=== PATIENT | female | born 1940 | race Caucasian/White ===

== ENCOUNTER 2016-05-20 08:09 | Inpatient (IN) | payer OTHER ==
[~2016-05-20] VITALS: Ht 162.6 cm; Wt 65.3 kg
--- NOTE | ~2016-05-20 | CNG ---
[place] [address] CYTO-NONGYN REPORT PROCEDURE Name: MEL NIÑO SEPTEMBER Room #: 301-I DIS IN M.R.#: [id number] Admission: 05/20/16 Date of : 36 Discharge: 05/24/16 Report #: [id number] Path Case #: [id number] CYTOPATHOLOGY REPORT COLLECTION DATE: 05/23/2016 RECEIVED DATE: 05/23/2016 SUBMITTING PHYS: Dr. Magnus Shen OTHER PHYS: Dr. Freddy Dorsey CLINICAL HISTORY: Chest pain. SPECIMEN(S) RECEIVED: A.Pleural fluid, Right * * * * * * * * * * * * FINAL DIAGNOSIS: Pleural fluid, right: - Many mature appearing lymphocytes present amongst few mesothelial cells. COMMENT: Suggest clinical correlation and flow studies if a lymphoproliferative disorder is suspected. (DMITRY:; d/t: 05/26/16) PATHOLOGIST: Karthikeyan Duncan M.D. REPORT ELECTRONICALLY SIGNED BY: Karthikeyan Duncan M.D. DATE/TIME: 05/26/2016 12:35 * * * * * * * * * * * * GROSS PATHOLOGY: A. Pleural fluid, Right: The specimen is submitted unfixed, labeled "Mel Niño September". Received by the Cytology Department is 15 mL of gómez fluid out of a total volume of 900 ml's. One ThinPrep slide and a cell block were prepared. (clt 1.27.2017) WIRE HARNESS DESIGN ENGINEER(S): Heena Kennedy, TRESSA(ASCP) INITIAL CPT CODE(S): A; 54108, 56067 Professional services performed by [facility] at [address], [place] [address] Technical services performed by [facility] at [address] [place] [address]., [address], [place] [address]. [address] [place] [address] CYTO-NONGYN REPORT PROCEDURE Name: MEL NIÑO SEPTEMBER Room #: 301-I DIS IN M.R.#: [id number] Admission: 05/20/16 Date of : 36 Discharge: 05/24/16 Report #: [id number] Path Case #: [id number] [facility] [address] [place] [address], [address] [place] [address] PHONE: [phone] DIRECTOR: Jimy Fernandes M.D. * * * END OF REPORT * * *
--- NOTE | ~2016-05-20 | EKG ---
[place] [address] [facility] [place] [address] ELECTROCARDIOGRAM REPORT Name: TIO NIÑO SEPTEMBER Room #: 301-I ADM IN M.R.#: [id number] Admission: 05/20/16 Attend Phys: Ignacio Hayes MD Discharge: Date of : 36 Report #: [id number] THIS REPORT FOR: //name// [facility] ED Test Date: 2016-05-20 Test Time: 08:13:48 Pat Name: TIO NIÑO Department: Room: 301 I Gender: F Pmo Lead: GALINDO : 1940 Requested By: Perlita Mac Order Number: [id number] MD: Vinod Campbell Measurements Intervals [place] Rate: 90 P: 83 UT: 183 QRS: -63 QRSD: 99 T: 54 QT: 381 QTc: 467 Interpretive Statements Sinus rhythm Left anterior fascicular block Poor R wave progression Compared to ECG 12/19/2015 21:16:05 Left anterior fascicular block now present Ventricular premature complex(es) no longer present Electronically Signed On 05-21-2016 7:46:19 HEALTH CAREERS INSTRUCTOR by Vinod Campbell [email or web address] <ELECTRONICALLY SIGNED> By: Vinod aCmpbell MD, [facility] 05/21/16 0746 2 2 Vinod Campbell MD, [facility] /EPI
--- NOTE | ~2016-05-20 | EKG ---
[place] [address] [facility] [place] [address] ELECTROCARDIOGRAM REPORT Name: TIO NIÑO SEPTEMBER Room #: 301-I ADM IN M.R.#: [id number] Admission: 05/20/16 Attend Phys: Ignacio Hayes MD Discharge: Date of : 36 Report #: [id number] THIS REPORT FOR: //name// [facility] Test Date: 2016-05-21 Test Time: 07:06:35 Pat Name: TIO NIÑO Department: Room: 301 I Gender: F Manager Field Services: bridget : 1940 Requested By: Jaymie Iyer Order Number: [id number] MD: Vinod Campbell Measurements Intervals [place] Rate: 77 P: 47 NV: 214 QRS: -42 QRSD: 100 T: 57 QT: 430 QTc: 487 Interpretive Statements Sinus rhythm Borderline prolonged NV interval Left axis deviation Probable anteroseptal infarct, age indeterminate Baseline wander in lead(s) II,aVR No previous ECGs available for comparison Electronically Signed On 05-21-2016 8:04:33 BRAKE LINING DRILLER by Vinod Campbell [email or web address] <ELECTRONICALLY SIGNED> By: Vinod Campbell MD, [facility] 05/21/16 0804 0706 0706 Vinod Campbell MD, [facility] /EPI
--- NOTE | ~2016-05-20 | CATHLAB ---
[facility] [place] [address] INVASIVE PROCEDURE REPORT Name: TIO NIÑO SEPTEMBER Room #: 301-I ADM IN M.R.#: [id number] Admission: 05/20/16 Attend Phys: Nando Shah Discharge: Date of : 36 Date of Service: 05/21/16 1232 Report #: [id number] THIS REPORT FOR: //name// CC: Chito Hayes DATE OF SERVICE: 05/21/2016 CARDIAC CATHETERIZATION REPORT INDICATIONS: Unstable angina. Full risks, benefits, and alternatives of cardiac catheterization were explained to the patient. All questions were answered. Informed consent was obtained. The right groin area was prepped and draped in a sterile manner. Lidocaine was given subcutaneously. A 4-Indian sheath was inserted into the right femoral artery via modified Seldinger technique. CORONARY ANATOMY: 1. Left main is a large caliber vessel with an ostial 40-50% stenosis. 2. The LAD has a stent in the proximal segment, patent with moderate restenosis, 40-50%. 3. Within the stented area is a takeoff of a second diagonal artery with a stent in the ostium. This is a bifurcating stent procedure done previously. The ostium of the second diagonal artery has a 50-60% restenotic lesion. Medical therapy is recommended. 4. The first diagonal artery has an ostial 50% stenosis, unchanged from prior procedures. 5. The left circumflex artery gives off 1 obtuse marginal artery. There are no flow-limiting lesions in the left circumflex artery. 6. The RCA is a dominant vessel with a stent in the ostial segment. There is qylt-xl-wjhwcntb restenosis within the stent, 30-40%. 7. A left ventriculogram was performed revealing normal LV systolic function, ejection fraction of 20%. A left ventriculogram was performed in the COY projection revealing normal LV systolic function, ejection fraction of 60%. The LVEDP is approximately 18 mmHg. There is no gradient across the outflow tract. 8. FFR was performed on the ostial left main stenosis. A 6-Indian system was used. The patient was given 4000 units of heparin. The FFR wire was calibrated and a 2 minute infusion of Adenosine given through peripheral IV line was administered. The baseline FFR was 0.99, unchanged after 2 minutes of Adenosine. 9. At the end of the procedure, a closure device was used. IMPRESSION: 1. Patent bifurcating stents in the proximal left anterior descending and second diagonal artery with moderate restenosis. Recommend medical therapy. [address] [address] INVASIVE PROCEDURE REPORT Name: TIO NIÑO SEPTEMBER Room #: 301-I ADM IN M.R.#: [id number] Admission: 05/20/16 Attend Phys: Nando Shah Discharge: Date of : 36 Date of Service: 05/21/16 1232 Report #: [id number] 2. Mild to moderate restenosis in the stent in the ostium of the right coronary artery. 3. Mild to moderate ostial left main stenosis, negative fractional flow reserve. 4. Normal LV systolic function. PLAN: Recommend medical therapy. <ELECTRONICALLY SIGNED> By: Ed Ascencio MD 05/22/16 0930 1232 1549 Ed Ascencio MD /nt
--- NOTE | ~2016-05-20 | HC ---
[facility] [place] [address] CONSULTATION Name: TIO NIÑO SEPTEMBER Room #: 301-I ADM IN M.R.#: [id number] Admission: 05/20/16 Attend Phys: Ignacio Hayes MD Discharge: Date of : 36 Report #: [id number] THIS REPORT FOR: //name// CC: Chito Sorenson MD DATE OF SERVICE: 05/20/2016 REFERRING PROVIDER: Javed Maxwell D.O. REASON FOR CONSULTATION: Shortness of breath and pleural effusion. HISTORY OF PRESENT ILLNESS: Our group was asked to see the patient in consultation while hospitalized at [facility]. She has been followed by Dr. Sorenson of our group, last year last evaluation on 03/26/2016; has been having some shortness of breath and chest discomfort, chronic pleural effusions, for which had undergone thoracentesis twice in 2012 which were nondiagnostic transudate with persistent right greater than left pleural effusions. Subsequently, he had seen her for hemoptysis, most recently that resolved with antimicrobial therapy. She has had some persistent chronic cough productive of clear sputum. She states cough was throughout the day and also awakens her from sleep many nights. She also noted severe gastroesophageal reflux for which she takes ecko-ipj-dtavanv medications on a frequent basis but has not taken any proton pump inhibitors. Denies any fevers, chills or sweats. She also recently has been having some chest pain, although note some chronic chest heaviness. She states she feels like an elephant sitting on her chest. She has a prior known history of coronary artery disease with recent percutaneous intervention in May of 2015. Currently, she is resting comfortably in bed, on no supplemental oxygen but states she has not been ambulating since admission this morning. ALLERGIES: ____. PAST MEDICAL HISTORY: 1. History of coronary artery disease, status post sinus vzs-SH-jwgpefoyr NV in May 2015 requiring percutaneous interventions, second diagonal branch; prior history of interventions in the LAD and RCA. 2. Hypertension. 3. Hyperlipidemia. 4. Chronic diarrhea, possible irritable bowel syndrome. 5. History of coronary artery aneurysm. 6. History of multiple myeloma, complicated by amyloidosis. She states this was treated 4 years ago and has not had followup with her oncologist; in fact, the oncologist is no longer practicing. Clinical medicine only research. [address] [address] CONSULTATION Name: TIO NIÑO SEPTEMBER Room #: 301-I [facility] IN .R.#: [id number] Admission: 05/20/16 Attend Phys: Ignacio Hayes MD Discharge: Date of : 36 Report #: [id number] 7. The patient also has a history of left pneumothorax of unclear etiology. PAST SURGICAL HISTORY: Includes cholecystectomy, vaginal hysterectomy and foot surgery times 2 on the left. SOCIAL HISTORY: Ex-smoker, remote tobacco history. No significant alcohol consumption. 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 No recent travel. FAMILY HISTORY: Significant for both parents dying of emphysema or heavy tobacco users. Brother has cerebrovascular accident. REVIEW OF SYSTEMS: CONSTITUTIONAL: No fevers, chills or sweats, just some general malaise. The patient has feelings of impending doom prior to admission. ENT: No upper respiratory congestion, rhinorrhea or dysphagia. CARDIOVASCULAR: As described in HPI. GASTROINTESTINAL: Significant reflux disease and history of diarrhea and frequent abdominal cramping. GENITOURINARY: No dysuria. No frequency. INTEGUMENT: Denies any new rash. MUSCULOSKELETAL: No known joint pains or swelling. Rest of 12 point review of systems is normal as described in HPI. PHYSICAL EXAMINATION: VITAL SIGNS: Afebrile, pulse 80s, respiratory rate 18, blood pressure 166/73 and oxygen saturation 95% on room air. GENERAL: This is a thin elderly woman in no distress. HEENT: Clear oropharynx. Mallampati 1 airway. NECK: Supple. No lymphadenopathy. LUNGS: Markedly diminished right greater than left base. No wheezes or crackles. CARDIOVASCULAR: Heart was irregular. No murmurs noted. ABDOMEN: Soft and nontender. No masses. No hepatosplenomegaly. EXTREMITIES: Warm, 2+ pulses. No edema. INTEGUMENT: Without rash. LABORATORY DATA: CBC is normal. Chemistry profile also essentially normal. BNP was 2261. RADIOLOGICAL DATA: Chest x-ray reveals right greater than left bilateral pleural effusions associated atelectasis, no acute process ____ compared to more recent films. IMPRESSION: [facility] [address] [place] [address] CONSULTATION Name: TIO NIÑO SEPTEMBER Room #: 301-I ADM IN M.R.#: [id number] Admission: 05/20/16 Attend Phys: Ignacio Hayes MD Discharge: Date of : 36 Report #: [id number] 1. Pleural effusions, these appear to be chronic given the longstanding chronic nature it may be difficult for thoracentesis unless they appear free flowing and a repeat thoracentesis would be of benefit, unclear etiology, may be related to underlying cardiac disease or amyloidosis. 2. Chronic chest pain may be related pleural effusions above, may be related to underlying coronary artery disease, gastrointestinal process given her severe reflux or some other disease process. 3. Persistent cough maybe related to obstructive lung disease although it is not responded to bronchodilator inhalers in the past in our office; significant reflux may be considered, although the patient dismisses this idea . The severity of reflux sounds significant and severe reflux may be a cause of persistent cough; however, underlying lung disease should also be considered given her progressive exertional dyspnea as well. 4. Recent hemoptysis, nothing in the last few months. 5. History of coronary artery disease. 6. History of amyloidosis. 7. History of myeloma. SUGGESTIONS: 1. Spirometry pre and post-bronchodilator. 2. Check CT scan of the chest. 3. Await further cardiac workup per cardiology. 4. Trial twice daily proton pump inhibitor. 5. Additional recommendations pending results of above. If free flowing large pleural effusion on CT imaging might consider repeat thoracentesis to further evaluate. We will follow along with you. Thank you for requesting our suggestions. <ELECTRONICALLY SIGNED> By: Magnus Shen MD 05/21/16 1517 1536 0116 Magnus Shen MD /nt
--- NOTE | ~2016-05-20 | EKG ---
[place] [address] [address] [facility] [place] [address] ELECTROCARDIOGRAM REPORT Name: TIO NIÑO SEPTEMBER Room #: 301-I ADM IN M.R.#: [id number] Admission: 05/20/16 Attend Phys: Ignacio Hayes MD Discharge: Date of : 36 Report #: [id number] THIS REPORT FOR: //name// [facility] Test Date: 2016-05-22 Test Time: 14:58:52 Pat Name: TIO NIÑO Department: Room: 301 I Gender: F Franchise Sales Manager: Nando MARRERO : 1940 Requested By: Teena Brannon Order Number: [id number] MD: Vinod Campbell Measurements Intervals [place] Rate: 75 P: 24 MT: 197 QRS: -48 QRSD: 104 T: QT: 420 QTc: 470 Interpretive Statements Sinus rhythm LAD, consider left anterior fascicular block LVH with secondary repolarization abnormality Anterior infarct, old Baseline wander in lead(s) II Compared to ECG 05/21/2016 07:06:35 no significant change was found Electronically Signed On 05-23-2016 9:26:22 CAN SEALER by Vinod Campbell [email or web address] <ELECTRONICALLY SIGNED> By: Vinod Campbell MD, [facility] 05/23/16 0926 1458 1458 Vinod Campbell MD, [facility] /EPI
[~2016-05-20 08:09] MED LIST: ACETAMINOPHEN325 M1 PO; APAP500; APAP500 PO; APAP650 PO; ASPIR 8181 MG PO; B COMPLEX-VITA1 EACH PO; CLARITIN10 MG PO; COLACE 100 MG100 MG PO; FLAX OIL1000 MG PO; GAS-X125 MG PO; HYDROCODONE-AP1 EAC6 PO; IMDUR 30 MG TAB30 M1 PO; IMODIUM MULTI-1 EACH PO; LASIX 40 MG TAB40 M2; LASIX 40 MG TAB40 M2 PO; LIDODERM 5%1 PATC1 TRANSDERM; LISINOPRIL2.5 MG PO; LOPERAMIDE 2 MG2 M1; LOPERAMIDE 2 MG2 M1 PO; LOPRESSOR25 PO; METOPROLOL SUCC25 M1 PO; MULTIVITAMINS1 EAC7 PO; NITROGLYCERIN0.4 MG SUBLING; NITROSTAT0.4 M1 SL; PANTOPRAZOLE SO40 M1 PO; PEPCID AC10 MG; PLAVIX 75 MG TA75 M1 PO; POTASSIUM CHLO10 ME1 PO; PREDNISONE 20 M20 MG PO; PREMARIN0.625 MG PO; PREMARIN1.25 MG PO; SENNA PLUS TAB1 EACH; SENNA8.6 MG; TOPROL XL50 MG PO; TUMS PO; VITAMIN B-12 SUBLING; VITAMIN B-12500 MCG PO; ZOFRAN ODT4 M1 PO
[2016-05-20 08:10] VITALS: BP 149/87
[2016-05-20] MEDS ORDERED: TOPROL XL25 MG PO (08:27)
[2016-05-20] MEDS ORDERED: MELATONIN3 MG PO ×2 (08:28→08:32)
[2016-05-20 08:32] LABS: ABSOLUTE NEUTROPHILS 7.3 thou/uL (1.4-8.2); EOSINOPHILS 2.2 % (0.0-3.0); HEMATOCRIT 41.9 % (37.0-47.0); HEMOGLOBIN 14.5 gm/dL (12.0-15.0); LYMPHOCYTES 19.8 % (24.0-44.0); MCH 32.1 pg (26.0-34.0); MCHC 34.6 % (28.0-37.0); MCV 92.7 fL (80.0-100.0); MONOCYTES 7.6 % (1.0-8.0); PLATELET COUNT 267 thou/uL (150-400); POLYS 69.4 % (36.0-66.0); RBC 4.52 mil/uL (4.20-5.00); RDW 13.1 % (10.5-14.5); WBC 10.5 thou/uL (4.0-11.0)
[2016-05-20 08:34] LABS: MANUAL DIFF NO
[2016-05-20 08:53] LABS: ANION GAP 7 mmol/L (7-16); BUN 21 mg/dL (7-18); CALCIUM 9.5 mg/dL (8.5-10.1); CHLORIDE 103 mmol/L (98-107); CO2 27 mmol/L (21-32); GLUCOSE 88 mg/dL (70-99); POTASSIUM 4.1 mmol/L (3.5-5.1); SODIUM 137 mmol/L (136-145)
[2016-05-20 09:06] LABS: NT-PRO BRAIN NAT PEPTIDE 2261 pg/mL (<300); TROPONIN-I < 0.04 ng/mL (<0.04-0.07)
[2016-05-20 11:35] VITALS: BP 150/68
[2016-05-20 12:06] VITALS: BP 166/73
[2016-05-20 16:17] VITALS: BP 141/85
[2016-05-20 19:10] VITALS: BP 150/74
[2016-05-21] VITALS (11 sets, daily range): BP systolic 129–155; BP diastolic 55–78
[2016-05-22 04:00] VITALS: BP 108/58
[2016-05-22 04:48] VITALS: BP 108/55
[2016-05-22 05:42] LABS: HEMATOCRIT 39.2 % (37.0-47.0); HEMOGLOBIN 12.9 gm/dL (12.0-15.0); MCH 31.4 pg (26.0-34.0); MCV 95.3 fL (80.0-100.0); RBC 4.11 mil/uL (4.20-5.00); RDW 12.9 % (10.5-14.5); WBC 8.3 thou/uL (4.0-11.0)
[2016-05-22 05:52] LABS: CALCIUM 9.1 mg/dL (8.5-10.1); CREATININE 0.9 mg/dL (0.6-1.3); POTASSIUM 4.2 mmol/L (3.5-5.1)
[2016-05-22 08:38] VITALS: BP 118/60
[2016-05-22 12:39] VITALS: BP 135/70
[2016-05-22 14:11] LABS: HEMATOCRIT 39.8 % (37.0-47.0); HEMOGLOBIN 13.3 gm/dL (12.0-15.0); MCHC 33.3 % (28.0-37.0); MCV 93.1 fL (80.0-100.0); RBC 4.28 mil/uL (4.20-5.00); WBC 10.5 thou/uL (4.0-11.0)
[2016-05-22 14:19] LABS: CALCIUM 9.2 mg/dL (8.5-10.1); POTASSIUM 4.4 mmol/L (3.5-5.1)
[2016-05-22 14:22] LABS: PROTIME 10.6 Seconds (9.3-11.4)
[2016-05-22 20:00] VITALS: BP 157/69
[2016-05-23 04:00] VITALS: BP 126/58
[2016-05-23 07:51] VITALS: BP 125/67
[2016-05-23 12:00] VITALS: BP 128/60
[2016-05-23 12:59] LABS: TOTAL VOLUME 60
[2016-05-23 16:00] VITALS: BP 132/62
[2016-05-23 19:18] VITALS: BP 122/62
[2016-05-24 03:39] VITALS: BP 113/52
[2016-05-24 08:09] VITALS: BP 124/70
[2016-05-24 11:47] VITALS: BP 124/70
[2016-05-24 14:06] LABS: BF NUCLEATED CELLS 1620 /mm3 (0-499); BF RBC 3000 /uL (Not Estab.); CLARITY CLOUDY (Clear); COLOR YL (())
[2016-05-25 16:06] LABS: BODY FLUID ALBUMIN 1.8 g/dL (()); BODY FLUID AMYLASE 37 U/L (()); BODY FLUID GLUCOSE 99 mg/dL (()); BODY FLUID LDH 76 IU/L (()); BODY FLUID PROTEIN 2.6 g/dL (())
== END 2016-05-24 13:33 | disposition home or self-care (01) | DRG 287 ==
LOC: ER 08:09 → 3N 10:44 → EROBS 10:44 → 3N 11:35
PROVIDERS: Emergency Medicine; Internal Medicine Cardiovascular Disease; Internal Medicine Pulmonary Disease
PROC: B2111ZZ Fluoroscopy of Multiple Coronary Arteries using Low Osmolar Contrast (ICD-10-PCS; principal; 2016-05-21)
PROC: 4A023N7 Measurement of Cardiac Sampling and Pressure, Left Heart, Percutaneous Approach (ICD-10-PCS; principal; 2016-05-21)
PROC: B2151ZZ Fluoroscopy of Left Heart using Low Osmolar Contrast (ICD-10-PCS; principal; 2016-05-21)
PROC: 0W993ZZ Drainage of Right Pleural Cavity, Percutaneous Approach (ICD-10-PCS; 2016-05-23)
DX: I25.110 Atherosclerotic heart disease of native coronary artery with unstable angina pectoris (principal); J90 Pleural effusion, not elsewhere classified; R07.9 Chest pain, unspecified; I42.9 Cardiomyopathy, unspecified; G89.29 Other chronic pain; E78.5 Hyperlipidemia, unspecified; I25.41 Coronary artery aneurysm; I11.0 Hypertensive heart disease with heart failure; I50.9 Heart failure, unspecified; K52.9 Noninfective gastroenteritis and colitis, unspecified; Z95.5 Presence of coronary angioplasty implant and graft; Z90.710 Acquired absence of both cervix and uterus; Z90.49 Acquired absence of other specified parts of digestive tract; I25.2 Old myocardial infarction; Z87.891 Personal history of nicotine dependence; Z82.49 Family history of ischemic heart disease and other diseases of the circulatory system; Z91.19 Patient's noncompliance with other medical treatment and regimen
CPT/HCPCS: 10795

== ENCOUNTER 2016-08-22 15:55 | Inpatient (IN) | payer OTHER ==
[~2016-08-22] VITALS: Ht 162.6 cm; Wt 62.4 kg
--- NOTE | ~2016-08-22 | EKG ---
[place] [address] [address] [place] [address] ELECTROCARDIOGRAM REPORT Name: TIO NIÑO SEPTEMBER Room #: 202-P ADM IN M.R.#: [id number] Admission: 08/22/16 Attend Phys: Ignacio Hayes MD Discharge: Date of : 36 Report #: [id number] THIS REPORT FOR: //name// [facility] ED Test Date: 2016-08-22 Test Time: 15:56:36 Pat Name: TIO NIÑO Department: Room: 202 Gender: F Air Breaker Operator: : 1940 Requested By: Karen Abreu Order Number: [id number] MD: Vinod Campbell Measurements Intervals [place] Rate: 116 P: 0 IL: 146 QRS: -61 QRSD: 103 T: 59 QT: 332 QTc: 462 Interpretive Statements Sinus tachycardia Multiple ventricular premature complexes LAD, consider left anterior fascicular block Poor R-wave progression Compared to ECG 05/22/2016 14:58:52 nonspecific change in the ST and T waves segments Electronically Signed On 08-24-2016 12:39:53 CDT by Vinod Campbell [email or web address] <ELECTRONICALLY SIGNED> By: Vinod Campbell MD, [facility] 08/24/16 1239 1556 1556 Vinod Campbell MD, [facility] /EPI
--- NOTE | ~2016-08-22 | S ---
[facility] [place] [address] SURGICAL PATH RPT PROCEDURE Name: MEL NIÑO Room #: 202-P DIS IN M.R.#: [id number] Admission: 08/22/16 Date of : 36 Discharge: 08/26/16 Report #: [id number] Path Case #: [id number] PATHOLOGY REPORT COLLECTION DATE: 08/25/2016 RECEIVED DATE: 08/26/2016 SUBMITTING PHYS: Dr. Tiburcio Rinaldi OTHER PHYS: Dr. Chito Pierre SPECIMEN(S) RECEIVED: A.Gastritis/gastric body * * * * * * * * * * * * FINAL DIAGNOSIS: "Gastritis/gastric body", biopsy: - Gastric mucosa with mild reactive changes and mild chronic inflammation. - Negative H. pylori immunohistochemical stain (block A1); control reacted appropriately. PATHOLOGIST: Marilynn La M.D. REPORT ELECTRONICALLY SIGNED BY: Marilynn La M.D. DATE/TIME: 08/27/2016 22:01 * * * * * * * * * * * * GROSS PATHOLOGY: Received in formalin labeled "Mel Niño Loli, gastric body," are 3 segments of herrera soft tissue measuring 1.0 x 0.3 x 0.2 cm in aggregate dimensions and ranging from 0.2 to 0.4 cm in maximum dimension. The specimen is submitted entirely in cassette A1. (JORDANA; 08/26/2016) CLINICAL HISTORY: Gastritis, small hiatal hernia, S ring INITIAL CPT CODE(S): A; 24434, 79266 Professional services performed by [facility] at [facility] [address], [place] [address] Technical services performed by [facility] at [address] [place] [address]. [facility] [address] [place] [address] SURGICAL PATH RPT PROCEDURE Name: MEL NIÑO SEPTEMBER Room #: 202-P DIS IN M.R.#: [id number] Admission: 08/22/16 Date of : 36 Discharge: 08/26/16 Report #: [id number] Path Case #: [id number] [facility] [address] [address] PHONE: [phone] DIRECTOR: Jimy Fernandes M.D. * * * END OF REPORT * * *
--- NOTE | ~2016-08-22 | P ---
[facility] [place] [address] PROCEDURE REPORT Name: TIO NIÑO SEPTEMBER Room #: 202-P DIS IN M.R.#: [id number] Admission: 08/22/16 Attend Phys: Ignacio Hayes MD Discharge: 08/26/16 Date of : 36 Report #: [id number] THIS REPORT FOR: //name// CC: Chito Hayes INPATIENT UPPER ENDOSCOPY NOTE BRIEF HISTORY: The patient is a 76-year-old woman with known coronary disease and coronary stents, who was admitted with upper abdominal pain and chest pain. She does have occasional heartburn. It was felt that her current chest pain is noncardiac in etiology. PREOPERATIVE DIAGNOSES: Abdominal pain, chest pain and intermittent solid food dysphagia. POSTOPERATIVE DIAGNOSES: 1. Tjas-my-qzidrerk antral gastritis. 2. Small hiatus hernia. 3. Schatzki ring. MEDICATIONS: Deep sedation with propofol per anesthesia. SPECIMEN: Biopsies of gastritis. ESTIMATED BLOOD LOSS: 3 mL. PROCEDURE: EGD with biopsy. FINDINGS: Prior to propofol sedation, procedure of upper endoscopy discussed with the patient as well as potential risks and its complications. She indicates she understands and desires to proceed. DESCRIPTION OF PROCEDURE: With the patient in the left lateral decubitus position, the [employer] video endoscope was inserted in the cervical esophagus under direct vision without any difficulty. Examination of this organ through its entire length revealed normal esophageal mucosa down to the squamocolumnar junction. Examination of the squamocolumnar junction revealed normal mucosa. Mullen mucosa was not seen. However, intermittently a mild ring was seen. It was noted she does have complaints of intermittent solid food dysphagia. The ring had a typical appearance and there was no evidence of ulceration or Mullen mucosa. In addition, a small 2-cm sliding-type hiatus hernia was intermittently seen. Scope was advanced in to the stomach, which was examined on end views as well as the retroflexed views. There was a pattern of diffuse gastritis to a moderate degree. No ulcers, erosions or bleeding lesions were seen. Upon retroflexion, no mass lesions were seen. Pylorus was normal. Duodenal bulb was [facility] [address] [place] [address] PROCEDURE REPORT Name: TIO NIÑO SEPTEMBER Room #: 202-P DIS IN M.R.#: [id number] Admission: 08/22/16 Attend Phys: Ignacio Hayes MD Discharge: 08/26/16 Date of : 36 Report #: [id number] normal. Postbulbar duodenal sweep was noted to be normal as well. The scope was withdrawn back in the stomach and biopsies obtained of the gastritis and particularly to evaluate for H. pylori. We obtained several biopsies including one from the antrum. It was interesting to note that the antral biopsy appeared to be very deep after the biopsy was obtained. Therefore, hemostatic clip was placed on this site because it was deeper than usual. However, the first 2 clips did not break off of their deployment catheter as they should have. We then used the third clip a separate lot, which broke appropriately. The biopsy site was completely closed. At that point, the scope was slowly withdrawn and careful circumferential views confirmed the above findings. The patient tolerated procedure well. Due to her complaints of dysphagia and the finding of a ring, she was dilated with passage of a 50-Tanzanian Agustin dilator after the upper endoscopy. DISPOSITION: The patient with atypical chest pain. Upper endoscopy did not reveal evidence of any ulcers or esophagitis. I think it will be reasonable to continue PPI at this point in time. It is noted she is status post cholecystectomy and adhesions could be another source of her pain. No plans for additional GI workup at this point in time. <ELECTRONICALLY SIGNED> By: Tiburcio Rinaldi MD 08/30/16 1228 1402 0036 Tiburcio Rinaldi MD /nt
--- NOTE | ~2016-08-22 | HC ---
[facility] [place] [address] CONSULTATION Name: TIO NIÑO SEPTEMBER Room #: 202-P ADM IN M.R.#: [id number] Admission: 08/22/16 Attend Phys: Ignacio Hayes MD Discharge: Date of : 38 Report #: [id number] THIS REPORT FOR: //name// CC: Chito Hayes GASTROINTESTINAL CONSULT REASON FOR CONSULTATION: Chest pain/epigastric pain. HISTORY OF PRESENT ILLNESS: The patient is a 76-year-old white female, admitted through the Emergency Room after a sudden onset of extreme weakness at the mall. She relates that she experienced extreme weakness, almost fainting and inability to walk while she was at [facility]. On the day of admission 08/22/2016, she was emergently transported to the Emergency Room and it was also reported that she had a chest pain and upper abdominal pain. She has known coronary artery disease and had recently been hospitalized, undergoing cardiac catheterization with evidence of restenosis of 1/[address] During her hospitalization, she has been evaluated by Cardiology and serum troponin levels have not elevated, but EKG has been abnormal. She does relate indigestion on a daily basis and recurrent upper mid abdominal pain. She has a history of abdominal bloating and discomfort and has been diagnosed with IBS in the past. She may take Gas-X for abdominal bloating, Pepcid-AC for acid reflux or indigestion and occasional Pepto-Bismol. She has not noted any recent evidence of blood in her stool. In times past when on Plavix, she had bleeding from her nose, mouth, urine and had blood in her stool. She had been evaluated by Gastroenterology during her hospitalization in May 2015. At that time, she reported alternating diarrhea, constipation and abdominal pain with loose stools. She also had multiple upper GI symptoms. At first, she denied any previous history of EGD or colonoscopy and then later with recall, believes that she had an incomplete colonoscopy that was not able to be completed. PAST MEDICAL HISTORY: She has undergone previous cholecystectomy and hysterectomy. She has had recurrent pleural effusions requiring thoracentesis, coronary artery disease with previous OH. She has a history of multiple myeloma and amyloidosis. She underwent treatment for multiple myeloma in 2012 and no followup was required. CURRENT MEDICATIONS: Isosorbide mononitrate 30 mg per day (after IV nitroglycerin was discontinued), aspirin 81 mg per day, nitroglycerin as needed, simethicone 80 mg b.i.d. as needed, ondansetron 4 mg IV every 4 hours as needed, pantoprazole 40 mg IV b.i.d., and morphine sulfate p.r.n. ALLERGIES: No known drug allergies. [address] [address] CONSULTATION Name: TIO NIÑO SEPTEMBER Room #: 202-P [facility] IN M.R.#: [id number] Admission: 08/22/16 Attend Phys: Ignacio Hayes MD Discharge: Date of : 38 Report #: [id number] SOCIAL HISTORY: She does not smoke cigarettes or drink alcohol. FAMILY HISTORY: She has no known family history of colon cancer. REVIEW OF SYSTEMS: She has had no recent fevers or chills. She does not have significant shortness of breath, wheezing, or coughing. She had chest pain and upper abdominal pain as described above. She had no associated nausea or vomiting. She does have a history of IBS. PHYSICAL EXAMINATION: GENERAL: She appears alert and in no acute distress at rest, conversant and appropriate in conversation and afebrile. VITAL SIGNS: Blood pressure 114/68 and pulse 86 this morning. HEENT: No scleral icterus. NECK: Supple, without lymphadenopathy. CARDIOVASCULAR: Heart rate and rhythm regular. LUNGS: Clear to auscultation. ABDOMEN: Soft, nondistended with no obvious hepatosplenomegaly or palpable mass. She has mild tenderness to palpation in the epigastrium. EXTREMITIES: She has no significant peripheral edema. LABORATORY DATA: On 08/22, white blood cell count 10.8, hemoglobin 15.5, and platelet count 285,000. INR 1.0. Complete metabolic profile reveals sodium 133 and chloride low at 96. Serial troponin levels were not elevated. IMPRESSION: 1. Sudden onset weakness while shopping at the mall, etiology unclear. 2. Coronary artery disease. 3. Chronic dyspepsia for which she has taken p.r.n. Pepcid. 4. History of irritable bowel syndrome. 5. Personal history of multiple myeloma, treated in 2013 with amyloidosis. RECOMMENDATIONS: 1. Continue IV pantoprazole 40 mg b.i.d. 2. Monitor symptoms after discontinue IV nitroglycerin. 3. Hold on consideration of EGD for now. If cardiac status is stable off IV nitroglycerin, EGD may be considered prior to discharge. If symptoms fully resolved, PPI would also be a reasonable option. <ELECTRONICALLY SIGNED> By: Gaurav Solomon MD 08/24/16 1033 1224 2647 Gaurav Solomon MD /nt
[2016-08-22 15:55] VITALS: BP 141/81
[~2016-08-22 15:55] MED LIST changes: +MELATONIN3 MG PO; +TOPROL XL25 MG PO
[2016-08-22 16:11] LABS: POC CA IONIZED 4.8 mg/dL (4.5-5.3); POC HEMOGLOBIN 15.6 g/dL (12.0-15.0)
[2016-08-22 16:18] LABS: BASOPHILS 0.7 % (0.0-2.0); EOSINOPHILS 0.9 % (0.0-3.0); HEMATOCRIT 44.1 % (37.0-47.0); HEMOGLOBIN 15.5 gm/dL (12.0-15.0); LYMPHOCYTES 17.5 % (24.0-44.0); MCH 32.5 pg (26.0-34.0); MCHC 35.3 g/dL (28.0-37.0); MCV 92.2 fL (80.0-100.0); MONOCYTES 6.2 % (1.0-8.0); PLATELET COUNT 285 thou/uL (150-400); POLYS 74.7 % (36.0-66.0); RBC 4.78 mil/uL (4.20-5.00); RDW 13.3 % (10.5-14.5); WBC 10.8 thou/uL (4.0-11.0)
[2016-08-22 16:19] LABS: MANUAL DIFF NO
[2016-08-22 16:26] LABS: ANION GAP 10 mmol/L (7-16); BUN 17 mg/dL (7-18); CHLORIDE 96 mmol/L (98-107); CO2 27 mmol/L (21-32); CREATININE 1.1 mg/dL (0.6-1.0); GLUCOSE 123 mg/dL (74-106); SODIUM 133 mmol/L (136-145)
[2016-08-22 16:31] LABS: APTT 26.4 Seconds (24.5-32.8); PROTIME 10.2 Seconds (9.3-11.4)
[2016-08-22 16:34] LABS: TROPONIN-I < 0.04 ng/mL (<0.04-0.07)
[2016-08-22 17:41] VITALS: BP 105/71
[2016-08-22] MEDS ORDERED: ASPIR 8181 MG PO (21:16)
[2016-08-22] MEDS ORDERED: IBGARD90 MG PO (21:17)
[2016-08-22 23:13] VITALS: BP 133/54
[2016-08-23 04:55] VITALS: BP 98/50
[2016-08-23 05:03] LABS: ALBUMIN 3.1 g/dL (3.4-5.0); ALKALINE PHOSPHATASE 79 U/L (46-116); ANION GAP 6 mmol/L (7-16); BUN 16 mg/dL (7-18); CALCIUM 8.7 mg/dL (8.5-10.1); CHLORIDE 101 mmol/L (98-107); CO2 27 mmol/L (21-32); CREATININE 0.9 mg/dL (0.6-1.0); GLUCOSE 82 mg/dL (74-106); POTASSIUM 4.1 mmol/L (3.5-5.1); SGOT 25 U/L (15-37); SGPT 18 U/L (30-65); SODIUM 134 mmol/L (136-145); TOTAL BILIRUBIN 0.7 mg/dL (<0.1-1.0); TROPONIN-I < 0.04 ng/mL (<0.04-0.07)
[2016-08-23 06:45] VITALS: BP 114/68
[2016-08-23 11:35] VITALS: BP 127/68
[2016-08-23 15:35] VITALS: BP 101/55
[2016-08-23 19:17] VITALS: BP 128/77
[2016-08-24 03:14] VITALS: BP 112/55
[2016-08-24 07:00] VITALS: BP 146/88; BP 98/48
[2016-08-24] MEDS ORDERED: PROTONIX40 M1 PO (10:40)
[2016-08-24] MEDS ORDERED: IMDUR 30 MG TAB30 M1 PO (10:40)
[2016-08-24 11:10] VITALS: BP 101/43
[2016-08-24 17:30] VITALS: BP 100/40
[2016-08-24 19:57] VITALS: BP 144/64
[2016-08-25 04:41] VITALS: BP 113/55
[2016-08-25 07:35] VITALS: BP 139/69
[2016-08-25 12:06] VITALS: BP 129/62
[2016-08-25 14:55] VITALS: BP 132/62
[2016-08-25 19:23] VITALS: BP 138/57
[2016-08-26 02:49] VITALS: BP 136/68
[2016-08-26 07:05] VITALS: BP 119/54
[2016-08-26 09:38] VITALS: BP 119/54
== END 2016-08-26 11:50 | disposition home or self-care (01) | DRG 392 ==
LOC: ER 15:55 → 2N 17:03 → EROBS 17:03 → 2N 17:26
PROVIDERS: Emergency Medicine; Family Medicine
PROC: 0DB68ZX Excision of Stomach, Via Natural or Artificial Opening Endoscopic, Diagnostic (ICD-10-PCS; principal; 2016-08-25)
DX: K29.70 Gastritis, unspecified, without bleeding (principal); I42.9 Cardiomyopathy, unspecified; J90 Pleural effusion, not elsewhere classified; I25.110 Atherosclerotic heart disease of native coronary artery with unstable angina pectoris; E44.1 Mild protein-calorie malnutrition; R07.9 Chest pain, unspecified; I50.9 Heart failure, unspecified; K58.9 Irritable bowel syndrome, unspecified; I11.0 Hypertensive heart disease with heart failure; E78.5 Hyperlipidemia, unspecified; K44.9 Diaphragmatic hernia without obstruction or gangrene; K22.2 Esophageal obstruction; Z85.79 Personal history of other malignant neoplasms of lymphoid, hematopoietic and related tissues; Z90.49 Acquired absence of other specified parts of digestive tract; Z90.710 Acquired absence of both cervix and uterus; I25.2 Old myocardial infarction; Z95.5 Presence of coronary angioplasty implant and graft
CPT/HCPCS: 10081; 62110; 62900

== ENCOUNTER 2016-09-26 19:24 | Emergency (ER) | payer OTHER ==
[~2016-09-26] VITALS: Ht 162.6 cm; Wt 60.8 kg
--- NOTE | ~2016-09-26 | EKG ---
[place] [address] [facility] [place] [address] ELECTROCARDIOGRAM REPORT Name: TIO NIÑO [facility] [id number] Admission: 09/26/16 Attend Phys: Discharge: 09/26/16 Date of : 38 Report #: [id number] THIS REPORT FOR: //name// [facility] ED Test Date: 2016-09-26 Test Time: 19:27:40 Pat Name: TIO NIÑO Department: Room: Gender: F [employer] Attendant: SHANA : 1940 Requested By: Karen Abreu Order Number: [id number] MD: Vinod Campbell Measurements Intervals [place] Rate: 94 P: 81 MO: 190 QRS: -57 QRSD: 104 T: 57 QT: 398 QTc: 498 Interpretive Statements Sinus rhythm Left axis deviation Probable anteroseptal infarct, recent Compared to ECG 08/22/2016 15:56:36 Myocardial infarct finding now present Sinus tachycardia no longer present Ventricular premature complex(es) no longer present Electronically Signed On 09-27-2016 16:43:53 CDT by Vinod Campbell [email or web address] <ELECTRONICALLY SIGNED> By: Vinod Campbell MD, [facility] 09/27/16 1643 192 26 Vinod Campbell MD, [facility] /EPI
[~2016-09-26 19:24] MED LIST changes: +IBGARD90 MG PO; +PROTONIX40 M1 PO
[2016-09-26 19:48] LABS: HEMOGLOBIN 13.8 gm/dL (12.0-15.0); MCH 32.1 pg (26.0-34.0); MCHC 34.5 g/dL (28.0-37.0); MCV 93.2 fL (80.0-100.0); PLATELET COUNT 240 thou/uL (150-400); RBC 4.29 mil/uL (4.20-5.00); RDW 13.4 % (10.5-14.5); WBC 9.5 thou/uL (4.0-11.0)
[2016-09-26 19:49] LABS: MANUAL DIFF YES
[2016-09-26 19:54] LABS: ANION GAP 11 mmol/L (7-16); BUN 19 mg/dL (7-18); CALCIUM 9.6 mg/dL (8.5-10.1); CHLORIDE 101 mmol/L (98-107); CO2 22 mmol/L (21-32); GLUCOSE 93 mg/dL (74-106); POTASSIUM 4.1 mmol/L (3.5-5.1); SODIUM 134 mmol/L (136-145)
[2016-09-26 20:02] LABS: TROPONIN-I < 0.04 ng/mL (<0.04-0.07)
[2016-09-26 20:09] LABS: ABSOLUTE NEUTROPHILS 7.2 thou/uL (1.4-8.2); TOTAL CELL COUNT 100
[2016-09-26] MEDS ORDERED: TOPROL XL25 MG PO (20:16)
== END 2016-09-26 23:04 | disposition home or self-care (01) ==
LOC: ER 19:24
PROVIDERS: Emergency Medicine
DX: J90 Pleural effusion, not elsewhere classified (principal); I11.0 Hypertensive heart disease with heart failure; I50.9 Heart failure, unspecified; I25.10 Atherosclerotic heart disease of native coronary artery without angina pectoris; I42.9 Cardiomyopathy, unspecified; Z90.89 Acquired absence of other organs; Z85.79 Personal history of other malignant neoplasms of lymphoid, hematopoietic and related tissues; Z95.5 Presence of coronary angioplasty implant and graft

== ENCOUNTER → 2016-11-05 | Outpatient (CLI) | payer OTHER | LOC: LABMALL 14:58 | DX: R06.00 Dyspnea, unspecified (principal) ==

== ENCOUNTER → 2016-11-05 | Outpatient (CLI) | payer OTHER | LOC: RAD 14:52 | DX: J90 Pleural effusion, not elsewhere classified (principal) ==

== ENCOUNTER 2016-11-28 21:33 | Inpatient (IN) | payer OTHER ==
[~2016-11-28] VITALS: Ht 162.6 cm; Wt 61.4 kg
--- NOTE | ~2016-11-28 | HC ---
[facility] [place] [address] CONSULTATION Name: TIO NIÑO SEPTEMBER Room #: 459-P ADM IN M.R.#: [id number] Admission: 11/29/16 Attend Phys: Ignacio Hayes MD Discharge: Date of : 38 Report #: [id number] THIS REPORT FOR: //name// CC: Chito Hayes Registered Vascular Technologist (Rvt) DATE OF SERVICE: 12/11/2016 NEPHROLOGY CONSULTATION REASON FOR CONSULTATION: Elevated creatinine and hyponatremia. HISTORY OF PRESENT ILLNESS: A 76-year-old patient with known myeloma and amyloidosis, with known lambda light chains, was initially treated in 2013 for several months, but ended treatment due to financial reasons and has not been treated since. She has developed pulmonary disease, has had recurrent effusions and now pneumothoraces. Has had bilateral chest tubes; this admission now, just has one chest tube in. Has had pain and was treated with Toradol. Has had a low serum sodium and the creatinine has elevated from 0.8 to 1.5. PAST MEDICAL HISTORY: She has a history of heart failure, coronary artery disease. She has had the myeloma. She has had hysterectomy and cholecystectomy. She has had multiple thoracenteses and cardiac stents. ALLERGIES: She has had allergies reportedly to DOXYCYCLINE. FAMILY HISTORY: Really does not know much about her family history. Parents both were smokers and alcoholics. SOCIAL HISTORY: She has gone through 3 husbands; at this point, lives alone. Has had second-hand smoke exposure. REVIEW OF SYSTEMS: GENERAL: She feels poorly. EYES: Her vision is okay. ENT: Hearing okay. She swallows okay. She denies mouth ulcers. ENDOCRINE: No diabetes or thyroid disease. RESPIRATORY: Easily short-winded. No hemoptysis. CARDIAC: Currently, no swelling, angina or palpitations. GASTROINTESTINAL: Very poor appetite, not eating much. She has had some GI bleeding and epistaxis. GENITOURINARY: Reasonably good stream. No dysuria or stone disease. NEUROLOGIC: Generalized weakness. No syncope, seizure or stroke history. PSYCHIATRIC: She seems somewhat depressed. [facility] [address] [place] [address] CONSULTATION Name: TIO NIÑO SEPTEMBER Room #: 459-P [facility] IN M.R.#: [id number] Admission: 11/29/16 Attend Phys: Ignacio Hayes MD Discharge: Date of : 38 Report #: [id number] PHYSICAL EXAMINATION: GENERAL: This is a chronically ill-appearing, pale and weak patient, in a bad mood with flat affect. SKIN: Unremarkable. SKELETAL: Well developed, well nourished. HEENT: Extraocular movements are full. No scleral icterus. Hearing and vision intact. Mucous membranes moist. Tongue and buccal mucosa benign. NECK: Neck veins are flat. No JVD or carotid bruits. CHEST: Shows diminished breath sounds at the bases. Right chest tube in place. HEART: Regular. ABDOMEN: Slightly tender, soft. EXTREMITIES: Show no edema. Pulses intact. NEUROLOGIC: Generalized weakness. LABORATORY DATA: Urinalysis from the time of admission was benign. The kappa-lambda light chains in the serum showed a very, very high lambda light chain reading, with a low kappa light chain reading. Hemoglobin is 11.1. The creatinine level was low at 0.7; it is now up to 1.5. Sodium was 133; it is down to 122. Sugars have been okay. ASSESSMENT AND PLAN: Elevated creatinine and decreased sodium. She has hyponatremia. Could certainly be contributed to the renal insufficiency and decreased free water clearance on that basis. This all is likely due to the Toradol she was getting accompanied by some likely intravascular volume depletion. I agree with the saline at this time. Sending urine for sodium, urine for creatinine, urine for osmolarity and serum for osmolarity; all of which are appropriate. Probably, we should check her thyroid as well, but the TSH actually was 2.6 earlier this admission, so maybe would not need to do that. The possibility of adrenal insufficiency must be entertained, but there is no hyperkalemia to suggest that or metabolic acidosis. I suspect IV fluids, check studies as above. It is possible that hyponatremia has also contributed to by the increased light chains in the serum and could be an element of pseudohyponatremia, but we will be able to discern that once we get the serum osmolarity, which has already been ordered and we will follow her along. <ELECTRONICALLY SIGNED> By: Amarjit Sandoval MD 12/16/16 1154 0948 1031 Amarjit Sandoval MD /nt
--- NOTE | ~2016-11-28 | EKG ---
[address] [address] ELECTROCARDIOGRAM REPORT Name: TIO NIÑO FAHAD Room #: 459-P ADM IN M.R.#: [id number] Admission: 11/29/16 Attend Phys: Ignacio Hayes MD Discharge: Date of : 38 Report #: [id number] THIS REPORT FOR: //name// [facility] Test Date: 2016-12-07 Test Time: 20:18:40 Pat Name: TIO NIÑO Department: Room: 459 Gender: F Insurance Claim Approver: zeke hinton rn : 1940 Requested By: Piper Shaffer Order Number: [id number] MD: Adrián Sawyer Measurements Intervals [place] Rate: 89 P: 43 [place]: 193 QRS: -45 QRSD: 109 T: 64 QT: 389 QTc: 474 Interpretive Statements Sinus rhythm Ventricular premature complex Incomplete left bundle branch block Consider anterior infarct Compared to ECG 09/26/2016 19:27:40 Ventricular premature complex(es) now present Left bundle-branch block now present Left-axis deviation no longer present Myocardial infarct finding still present Electronically Signed On 12-07-2016 22:23:56 CDT by Adrián Sawyer [email or web address] <ELECTRONICALLY SIGNED> By: Adrián Sawyer MD 12/07/16 2223 17 17 Adrián Sawyer MD /EPI
--- NOTE | ~2016-11-28 | CNG ---
[facility] [place] [address] CYTO-NONGYN REPORT PROCEDURE Name: MEL NIÑO FAHAD Room #: 459-P ADM IN M.R.#: [id number] Admission: 11/29/16 Date of : 38 Discharge: Report #: [id number] Path Case #: [id number] CYTOPATHOLOGY REPORT COLLECTION DATE: 12/04/2016 RECEIVED DATE: 12/05/2016 SUBMITTING PHYS: Dr. Sarkis Sorenson OTHER PHYS: Dr. Freddy Dorsey CLINICAL HISTORY: Right pneumothorax. SPECIMEN(S) RECEIVED: A.Pleural fluid, Left * * * * * * * * * * * * FINAL DIAGNOSIS: A. Left Pleural fluid: - No malignant epithelial cells identified. Rare mesothelial cells with numerous inflammatory cells identified. PATHOLOGIST: Elicia Gatica M.D. REPORT ELECTRONICALLY SIGNED BY: Elicia Gatica M.D. DATE/TIME: 12/08/2016 16:34 * * * * * * * * * * * * GROSS PATHOLOGY: A. Pleural fluid, Left: The specimen is submitted unfixed, labeled "Mel Niño September". Received by the Cytology Department is 10 mL of cloudy yellow fluid. One ThinPrep slide and a cell block were prepared. (clt 12.05.2016) PURCHASE REQUEST EDITOR(S): TRESSA Henriquez([facility]) INITIAL CPT CODE(S): A; 45618, 56269 Professional services performed by [facility] at [facility] [address], [place] [address] Technical services performed by [facility] at [address] [place] [address]., [address], [place] [address]. [facility] [address] [place] [address], [facility] [address] [place] [address] [facility] [address] [place] [address] CYTO-NONGYN REPORT PROCEDURE Name: MEL NIÑO SEPTEMBER Room #: 459-P ADM IN M.R.#: [id number] Admission: 11/29/16 Date of : 38 Discharge: Report #: [id number] Path Case #: [id number] PHONE: [phone] DIRECTOR: Jimy Fernandes M.D. * * * END OF REPORT * * *
--- NOTE | ~2016-11-28 | HC ---
[facility] [place] [address] CONSULTATION Name: TIO NIÑO SEPTEMBER Room #: 459-P ADM IN M.R.#: [id number] Admission: 11/29/16 Attend Phys: Ignacio Hayes MD Discharge: Date of : 38 Report #: [id number] THIS REPORT FOR: //name// CC: Chito Hayes MD [employer] DATE OF SERVICE: 11/29/2016 HISTORY OF PRESENT ILLNESS: The patient is a 76-year-old female who reports an episode of hematochezia with clots on Thursday. She has not had further episodes since then. She has a history of pleural effusion and underwent a thoracentesis apparently on Thursday. She was complaining of pain at the site as well as some shortness of breath and was diagnosed through the Emergency Room yesterday with a pneumothorax; therefore, underwent a chest tube placement by Dr. Avalos this morning. The patient has been on aspirin at home. She had an upper endoscopy by my partner, Dr. Rinaldi on 08/25/2016 for chest pain and was noted to have mild gastritis in the hiatal hernia at that time, but otherwise was negative. She is unsure when her last colonoscopy was, but it has been many years ago. She is unsure if she has had a history of polyps or diverticula at that time. There is no family history of colon cancer. She does complain of chronic abdominal pain or chest pain. She is complaining of increased pain at the chest tube site, but this has not changed since placement. She denies any fevers or chills. She has had a recent episode of epistaxis, but this was stopped as well. PAST MEDICAL HISTORY: Recent chest tube placement for pneumothorax resulting from recent thoracentesis. She has a history of recurrent pleural effusion, history of congestive heart failure, previous cholecystectomy, hysterectomy, cardiomyopathy, previous cardiac stent placement, history of multiple myeloma, amyloidosis, hypertension. MEDICATIONS ON ADMISSION: Aspirin 81 mg, Nitrostat p.r.n., Tums p.r.n., Tylenol p.r.n., Imodium p.r.n., senna, Toprol, Symbicort, Bentyl, simethicone. ALLERGIES: No known drug allergies. REVIEW OF SYSTEMS: As per HPI. FAMILY HISTORY: Negative for colon cancer or inflammatory bowel disease. SOCIAL HISTORY: She denies any tobacco or alcohol use recently. PHYSICAL EXAMINATION: VITAL SIGNS: Temperature is 98.3, pulse is 91, blood pressure 159/79, [place] [address] CONSULTATION Name: TIO NIÑO SEPTEMBER Room #: 459-P [facility] IN M.R.#: [id number] Admission: 11/29/16 Attend Phys: Ignacio Hayes MD Discharge: Date of : 38 Report #: [id number] respiratory rate is 22. GENERAL: She is alert and oriented x 3, in no acute distress. HEENT: Sclerae nonicteric. Oropharynx clear. NECK: Supple, without lymphadenopathy. CARDIOVASCULAR: Regular rate and rhythm. CHEST: With decreased breath sounds in the right. Chest tube is noted to be in place. ABDOMEN: Soft. She is mildly tender diffusely. Nondistended, normoactive bowel sounds. EXTREMITIES: No cyanosis, clubbing or edema. LABORATORY DATA: Sodium 133, potassium 3.6, chloride 100, bicarb 25, BUN 11, creatinine 1.2, AST is 22, total bili 0.6, alk phos 88, ALT 17, albumin 3.2. INR 1.1. WBC is 9.7, hemoglobin 12.2, platelet count is 269. Her hemoglobin was 13.8 on 09/26/2016. ASSESSMENT AND PLAN: Hematochezia. The patient has had no further bleeding since Thursday apparently. I had a long discussion with the patient regarding her symptoms. I suspect this may be a diverticular bleed. I would recommend proceeding with a colonoscopy for further evaluation. However, with her chest tube placement today, would prefer to proceed with this in the near future when she is somewhat more stable. She agrees. The plan is to continue to monitor hemoglobin. If there is a significant drop or further bleeding, may need to consider colonoscopy sooner. We will continue to monitor closely. Thank you for allowing me to participate in her care. <ELECTRONICALLY SIGNED> By: Nimesh Walton MD 11/29/16 1816 1209 1331 Nimesh Walton MD /nt
--- NOTE | ~2016-11-28 | S ---
[facility] [place] [address] SURGICAL PATH RPT PROCEDURE Name: MEL NIÑO SEPTEMBER Room #: 459-P ADM IN M.R.#: [id number] Admission: 11/29/16 Date of : 38 Discharge: Report #: [id number] Path Case #: [id number] PATHOLOGY REPORT COLLECTION DATE: 12/08/2016 RECEIVED DATE: 12/08/2016 SUBMITTING PHYS: Dr. Sakina Cool M.D. OTHER PHYS: Dr. Chito Mann SPECIMEN(S) RECEIVED: A.Abdominal fat pad * * * * * * * * * * * * FINAL DIAGNOSIS: Mature adipose tissue, abdominal fat pad amyloid stain, biopsy: - POSITIVE FOR AMYLOID (please see comment). (IUV:pit; 12/10/2016) COMMENT: Well controlled Congo red special stain is performed on block A1- apple-green birefringence identified. The case is co-reviewed with Dr. Kristen Álvarez (board certified hematopathologist) who concurs with my diagnosis. Findings are discussed with Dr. Stacy Mann at 4:20 pm on 12/10/16. (IUV:pit; 12/10/2016) PATHOLOGIST: Elicia Gatica M.D. REPORT ELECTRONICALLY SIGNED BY: Elicia Gatica M.D. DATE/TIME: 12/10/2016 16:28 * * * * * * * * * * * * GROSS PATHOLOGY: The specimen is received in formalin, labeled "Mel Niño, abdominal fat pad amyloid stain" are three irregular, herrera-yellow, lobulated portions of adipose tissue measuring 2.1 x 2.0 x 0.3 cm in aggregate. The cut surface is homogeneously herrera-yellow and lobulated. No distinct abnormalities are noted grossly. The specimen is entirely submitted in cassette A1. ([facility]; 12/09/2016) CLINICAL HISTORY: Bilateral pneumothorax [address] [address] SURGICAL PATH RPT PROCEDURE Name: MEL NIÑO SEPTEMBER Room #: 459-P ADM IN M.R.#: [id number] Admission: 11/29/16 Date of : 38 Discharge: Report #: [id number] Path Case #: [id number] INITIAL CPT CODE(S): A; 93931, 31100, 63922 Professional services performed by [facility] at [address] , [place] [address] Technical services performed by [facility] at [address] [place] [address], [address] [address]. [facility] [address] [place] [address] PHONE: [phone] DIRECTOR: Jimy Fernandes M.D. * * * END OF REPORT * * *
--- NOTE | ~2016-11-28 | 2DMMODE ---
[place] [address] [employer] [employer] [place] [address] 2 D/M-MODE ECHOCARDIOGRAM Name: [facility]IO NI[facility]O [facility] Room #: 459-P ADM IN M.R.#: [id number] Admission: 11/29/16 Attend Phys: Nando Shah Discharge: Date of : 36 Date of Service: 12/08/16 0956 Report #: [id number] THIS REPORT FOR: //name// APPROVED REPORT Study performed: 12/08/2016 07:55:28 EXAM: Comprehensive 2D, Doppler, and color-flow Echocardiogram Patient Location: Bedside Room #: 459 Status: routine BSA: 1.62 BP: 122/57 mmHg Other Information Study Quality: Technically Difficult Adequate Technically limited study due to inability to position patient, bilateral chest tubes. Indications Congestive Heart Failure CAD Cardiomyopathy Hypertension/HDD 2D Dimensions RVDd: 26.11 mm LVEF(%): 48.93 (>50%) IVSd: 18.66 (7-11mm) LVOT Diam: 21.11 (18-24mm) LVDd: 32.05 mm PWd: 20.26 (7-11mm) LVDs: 24.39 (25-40mm) Aortic Root: 25.40 mm IVC: 15.00 mm Barron's LVEF: 48.93 % Volumes Left Atrial Volume (Systole) Single Plane 4CH: 51.63 mL Single Plane 2CH: 58.14 mL LA ESV Index: 38.00 mL/m2 Aortic Valve AoV Peak Natanael.: 1.54 m/s AO Peak Gr.: 9.49 mmHg LVOT Max P.36 mmHg LVOT Max V: 0.92 m/s LIANNA Vmax: 2.08 cm2 [facility] [address] [place] [address] 2 D/M-MODE ECHOCARDIOGRAM Name: TIO NIÑO FAHAD Room #: 459-P [facility] IN M.R.#: [id number] Admission: 11/29/16 Attend Phys: Nando Shah Discharge: Date of : 38 Date of Service: 12/08/16 0956 Report #: [id number] Mitral Valve E/A Ratio: 0.9 MV Decel. Time: 212.46 ms MV E Max Natanael.: 0.94 m/s MV A Natanael.: 1.06 m/s MV PHT: 61.61 ms IVRT: 114.19 ms Pulmonary Vein P Vein S: 0.47 m/s P Vein A: 0.32 m/s P Vein D: 0.39 m/s P Vein A Dur.: 117.6 msec P Vein S/D Ratio: 1.21 Tricuspid Valve RAP Estimate: 5.00 mmHg Left Ventricle The left ventricle is normal size. Severe concentric left ventricular hypertrophy. The overall left ventricular systolic function appears normal. LVEF is 55%. Mild diastolic dysfunction is present (impaired relaxation pattern). Right Ventricle The right ventricle is normal size. The right ventricular systolic function is normal. Atria Left atrium is dilated. The right atrium size is normal. Aortic Valve The aortic valve is normal in structure. Trace aortic regurgitation. There is no aortic valvular stenosis. Mitral Valve The mitral valve is normal in structure. Mild mitral regurgitation. No evidence of mitral valve stenosis. Tricuspid Valve The tricuspid valve is normal in structure. Trace tricuspid regurgitation. Unable to assess PA pressure. Pulmonic Valve Pulmonic valve is not well visualized. [employer] [facility] [address] [employer] [place] [address] 2 D/M-MODE ECHOCARDIOGRAM Name: TIO NIÑO SEPTEMBER Room #: 459-P ADM IN M.R.#: [id number] Admission: 11/29/16 Attend Phys: Nando Shah Discharge: Date of : 36 Date of Service: 12/08/16 0956 Report #: [id number] The aortic root is normal in size. Unable to visualize the ascending aorta. IVC is normal in size and collapses >50% with inspiration. <Conclusion> The left ventricle is normal size. LVEF is 55%. Left atrium is dilated. The aortic valve is normal in structure. Trace aortic regurgitation. The mitral valve is normal in structure. Mild mitral regurgitation. The tricuspid valve is normal in structure. Trace tricuspid regurgitation. Unable to assess PA pressure. Unable to visualize the ascending aorta. <ELECTRONICALLY SIGNED> By: Dheeraj Aguirre MD 12/08/16955 5 5 Dheeraj Aguirre MD /INF
--- NOTE | ~2016-11-28 | CNG ---
[facility] [place] [address] CYTO-NONGYN REPORT PROCEDURE Name: MEL NIÑO LOLI Room #: 459-P ADM IN M.R.#: [id number] Admission: 11/29/16 Date of : 36 Discharge: Report #: [id number] Path Case #: [id number] CYTOPATHOLOGY REPORT COLLECTION DATE: 12/05/2016 RECEIVED DATE: 12/05/2016 SUBMITTING PHYS: Dr. Freddy Pierre OTHER PHYS: CLINICAL HISTORY: Left pneumothorax. SPECIMEN(S) RECEIVED: A.Bronchoalveolar lavage, RLL * * * * * * * * * * * * FINAL DIAGNOSIS: A. Lung, RLL, Bronchoalveolar lavage: - No malignant cells identified. Few scattered groups of reactive bronchial epithelial cells, squamous cells and scattered alveolar macrophages along with inflammatory cells. PATHOLOGIST: Elicia Gatica M.D. REPORT ELECTRONICALLY SIGNED BY: Elicia Gatica M.D. DATE/TIME: 12/08/2016 16:27 * * * * * * * * * * * * GROSS PATHOLOGY: A. Bronchoalveolar lavage, RLL: The specimen is submitted unfixed, labeled "Mel Niño Loli". Received by the Cytology Department is 5 mL of cloudy fluid. One ThinPrep slide was prepared. (clt 12.05.2016) DERMATOLOGY TEACHER(S): TRESSA Henriquez([facility]) INITIAL CPT CODE(S): A; 63474 Professional services performed by [facility] at [facility] [address], [place] [address] Technical services performed by [facility] at [address] [place] [address]., [address], [place] [address]. CC: Dr. Ayla Sarmiento [facility] [address] [place] [address], [facility] [address] [place] [address] CYTO-NONGYN REPORT PROCEDURE Name: MEL NIÑO SEPTEMBER Room #: 459-P ADM IN M.R.#: [id number] Admission: 11/29/16 Date of : 36 Discharge: Report #: [id number] Path Case #: [id number] PHONE: [phone] DIRECTOR: Jimy Fernandes M.D. * * * END OF REPORT * * *
--- NOTE | ~2016-11-28 | S ---
[facility] [place] [address] SURGICAL PATH RPT PROCEDURE Name: MEL NIÑO SEPTEMBER Room #: 459-P ADM IN M.R.#: [id number] Admission: 11/29/16 Date of : 36 Discharge: Report #: [id number] Path Case #: [id number] PATHOLOGY REPORT COLLECTION DATE: 12/02/2016 RECEIVED DATE: 12/02/2016 SUBMITTING PHYS: Dr. Freddy Pierre OTHER PHYS: Dr. Chito Dorsey SPECIMEN(S) RECEIVED: A.Peripheral smear * * * * * * * * * * * * FINAL DIAGNOSIS: Peripheral smear: - Normocytic normochromic anemia, mild, with a normal RDW. COMMENT: The peripheral smear shows a mild normocytic normochromic anemia. The etiology of the anemia is not readily apparent from review of red blood cell morphology. There is no evidence of a hemolysis. The findings could be indicative of an anemia of chronic disease. Would recommend serum iron studies. (JPM:jermaine; 12/03/2016) PATHOLOGIST: Javed Donohue M.D. REPORT ELECTRONICALLY SIGNED BY: Javed Donohue M.D. DATE/TIME: 12/03/2016 12:45 * * * * * * * * * * * * MICROSCOPIC DESCRIPTION: Laboratory Data: The WBC count is 7.9 K/CMM, and the automated WBC differential reveals 68.8% neutrophils, 18.7% lymphs, 8.1% monos, 3.6% eos, and 0.8% baso. The RBC count is 3.91 M/CMM, hemoglobin 12.7 G/DL, hematocrit 37.0%, MCV 94.6 FL, MCH 32.6 PG, MCHC 34.4 G/DL, and the RDW is 13.3%. The platelet count is 291 K/CMM. Peripheral Smear: The peripheral smear is reviewed. The WBC count is normal. The WBC differential reveals a predominance of segmented neutrophils, with smaller populations of lymphocytes and monocytes and several eosinophils noted. Neutrophils do not show dysplastic changes. There is no significant neutrophilic left shift. There are no circulating blasts or immature cells. There is no leukoerythroblastic reaction. The lymphocyte population consists predominantly of small lymphocytes. An occasional reactive lymphocyte is noted. Red blood cells predominantly appear normochromic and normocytic. Red blood cells show no significant [address] [address] SURGICAL PATH RPT PROCEDURE Name: MEL NIÑO SEPTEMBER Room #: 459-P ADM IN M.R.#: [id number] Admission: 11/29/16 Date of : 36 Discharge: Report #: [id number] Path Case #: [id number] anisopoikilocytosis. Platelets appear normal in number and morphology. An occasional large platelet is noted. GROSS PATHOLOGY: Received are two Gruber stained peripheral blood smears, labeled, Mel Niño. CLINICAL HISTORY: None Provided INITIAL CPT CODE(S): A; NC Professional services performed by [facility] at [facility], [address] [place] [address], [place] [address]. Technical services performed by [facility] at [address] [place] [address], [address], [place] [address]. [facility] [address] [place] [address] PHONE: [phone] DIRECTOR: Jimy Fernandes M.D. * * * END OF REPORT * * *
--- NOTE | ~2016-11-28 | HC ---
[facility] [place] [address] CONSULTATION Name: TIO NIÑO SEPTEMBER Room #: 459-P ADM IN M.R.#: [id number] Admission: 11/29/16 Attend Phys: Ignacio Hayes MD Discharge: Date of : 38 Report #: [id number] THIS REPORT FOR: //name// CC: Chito Hayes Assistant Refinery Operator REFERRING PHYSICIAN: Dr. Hayes. REASON FOR REFERRAL: Pleural effusion, pneumothorax. HISTORY OF PRESENT ILLNESS: The patient is a 76-year-old white female who is well known to this physician who presents to the emergency room with an apparent epistaxis, chest pain and dyspnea. The patient also notes hematochezia 2 days prior to presentation. Chest x-ray revealed about 20% pneumothorax on the right. A pulmonary consultation was requested. The patient has been followed longitudinally regarding recurrent right-sided pleural effusion. This has been noted in the past going back to 2012. It was felt to be transudate. Workup was nondiagnostic. 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 She had been seen by oncologist in the past, but has not followed recently as that oncologist retired. Over the last few months, the patient had complained of generally not feeling well. I had recommended hospitalization on 2 occasions. On the last office visit, she did go to [facility] for evaluation. The patient states that she underwent cardiac evaluation along with cardiac catheterization. This was unremarkable. She also underwent thoracentesis prior to discharge. Chest x-ray performed in the ER earlier today shows small, about 20%, right-sided pneumothorax. She also notes hematochezia or bright red blood per rectum few days ago. Otherwise, she feels about the same. Still feels weak without much energy. Otherwise, no febrile illness. She has chest pain associated with thoracentesis performed recently. 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 PAST SURGICAL HISTORY: Cholecystectomy, vaginal hysterectomy, foot surgeries on [facility] [address] [place] [address] CONSULTATION Name: TIO NIÑO SEPTEMBER Room #: 459-P ADM IN M.R.#: [id number] Admission: 11/29/16 Attend Phys: Ignacio Hayes MD Discharge: Date of : 38 Report #: [id number] the left. ALLERGIES: None to medications. HOME MEDICATIONS: List reviewed and is in the MAR. Medications also include Symbicort 160 mcg 2 puffs twice a day. FAMILY HISTORY: Noncontributory. SOCIAL HISTORY: The patient has smoked, but quit many years ago. She lives independently by herself. She has family including 2 sons. REVIEW OF SYSTEMS: As mentioned above. It is notable for progressive weakness over the past 1-2 months. No prior history of hematemesis, hematochezia, melena until recently where she had complained of bright red blood per rectum a few days ago. This occurred after she was discharged from [facility]. PHYSICAL EXAMINATION: GENERAL: She is awake and alert, which appears to be weak. VITAL SIGNS: Temperature 97.7 degrees Fahrenheit, pulse is 81, respiratory rate is 20, blood pressure 149/73 mmHg, and saturation 100%. HEENT: Normocephalic, atraumatic. NECK: Supple, without any lymphadenopathy or thyromegaly. CHEST: Breath sounds are fair due to poor effort, otherwise clear without any rales or wheezes. CARDIOVASCULAR: Normal S1, S2. There are no murmurs or gallop. There is no JVD. There is no carotid bruit. Pulses are 2+/4+ bilaterally. ABDOMEN: Soft, nontender, no organomegaly or masses felt. GENITOURINARY: Deferred. RECTAL: Deferred. EXTREMITIES: There is no edema, cyanosis or clubbing. DIAGNOSTIC DATA: Chest x-ray as mentioned above showing small right-sided pleural effusion, approximately 20% right apical pneumothorax. A chest tube has been placed. LABORATORY DATA: BNP is 3200. TSH is 2.6. Sodium 133, potassium 3.6, chloride 100, CO2 is 25, BUN 11, creatinine is 1.2. Liver function profile is grossly unremarkable. WBC 9700, hemoglobin is 12.2, platelets are normal. Albumin is 3.2. IMPRESSION: 1. Chest pain, dyspnea in this 76-year-old white female due to pneumothorax. It is likely iatrogenic from recent thoracentesis. Agree with chest tube placement. [facility] [address] [facility] [place] [address] CONSULTATION Name: TIO NIÑO SEPTEMBER Room #: 459-P ADM IN M.R.#: [id number] Admission: 11/29/16 Attend Phys: Ignacio Hayes MD Discharge: Date of : 38 Report #: [id number] 2. Hematochezia. This may explain generalized decline in the health over the last couple of months. She will need GI workup. 3. Multiple myeloma, amyloidosis. Question whether she may have gastrointestinal involvement. 4. Recurrent right-sided pleural effusion. Prior thoracentesis was nondiagnostic. She has had at least 3 thoracenteses, most recent one being April 2016. It was felt that perhaps this may be related to underlying amyloidosis. 5. Cardiomyopathy, ischemic. 6. Coronary artery disease, recent cardiac catheterization was unremarkable. 7. Hypertension. RECOMMENDATIONS: We will continue chest tube to suctioning. Follow up chest x-ray. If stable, a chest tube will be placed to water seal with a followup chest x-ray in 1-2 hours. We will await GI workup regarding hematochezia. DVT and GI prophylaxis will be addressed. Thank you for this consultation. <ELECTRONICALLY SIGNED> By: Sarkis Sorenson MD 12/02/16 1518 1645 24 Sarkis Sorenson MD /nt
--- NOTE | ~2016-11-28 | S ---
[facility] [address] [address] SURGICAL PATH RPT PROCEDURE Name: MEL NIÑO SEPTEMBER Room #: 459-P DIS IN M.R.#: [id number] Admission: 11/29/16 Date of : 36 Discharge: 12/17/16 Report #: [id number] Path Case #: [id number] PATHOLOGY REPORT COLLECTION DATE: 12/12/2016 RECEIVED DATE: 12/12/2016 SUBMITTING PHYS: Dr. Sarkis Sorenson OTHER PHYS: Dr. Freddy Mann ADDENDUM REPORT (Order Date: 12/18/2016 14:25) ADDENDUM COMMENT: A properly controlled special stain is performed. Congo red (block A1): Focal, very weak possible birefringence Given the patient's history of systemic amyloidosis, this is suspicious for pulmonary involvement. Clinical and radiographic correlation is recommended. The final diagnosis remains unchanged. (CLW:nory; 12/18/2016) Professional services performed by [facility] at [facility] [address] [place] [address] [facility] at [address] [place] [address], [address] [place] [address]. ELECTRONICALLY SIGNED BY: Marilynn La M.D. DATE/TIME:12/18/2016 16:15 SPECIMEN(S) RECEIVED: A.Lung bx * * * * * * * * * * * * FINAL DIAGNOSIS: "Lung BX", image-guided needle biopsy: - Lung tissue with loosely organizing pneumonia, patchy chronic inflammation and focally thickened blood vessels (see comment). (CLW:nory; 12/16/2016) COMMENT: No epithelial malignancy is identified. Properly controlled immunohistochemical and special stains are performed. Block A1 AE1/AE3 - No evidence of carcinoma Congo red - pending Clinical and radiographic correlation is recommended. The case is [address] [address] SURGICAL PATH RPT PROCEDURE Name: MEL NIÑO Room #: 459-P DIS IN M.R.#: [id number] Admission: 11/29/16 Date of : 38 Discharge: 12/17/16 Report #: [id number] Path Case #: [id number] co-reviewed [address] Dr. Elicia Gatica. (CLW:nory; 12/16/2016) PATHOLOGIST: Marilynn La M.D. REPORT ELECTRONICALLY SIGNED BY: Marilynn La M.D. DATE/TIME: 12/16/2016 15:36 * * * * * * * * * * * * GROSS PATHOLOGY: Received in formalin labeled "Mel Niño, lung biopsy" is a specimen consisting of multiple cylindrical cores of herrera-white soft tissue which measure 0.1 cm in diameter and range from 0.1-1.1 cm in length. The cores measure in aggregate 1.1 x 0.3 x 0.1 cm. The specimen is submitted entirely in cassette A1. ([facility]; 12/13/2016) CLINICAL HISTORY: Left pneumothorax INITIAL CPT CODE(S): A; 04562, 98634, 05466 Professional services performed by [facility] at [facility] [address] [place] [address] Technical services performed by [facility] at [address] [place] [address], [address], [place] [address]. [facility] [address] [place] [address] PHONE: [phone] DIRECTOR: Jimy Fernandes M.D. * * * END OF REPORT * * *
[2016-11-28 21:35] VITALS: BP 151/86
[2016-11-28] MEDS ORDERED: BENTYL 10 MG CA10 M1 PO (21:45)
[2016-11-28] MEDS ORDERED: SYMBICORT160 MCG/4. INH (21:45)
[2016-11-28 22:27] LABS: URINE BILIRUBIN NEGATIVE (Negative); URINE BLOOD 1+ (Negative); URINE COLOR YELLOW; URINE GLUCOSE-RANDOM* NEGATIVE (Negative); URINE KETONES NEGATIVE (Negative); URINE LEUKOCYTES-REFLEX TRACE (Negative); URINE PROTEIN (DIPSTICK) NEGATIVE (Negative); URINE SPECIFIC GRAVITY 1.015 (1.003-1.035); URINE UROBILINOGEN 0.2 E.U./dl (0.2-1.0)
[2016-11-28 22:29] LABS: ABSOLUTE NEUTROPHILS 7.5 thou/uL (1.4-8.2); BASOPHILS 0.7 % (0.0-2.0); EOSINOPHILS 1.3 % (0.0-3.0); HEMOGLOBIN 12.2 gm/dL (12.0-15.0); LYMPHOCYTES 11.3 % (24.0-44.0); MCH 33.1 pg (26.0-34.0); MCHC 34.8 g/dL (28.0-37.0); MCV 95.3 fL (80.0-100.0); MONOCYTES 9.4 % (1.0-8.0); PLATELET COUNT 269 thou/uL (150-400); POLYS 77.3 % (36.0-66.0); RBC 3.67 mil/uL (4.20-5.00); RDW 13.4 % (10.5-14.5); WBC 9.7 thou/uL (4.0-11.0)
[2016-11-28 22:32] LABS: MANUAL DIFF NO
[2016-11-28 22:34] LABS: CALCIUM 9.2 mg/dL (8.5-10.1); CREATININE 1.2 mg/dL (0.6-1.0); POTASSIUM 3.6 mmol/L (3.5-5.1)
[2016-11-28 22:37] LABS: CASTS None Seen /LPF (None Seen); CRYSTALS None Seen /LPF (None Seen); SQUAMOUS 0-3 Few /LPF (0-3); URINE RBC 0-2 Rare /HPF (0-2); URINE WBC-REFLEX 0-5 Rare /HPF (0-5)
[2016-11-28 22:40] LABS: ALBUMIN 3.2 g/dL (3.4-5.0); DIRECT BILIRUBIN 0.2 mg/dL (<0.1-0.3); TOTAL BILIRUBIN 0.6 mg/dL (<0.1-1.0); TOTAL PROTEIN 6.1 g/dL (6.4-8.2)
[2016-11-29 05:42] VITALS: BP 158/69
[2016-11-29 07:10] LABS: APTT 27.8 Seconds (24.5-32.8); INR 1.1; PROTIME 10.9 Seconds (9.3-11.4)
[2016-11-29 07:29] VITALS: BP 159/79
[2016-11-29 08:12] VITALS: BP 159/79
[2016-11-29 12:05] VITALS: BP 149/73
[2016-11-29 16:03] VITALS: BP 167/73
[2016-11-29 19:20] VITALS: BP 160/77
[2016-11-30 00:29] VITALS: BP 140/50
[2016-11-30 04:13] VITALS: BP 147/67
[2016-11-30 05:22] LABS: ABSOLUTE NEUTROPHILS 6.1 thou/uL (1.4-8.2); BASOPHILS 0.7 % (0.0-2.0); EOSINOPHILS 3.6 % (0.0-3.0); HEMOGLOBIN 12.4 gm/dL (12.0-15.0); LYMPHOCYTES 14.9 % (24.0-44.0); MCH 32.7 pg (26.0-34.0); MCHC 34.6 g/dL (28.0-37.0); MCV 94.6 fL (80.0-100.0); MONOCYTES 8.4 % (1.0-8.0); PLATELET COUNT 269 thou/uL (150-400); POLYS 72.4 % (36.0-66.0); RDW 13.4 % (10.5-14.5); WBC 8.5 thou/uL (4.0-11.0)
[2016-11-30 05:26] LABS: MANUAL DIFF NO
[2016-11-30 05:29] LABS: CALCIUM 8.6 mg/dL (8.5-10.1); CREATININE 0.8 mg/dL (0.6-1.0); POTASSIUM 3.2 mmol/L (3.5-5.1)
[2016-11-30 08:00] VITALS: BP 128/63
[2016-11-30 12:00] VITALS: BP 130/65
[2016-11-30 16:00] VITALS: BP 136/68
[2016-11-30 18:44] VITALS: BP 122/69
[2016-12-01 04:53] VITALS: BP 119/60
[2016-12-01 06:11] LABS: HEMATOCRIT 36.1 % (37.0-47.0); HEMOGLOBIN 12.4 gm/dL (12.0-15.0); MCH 32.3 pg (26.0-34.0); MCHC 34.4 g/dL (28.0-37.0); MCV 93.9 fL (80.0-100.0); RBC 3.85 mil/uL (4.20-5.00); RDW 13.5 % (10.5-14.5); WBC 8.4 thou/uL (4.0-11.0)
[2016-12-01 06:26] LABS: CALCIUM 8.4 mg/dL (8.5-10.1); CREATININE 0.7 mg/dL (0.6-1.0); POTASSIUM 3.3 mmol/L (3.5-5.1)
[2016-12-01 07:30] VITALS: BP 131/63
[2016-12-01 11:13] VITALS: BP 124/68
[2016-12-01 15:30] VITALS: BP 128/61
[2016-12-01 19:38] VITALS: BP 117/62
[2016-12-02 04:02] VITALS: BP 112/61
[2016-12-02 07:32] LABS: HEMATOCRIT 36.1 % (37.0-47.0); HEMOGLOBIN 12.6 gm/dL (12.0-15.0); MCH 32.6 pg (26.0-34.0); MCV 93.3 fL (80.0-100.0); RBC 3.87 mil/uL (4.20-5.00); RDW 13.2 % (10.5-14.5); WBC 7.7 thou/uL (4.0-11.0)
[2016-12-02 07:39] LABS: CREATININE 0.8 mg/dL (0.6-1.0); POTASSIUM 3.5 mmol/L (3.5-5.1)
[2016-12-02 07:47] VITALS: BP 117/52
[2016-12-02 11:42] VITALS: BP 108/42
[2016-12-02 15:54] VITALS: BP 131/59
[2016-12-02 19:23] VITALS: BP 120/51
[2016-12-03 04:18] VITALS: BP 113/54
[2016-12-03 05:59] LABS: ABSOLUTE NEUTROPHILS 5.4 thou/uL (1.4-8.2); EOSINOPHILS 3.8 % (0.0-3.0); HEMATOCRIT 39.4 % (37.0-47.0); HEMOGLOBIN 13.6 gm/dL (12.0-15.0); LYMPHOCYTES 27.5 % (24.0-44.0); MCH 32.3 pg (26.0-34.0); MCHC 34.5 g/dL (28.0-37.0); MCV 93.6 fL (80.0-100.0); MONOCYTES 9.8 % (1.0-8.0); PLATELET COUNT 321 thou/uL (150-400); POLYS 57.9 % (36.0-66.0); RBC 4.21 mil/uL (4.20-5.00); WBC 9.3 thou/uL (4.0-11.0)
[2016-12-03 06:08] LABS: CREATININE 0.8 mg/dL (0.6-1.0); MANUAL DIFF NO; POTASSIUM 3.4 mmol/L (3.5-5.1)
[2016-12-03 07:32] VITALS: BP 115/44
[2016-12-03 11:28] VITALS: BP 118/45
[2016-12-03 15:24] VITALS: BP 120/50
[2016-12-03 19:17] VITALS: BP 129/57
[2016-12-04 05:46] VITALS: BP 116/55
[2016-12-04 05:59] LABS: ABSOLUTE NEUTROPHILS 6.7 thou/uL (1.4-8.2); BASOPHILS 0.7 % (0.0-2.0); EOSINOPHILS 3.1 % (0.0-3.0); HEMATOCRIT 38.7 % (37.0-47.0); HEMOGLOBIN 13.4 gm/dL (12.0-15.0); LYMPHOCYTES 19.6 % (24.0-44.0); MCH 32.3 pg (26.0-34.0); MCHC 34.6 g/dL (28.0-37.0); MCV 93.3 fL (80.0-100.0); MONOCYTES 7.7 % (1.0-8.0); PLATELET COUNT 301 thou/uL (150-400); POLYS 68.9 % (36.0-66.0); RBC 4.15 mil/uL (4.20-5.00); RDW 13.1 % (10.5-14.5); WBC 9.7 thou/uL (4.0-11.0)
[2016-12-04 06:00] LABS: MANUAL DIFF NO
[2016-12-04 06:21] LABS: CALCIUM 9.1 mg/dL (8.5-10.1); CREATININE 0.7 mg/dL (0.6-1.0); POTASSIUM 3.4 mmol/L (3.5-5.1)
[2016-12-04 08:05] VITALS: BP 107/49
[2016-12-04 12:16] VITALS: BP 107/49
[2016-12-04 14:10] VITALS: BP 136/67
[2016-12-04 14:34] LABS: CLARITY SLIGHT CLOUDY; COLOR YELLOW; TOTAL VOLUME 21 mL
[2016-12-04 14:41] LABS: BF NUCLEATED CELLS 1964; BF RBC 2164
[2016-12-04 14:44] LABS: MANUAL DIFF YES
[2016-12-04 15:33] LABS: BF MACROPHAGE 3; BF NEUTROPHILS 81
[2016-12-04 17:06] VITALS: BP 139/66
[2016-12-04 20:00] VITALS: BP 155/76
[2016-12-05] VITALS (8 sets, daily range): BP systolic 90–144; BP diastolic 46–81
[2016-12-05 06:07] LABS: HEMATOCRIT 37.8 % (37.0-47.0); MCH 32.4 pg (26.0-34.0); MCHC 34.5 g/dL (28.0-37.0); MCV 93.8 fL (80.0-100.0); RBC 4.03 mil/uL (4.20-5.00); RDW 12.9 % (10.5-14.5); WBC 9.4 thou/uL (4.0-11.0)
[2016-12-05 06:22] LABS: CALCIUM 8.9 mg/dL (8.5-10.1); CREATININE 0.8 mg/dL (0.6-1.0); POTASSIUM 3.4 mmol/L (3.5-5.1)
[2016-12-05 11:09] LABS: BODY FLUID ALBUMIN 1.3 g/dL (())
[2016-12-05 12:11] LABS: BODY FLUID AMYLASE 20 U/L (()); BODY FLUID GLUCOSE 94 mg/dL (()); BODY FLUID LDH 207 IU/L (())
[2016-12-06] VITALS (7 sets, daily range): BP systolic 103–125; BP diastolic 47–68
[2016-12-06 04:54] LABS: HEMATOCRIT 36.4 % (37.0-47.0); HEMOGLOBIN 12.5 gm/dL (12.0-15.0); MCH 32.3 pg (26.0-34.0); MCHC 34.4 g/dL (28.0-37.0); MCV 93.9 fL (80.0-100.0); RBC 3.88 mil/uL (4.20-5.00); RDW 12.9 % (10.5-14.5); WBC 10.8 thou/uL (4.0-11.0)
[2016-12-06 04:57] LABS: CREATININE 0.8 mg/dL (0.6-1.0); POTASSIUM 3.9 mmol/L (3.5-5.1)
[2016-12-06 08:08] LABS: IgA 84 mg/dL (64-422); IgG 485 mg/dL (700-1600); IgM 77 mg/dL (26-217)
[2016-12-07 03:32] VITALS: BP 122/56
[2016-12-07 05:16] LABS: ABSOLUTE NEUTROPHILS 6.9 thou/uL (1.4-8.2); BASOPHILS 0.6 % (0.0-2.0); EOSINOPHILS 3.1 % (0.0-3.0); HEMATOCRIT 33.3 % (37.0-47.0); HEMOGLOBIN 11.7 gm/dL (12.0-15.0); LYMPHOCYTES 11.6 % (24.0-44.0); MCH 32.6 pg (26.0-34.0); MCHC 35.1 g/dL (28.0-37.0); MCV 92.9 fL (80.0-100.0); MONOCYTES 8.6 % (1.0-8.0); PLATELET COUNT 282 thou/uL (150-400); POLYS 76.1 % (36.0-66.0); RBC 3.59 mil/uL (4.20-5.00); RDW 12.8 % (10.5-14.5)
[2016-12-07 05:17] LABS: MANUAL DIFF NO
[2016-12-07 05:21] LABS: CALCIUM 8.3 mg/dL (8.5-10.1); CREATININE 0.7 mg/dL (0.6-1.0); POTASSIUM 3.4 mmol/L (3.5-5.1)
[2016-12-07 09:27] VITALS: BP 127/82
[2016-12-07 09:31] VITALS: BP 100/50
[2016-12-07 09:32] VITALS: BP 101/52
[2016-12-07 16:40] VITALS: BP 130/82
[2016-12-07 20:02] VITALS: BP 153/61
[2016-12-08 02:32] LABS: ABSOLUTE NEUTROPHILS 7.3 thou/uL (1.4-8.2); BASOPHILS 0.5 % (0.0-2.0); EOSINOPHILS 3.3 % (0.0-3.0); HEMATOCRIT 33.2 % (37.0-47.0); HEMOGLOBIN 11.5 gm/dL (12.0-15.0); LYMPHOCYTES 10.7 % (24.0-44.0); MCH 32.2 pg (26.0-34.0); MCHC 34.6 g/dL (28.0-37.0); MCV 93.1 fL (80.0-100.0); MONOCYTES 10.1 % (1.0-8.0); PLATELET COUNT 278 thou/uL (150-400); POLYS 75.4 % (36.0-66.0); RBC 3.57 mil/uL (4.20-5.00); RDW 12.7 % (10.5-14.5); WBC 9.7 thou/uL (4.0-11.0)
[2016-12-08 02:33] LABS: MANUAL DIFF NO
[2016-12-08 02:41] LABS: CALCIUM 8.3 mg/dL (8.5-10.1); CREATININE 0.8 mg/dL (0.6-1.0); POTASSIUM 3.5 mmol/L (3.5-5.1)
[2016-12-08 03:54] VITALS: BP 122/59
[2016-12-08 07:36] VITALS: BP 122/57
[2016-12-08 10:25] VITALS: BP 130/60
[2016-12-08 15:09] LABS: KAPPA FREE LIGHT CHAINS 9.2 mg/L (3.3-19.4); KAPPA/LAMBDA RATIO 0.01 (0.26-1.65); LAMBDA FREE LIGHT CHAINS 729.2 mg/L (5.7-26.3)
[2016-12-08 15:30] VITALS: BP 135/72
[2016-12-08 17:11] LABS: A/G RATIO 1.3 (0.7-1.7); ALBUMIN 2.9 g/dL (2.9-4.4); ALPHA 1 0.2 g/dL (0.0-0.4); ALPHA 2 0.7 g/dL (0.4-1.0); BETA 0.8 g/dL (0.7-1.3); GAMMA 0.5 g/dL (0.4-1.8); M-SPIKE Not Observed g/dL (Not Observed)
[2016-12-08 19:54] VITALS: BP 103/83
[2016-12-09 06:00] VITALS: BP 133/68
[2016-12-09 09:14] LABS: UEP MONOCLONAL 44.2 % (Not Observed); URINE PROTEIN (MG/DL) 19.1 mg/dL (Not Estab.)
[2016-12-09 10:12] VITALS: BP 124/55
[2016-12-09 14:36] VITALS: BP 111/46
[2016-12-09 16:37] VITALS: BP 135/73
[2016-12-09 20:00] VITALS: BP 100/48
[2016-12-10 00:29] VITALS: BP 99/49
[2016-12-10 04:41] VITALS: BP 104/42
[2016-12-10 06:06] LABS: HEMATOCRIT 33.8 % (37.0-47.0); HEMOGLOBIN 11.7 gm/dL (12.0-15.0); MCH 32.1 pg (26.0-34.0); MCHC 34.6 g/dL (28.0-37.0); RBC 3.64 mil/uL (4.20-5.00); WBC 16.8 thou/uL (4.0-11.0)
[2016-12-10 06:22] LABS: CALCIUM 8.2 mg/dL (8.5-10.1); CREATININE 1.2 mg/dL (0.6-1.0)
[2016-12-10 07:43] VITALS: BP 119/38
[2016-12-10 11:34] VITALS: BP 101/46
[2016-12-10 16:04] VITALS: BP 117/41
[2016-12-11 03:09] VITALS: BP 119/42
[2016-12-11 05:47] LABS: HEMATOCRIT 31.2 % (37.0-47.0); HEMOGLOBIN 11.1 gm/dL (12.0-15.0); MCH 32.5 pg (26.0-34.0); MCHC 35.5 g/dL (28.0-37.0); MCV 91.8 fL (80.0-100.0); RBC 3.4 mil/uL (4.20-5.00); RDW 12.9 % (10.5-14.5); WBC 18.8 thou/uL (4.0-11.0)
[2016-12-11 06:02] LABS: CALCIUM 7.9 mg/dL (8.5-10.1); CREATININE 1.5 mg/dL (0.6-1.0); POTASSIUM 4.1 mmol/L (3.5-5.1)
[2016-12-11 08:00] VITALS: BP 112/51
[2016-12-11 12:00] VITALS: BP 98/47
[2016-12-11 12:47] LABS: URINE BILIRUBIN NEGATIVE (Negative); URINE BLOOD TRACE (Negative); URINE COLOR YELLOW; URINE GLUCOSE-RANDOM* NEGATIVE (Negative); URINE KETONES NEGATIVE (Negative); URINE NITRITE NEGATIVE (Negative); URINE PROTEIN (DIPSTICK) NEGATIVE (Negative); URINE SPECIFIC GRAVITY <= 1.005 (1.003-1.035); URINE UROBILINOGEN 0.2 E.U./dl (0.2-1.0)
[2016-12-11 12:55] LABS: URINE CREATININE-RANDOM* 41.4 mg/dL
[2016-12-11 16:00] VITALS: BP 113/54
[2016-12-12] VITALS (11 sets, daily range): BP systolic 112–142; BP diastolic 48–72
[2016-12-12 08:12] LABS: ALBUMIN 2.2 g/dL (3.4-5.0); CALCIUM 8.1 mg/dL (8.5-10.1); CREATININE 1.3 mg/dL (0.6-1.0); PHOSPHORUS 2.8 mg/dL (2.5-4.9); POTASSIUM 3.9 mmol/L (3.5-5.1)
[2016-12-13 04:23] LABS: HEMATOCRIT 34.2 % (37.0-47.0); HEMOGLOBIN 11.9 gm/dL (12.0-15.0); MCH 32.8 pg (26.0-34.0); MCHC 34.8 g/dL (28.0-37.0); MCV 94.2 fL (80.0-100.0); RBC 3.63 mil/uL (4.20-5.00); RDW 13.1 % (10.5-14.5); WBC 9.8 thou/uL (4.0-11.0)
[2016-12-13 04:34] LABS: PHOSPHORUS 2.9 mg/dL (2.5-4.9); POTASSIUM 3.9 mmol/L (3.5-5.1)
[2016-12-13 04:58] VITALS: BP 128/58
[2016-12-13 07:29] VITALS: BP 136/57
[2016-12-13 11:57] VITALS: BP 138/62
[2016-12-13 16:36] VITALS: BP 132/68
[2016-12-13 19:43] VITALS: BP 105/59
[2016-12-14 04:23] VITALS: BP 124/55
[2016-12-14 04:40] LABS: HEMATOCRIT 33.2 % (37.0-47.0); HEMOGLOBIN 11.6 gm/dL (12.0-15.0); MCH 32.6 pg (26.0-34.0); MCHC 34.9 g/dL (28.0-37.0); MCV 93.5 fL (80.0-100.0); RBC 3.55 mil/uL (4.20-5.00); RDW 13.2 % (10.5-14.5); WBC 7.2 thou/uL (4.0-11.0)
[2016-12-14 04:46] LABS: ALBUMIN 2.1 g/dL (3.4-5.0); PHOSPHORUS 2.9 mg/dL (2.5-4.9); POTASSIUM 4.2 mmol/L (3.5-5.1)
[2016-12-14 08:37] VITALS: BP 128/70
[2016-12-14 11:57] VITALS: BP 124/58
[2016-12-14 15:18] VITALS: BP 114/58
[2016-12-14 20:05] VITALS: BP 124/62
[2016-12-15 05:16] VITALS: BP 130/61
[2016-12-15 07:12] VITALS: BP 124/64
[2016-12-15 11:16] VITALS: BP 107/66
[2016-12-15 15:58] VITALS: BP 130/64
[2016-12-15 19:15] VITALS: BP 132/67
[2016-12-16 04:02] VITALS: BP 121/54
[2016-12-16 05:38] LABS: HEMOGLOBIN 11.8 gm/dL (12.0-15.0); MCH 32.3 pg (26.0-34.0); MCHC 34.8 g/dL (28.0-37.0); MCV 92.9 fL (80.0-100.0); PLATELET COUNT 398 thou/uL (150-400); RBC 3.66 mil/uL (4.20-5.00)
[2016-12-16 05:44] LABS: MANUAL DIFF YES
[2016-12-16 05:49] LABS: CALCIUM 8.2 mg/dL (8.5-10.1); CREATININE 0.7 mg/dL (0.6-1.0); POTASSIUM 3.9 mmol/L (3.5-5.1)
[2016-12-16 07:35] LABS: ABSOLUTE NEUTROPHILS 4.6 thou/uL (1.4-8.2); ANISOCYTOSIS SLIGHT; METAMYELOCYTES 1 %; TOTAL CELL COUNT 100
[2016-12-16 08:29] VITALS: BP 126/65
[2016-12-16 17:39] VITALS: BP 140/65
[2016-12-16 20:10] VITALS: BP 97/72
[2016-12-17 03:50] VITALS: BP 115/56
[2016-12-17 05:05] LABS: CALCIUM 8.2 mg/dL (8.5-10.1); CREATININE 0.8 mg/dL (0.6-1.0)
[2016-12-17 08:21] VITALS: BP 104/59
[2016-12-17 12:23] VITALS: BP 104/59
[2016-12-17 12:37] VITALS: BP 104/59
== END 2016-12-17 13:04 | disposition home health service (06) | DRG 199 ==
LOC: ER 21:33 → 4W 11-29 04:45 → EROBS 11-29 04:45 → 4W 11-29 05:43
PROVIDERS: Emergency Medicine; Family Medicine; Internal Medicine Hematology & Oncology; Internal Medicine Nephrology; Internal Medicine Pulmonary Disease; Radiology Diagnostic Radiology
PROC: 0W9930Z Drainage of Right Pleural Cavity with Drainage Device, Percutaneous Approach (ICD-10-PCS; principal; 2016-12-01)
PROC: 0W9B30Z Drainage of Left Pleural Cavity with Drainage Device, Percutaneous Approach (ICD-10-PCS; 2016-12-04)
PROC: 0JB60ZX Excision of Chest Subcutaneous Tissue and Fascia, Open Approach, Diagnostic (ICD-10-PCS; 2016-12-08)
PROC: 0BBF3ZX Excision of Right Lower Lung Lobe, Percutaneous Approach, Diagnostic (ICD-10-PCS; 2016-12-11)
DX: J93.9 Pneumothorax, unspecified (principal); K57.91 Diverticulosis of intestine, part unspecified, without perforation or abscess with bleeding; C90.00 Multiple myeloma not having achieved remission; N17.9 Acute kidney failure, unspecified; E85.4 Organ-limited amyloidosis; J90 Pleural effusion, not elsewhere classified; E87.1 Hypo-osmolality and hyponatremia; E44.0 Moderate protein-calorie malnutrition; I11.0 Hypertensive heart disease with heart failure; I50.9 Heart failure, unspecified; I25.10 Atherosclerotic heart disease of native coronary artery without angina pectoris; R04.0 Epistaxis; K22.2 Esophageal obstruction; J99 Respiratory disorders in diseases classified elsewhere; K44.9 Diaphragmatic hernia without obstruction or gangrene; F41.9 Anxiety disorder, unspecified; I25.5 Ischemic cardiomyopathy; Z68.23 Body mass index [BMI] 23.0-23.9, adult; Z95.5 Presence of coronary angioplasty implant and graft; Z90.710 Acquired absence of both cervix and uterus; Z90.49 Acquired absence of other specified parts of digestive tract; I25.2 Old myocardial infarction; Z88.8 Allergy status to other drugs, medicaments and biological substances; Z91.030 Bee allergy status
CPT/HCPCS: 10045; 27001; 50010; 50101; 50386; 50417; 50497; 51467; 54118; 56526; 62110; 62850; 70005

== ENCOUNTER → 2017-01-08 | Outpatient (CLI) | payer OTHER ==
[~2017-01-08] MED LIST changes: +BENTYL 10 MG CA10 M1 PO; +SYMBICORT160 MCG/4. INH
== END ==
LOC: RAD 15:29
DX: I51.7 Cardiomegaly (principal); J44.9 Chronic obstructive pulmonary disease, unspecified; J90 Pleural effusion, not elsewhere classified; J98.11 Atelectasis

== ENCOUNTER → 2017-11-13 | Outpatient (CLI) | payer OTHER ==
[2017-11-13 15:45] LABS: CREATININE 0.9 mg/dL (0.6-1.0)
== END ==
LOC: RAD 14:49
PROVIDERS: Internal Medicine Pulmonary Disease
DX: J32.9 Chronic sinusitis, unspecified (principal); J44.9 Chronic obstructive pulmonary disease, unspecified; J90 Pleural effusion, not elsewhere classified; R06.00 Dyspnea, unspecified; R05 Cough

== ENCOUNTER → 2017-11-13 | Outpatient (CLI) | payer OTHER | LOC: RAD 12:32 | DX: J90 Pleural effusion, not elsewhere classified (principal); J44.9 Chronic obstructive pulmonary disease, unspecified; C90.00 Multiple myeloma not having achieved remission; R91.8 Other nonspecific abnormal finding of lung field; R06.00 Dyspnea, unspecified; I11.0 Hypertensive heart disease with heart failure; I50.9 Heart failure, unspecified; I25.10 Atherosclerotic heart disease of native coronary artery without angina pectoris ==

== ENCOUNTER → 2018-02-10 | Outpatient (CLI) | payer OTHER ==
[~2018-02-10] MED LIST changes: +COZAAR 25 MG TA25 M2 PO
== END ==
LOC: RAD 12:49
DX: J44.9 Chronic obstructive pulmonary disease, unspecified (principal); J90 Pleural effusion, not elsewhere classified; J98.4 Other disorders of lung; J98.11 Atelectasis

== ENCOUNTER 2018-02-12 23:09 | Inpatient (IN) | payer OTHER ==
[~2018-02-12] VITALS: Ht 162.6 cm; Wt 62.2 kg
--- NOTE | ~2018-02-12 | EKG ---
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 : 1940 Requested By: Ian Cronin Order Number: [id number] MD: Vinod Campbell Measurements Intervals [place] Rate: 95 P: 84 OK: 209 QRS: -87 QRSD: 111 T: 56 QT: 386 QTc: 486 Interpretive Statements Sinus rhythm Borderline prolonged OK interval Left anterior fascicular block Poor R wave progression Compared to ECG 12/07/2016 20:18:40 Left anterior fascicular block now present Ventricular premature complex(es) no longer present Electronically Signed On 02-15-2018 8:25:58 CDT by Vinod Campbell [email or web address] <ELECTRONICALLY SIGNED> By: Vinod Campbell MD, FAC 02/15/18 0825 2359 Vinod Campbell MD, FAC /EPI
--- NOTE | ~2018-02-12 | 2DMMODE ---
[facility] [place] [address] 2 D/M-MODE ECHOCARDIOGRAM Name: TIO NIÑO FAHAD Room #: 364-P [facility] IN M.R.#: [id number] Admission: 02/13/18 Attend Phys: Jeremi Butler, Discharge: Date of : 36 Date of Service: 02/13/18 1234 Report #: [id number] THIS REPORT FOR: //name// APPROVED REPORT Study performed: 02/13/2018 10:53:15 EXAM: Comprehensive 2D, Doppler, and color-flow Echocardiogram Patient Location: In-Patient Room #: 364 Status: routine BSA: 1.67 HR: 82 bpm BP: 157/68 mmHg Other Information Study Quality: Good Indications Hypertension/HDD 2D Dimensions IVSd: 14.99 (7-11mm) LVOT Diam: 21.48 (18-24mm) LVDd: 41.41 mm PWd: 11.54 (7-11mm) LVDs: 24.09 (25-40mm) Left Atrium: 38.35 (27-40mm) Aortic Root: 29.90 mm IVC: 19.30 mm Volumes Left Atrial Volume (Systole) Single Plane 4CH: 45.31 mL Single Plane 2CH: 51.96 mL Aortic Valve AoV Peak Natanael.: 1.33 m/s AO Peak Gr.: 7.12 mmHg LVOT Max P.22 mmHg AO Mean Gr.: 4.12 mmHg LVOT Mean P.06 mmHg AO V2 Mean: 0.93 m/s LVOT Max V: 0.75 m/s AO V2 VTI: 26.72 cm LVOT Mean V: 0.47 m/s LIANNA (VTI): 2.08 cm2 LVOT V1 VTI: 15.37 cm LIANNA Vmax: 2.03 cm2 SV (LVOT): 55.69 mL Mitral Valve E/A Ratio: 1.0 [facility] [place] [address] 2 D/M-MODE ECHOCARDIOGRAM Name: TIO NIÑO SEPTEMBER Room #: 364-P ADM IN M.R.#: [id number] Admission: 02/13/18 Attend Phys: Jeremi Butler, Discharge: Date of : 36 Date of Service: 02/13/18 1234 Report #: [id number] MV Decel. Time: 177.83 ms MV E Max Natanael.: 0.83 m/s MV A Natanael.: 0.84 m/s MV PHT: 51.57 ms IVRT: 107.27 ms Pulmonary Valve PV Peak Natanael.: 0.79 m/s PV Peak Gr.: 2.48 mmHg Pulmonary Vein P Vein S: 0.40 m/s P Vein A: 0.28 m/s P Vein D: 0.32 m/s P Vein A Dur.: 93.4 msec P Vein S/D Ratio: 1.25 Left Ventricle The left ventricle is normal size. Mild concentric left ventricular hypertrophy. The left ventricular systolic function is normal. The left ventricular ejection fraction is within the normal range. LVEF is 60-65%. Grade II - pseudonormal filling dynamics. Right Ventricle The right ventricle is normal size. The right ventricular systolic function is normal. Atria Left atrium is at the upper limits of normal. The right atrium size is normal. Aortic Valve Aortic valve is thickened but has adequate excursion. No aortic regurgitation is present. Calculated aortic valve area is 2.1 cm2 with maximum pressure gradient of 8 mmHg and mean pressure gradient of 4 mmHg. Mitral Valve The mitral valve is normal in structure. Trace mitral regurgitation. No evidence of mitral valve stenosis. Tricuspid Valve The tricuspid valve is normal in structure. There is no tricuspid valve regurgitation noted. Pulmonic Valve The pulmonary valve is normal in structure. There is no pulmonic valvular regurgitation. [place] [id number] 2 D/M-MODE ECHOCARDIOGRAM Name: TIO NIÑO SEPTEMBER Room #: 364-P [facility] IN M.R.#: [id number] Admission: 02/13/18 Attend Phys: Jeremi Butler, Discharge: Date of : 36 Date of Service: 02/13/18 1234 Report #: [id number] Great Vessels The aortic root is normal in size. IVC is normal in size and collapses >50% with inspiration. Pericardium There is no pericardial effusion. <Conclusion> The left ventricle is normal size. LVEF is 60-65%. Aortic valve is thickened but has adequate excursion. No aortic regurgitation is present. Calculated aortic valve area is 2.1 cm2 with maximum pressure gradient of 8 mmHg and mean pressure gradient of 4 mmHg. The mitral valve is normal in structure. Trace mitral regurgitation. The tricuspid valve is normal in structure. The pulmonary valve is normal in structure. There is no pericardial effusion. <ELECTRONICALLY SIGNED> By: Dheeraj Aguirre MD 02/13/18 1234 1234 1234 Dheeraj Aguirre MD /INF
[~2018-02-12 23:09] MED LIST changes: -COZAAR 25 MG TA25 M2 PO
[2018-02-12 23:12] VITALS: BP 180/102
[2018-02-12 23:40] LABS: BASOPHILS 0.2 % (0.0-2.0); HEMATOCRIT 41.4 % (37.0-47.0); HEMOGLOBIN 14.2 gm/dL (12.0-15.0); LYMPHOCYTES 6.3 % (24.0-44.0); MCH 32.7 pg (26.0-34.0); MCHC 34.4 g/dL (28.0-37.0); MCV 94.9 fL (80.0-100.0); MONOCYTES 3.6 % (1.0-8.0); PLATELET COUNT 336 thou/uL (150-400); POLYS 89.9 % (36.0-66.0); RBC 4.36 mil/uL (4.20-5.00); RDW 13.9 % (10.5-14.5); WBC 13.4 thou/uL (4.0-11.0)
[2018-02-12 23:45] LABS: URINE BILIRUBIN NEGATIVE (Negative); URINE BLOOD TRACE (Negative); URINE CLARITY CLEAR; URINE COLOR YELLOW; URINE GLUCOSE-RANDOM* NEGATIVE (Negative); URINE KETONES NEGATIVE (Negative); URINE LEUKOCYTES-REFLEX NEGATIVE (Negative); URINE NITRITE-REFLEX NEGATIVE (Negative); URINE PROTEIN (DIPSTICK) 1+ (Negative); URINE UROBILINOGEN 0.2 E.U./dl (0.2-1.0)
[2018-02-12 23:53] LABS: ANION GAP 8 mmol/L (7-16); BUN 17 mg/dL (7-18); CALCIUM 9.4 mg/dL (8.5-10.1); CHLORIDE 99 mmol/L (98-107); CO2 25 mmol/L (21-32); GLUCOSE 123 mg/dL (74-106); POTASSIUM 4.5 mmol/L (3.5-5.1); SODIUM 132 mmol/L (136-145)
[2018-02-13 00:01] LABS: BACTERIA-REFLEX None Seen /HPF (None Seen); CASTS None Seen /LPF (None Seen); CRYSTALS None Seen /LPF (None Seen); SQUAMOUS 0-3 Few /LPF (0-3); URINE RBC None Seen /HPF (0-2); URINE WBC-REFLEX 0-5 Rare /HPF (0-5)
[2018-02-13 00:02] LABS: ALBUMIN 3.5 g/dL (3.4-5.0); LIPASE 132 U/L (73-393); SGOT 32 U/L (15-37); SGPT 32 U/L (30-65); TOTAL BILIRUBIN 0.4 mg/dL (<0.1-1.0); TOTAL PROTEIN 7.1 g/dL (6.4-8.2); TROPONIN-I <0.06 ng/mL (<0.06)
[2018-02-13 01:56] VITALS: BP 177/97
[2018-02-13 02:16] VITALS: BP 178/88
[2018-02-13 02:40] VITALS: BP 160/71
[2018-02-13 07:44] VITALS: BP 157/68
[2018-02-13] MEDS ORDERED: COZAAR 25 MG TA25 M2 PO (09:57)
[2018-02-13 12:48] VITALS: BP 157/68
== END 2018-02-13 13:59 | disposition home or self-care (01) | DRG 304 ==
LOC: ER 23:09 → EROBS 02-13 00:33 → 3W 02-13 02:17
PROVIDERS: Emergency Medicine
DX: I16.0 Hypertensive urgency (principal); I50.33 Acute on chronic diastolic (congestive) heart failure; I42.9 Cardiomyopathy, unspecified; I11.0 Hypertensive heart disease with heart failure; I25.10 Atherosclerotic heart disease of native coronary artery without angina pectoris; R10.9 Unspecified abdominal pain; T36.8X5A Adverse effect of other systemic antibiotics, initial encounter; Y92.89 Other specified places as the place of occurrence of the external cause; Z90.49 Acquired absence of other specified parts of digestive tract; Z85.79 Personal history of other malignant neoplasms of lymphoid, hematopoietic and related tissues; Z91.14 Patient's other noncompliance with medication regimen; Z90.710 Acquired absence of both cervix and uterus; Z95.5 Presence of coronary angioplasty implant and graft; Z79.82 Long term (current) use of aspirin; Z79.899 Other long term (current) drug therapy; Z88.8 Allergy status to other drugs, medicaments and biological substances; Z91.030 Bee allergy status; Z91.041 Radiographic dye allergy status
CPT/HCPCS: 10879

== ENCOUNTER → 2018-08-02 | Outpatient (CLI) | payer OTHER ==
[~2018-08-02] MED LIST changes: +COZAAR 25 MG TA25 M2 PO
== END ==
LOC: RAD 12:49
DX: J44.9 Chronic obstructive pulmonary disease, unspecified (principal); J98.11 Atelectasis; J90 Pleural effusion, not elsewhere classified; J98.4 Other disorders of lung

== ENCOUNTER 2018-11-15 22:51 | Inpatient (IN) | payer OTHER ==
[~2018-11-15] VITALS: Ht 162.6 cm; Wt 53.8 kg
[2018-11-15 22:52] VITALS: BP 181/80
--- NOTE | 2018-11-16 01:00 | NUR ---
[facility] CALLED TO OBTAIN BLOOD TUBES DUE TO DIFFICULT BLOOD DRAW
[2018-11-16 01:56] LABS: ABSOLUTE NEUTROPHILS 11.7 thou/uL (1.4-8.2); BASOPHILS 0.3 % (0.0-2.0); EOSINOPHILS 0.1 % (0.0-3.0); HEMATOCRIT 40.7 % (37.0-47.0); HEMOGLOBIN 14.3 gm/dL (12.0-15.0); LYMPHOCYTES 5.7 % (24.0-44.0); MCH 32.6 pg (26.0-34.0); MCHC 35.2 g/dL (28.0-37.0); MCV 92.5 fL (80.0-100.0); MONOCYTES 8.8 % (1.0-8.0); PLATELET COUNT 392 thou/uL (150-400); POLYS 85.1 % (36.0-66.0); RDW 13.8 % (10.5-14.5); WBC 13.7 thou/uL (4.0-11.0)
[2018-11-16 01:59] LABS: CALCIUM 8.5 mg/dL (8.5-10.1); CREATININE 0.9 mg/dL (0.6-1.0); POTASSIUM 3.3 mmol/L (3.5-5.1)
[2018-11-16 02:08] LABS: TROPONIN-I 0.07 ng/mL (<0.06)
[2018-11-16 02:52] LABS: URINE BILIRUBIN NEGATIVE (Negative); URINE BLOOD NEGATIVE (Negative); URINE CLARITY CLEAR; URINE COLOR YELLOW; URINE GLUCOSE-RANDOM* NEGATIVE (Negative); URINE KETONES NEGATIVE (Negative); URINE LEUKOCYTES-REFLEX NEGATIVE (Negative); URINE NITRITE-REFLEX NEGATIVE (Negative); URINE PROTEIN (DIPSTICK) NEGATIVE (Negative); URINE SPECIFIC GRAVITY <= 1.005 (1.005-1.035); URINE UROBILINOGEN 0.2 E.U./dl (0.2-1.0)
[2018-11-16] MEDS ORDERED: CLARITIN10 MG PO (05:58)
[2018-11-16] MEDS ORDERED: VITAMIN B-12500 MCG PO (05:58)
[2018-11-16] MEDS ORDERED: PEPCID20 MG PO (06:00)
[2018-11-16] MEDS ORDERED: MUCINEX600 MG PO (06:01)
[2018-11-16] MEDS ORDERED: LASIX 40 MG TAB40 M2 PO (06:02)
[2018-11-16] MEDS ORDERED: CENTRUM SILVER1 EAC4 PO (06:03)
[2018-11-16] MEDS ORDERED: PEPTO-BISMOL1 TAB PO (06:04)
[2018-11-16 06:17] VITALS: BP 188/86
--- NOTE | 2018-11-16 06:39 | NUR ---
PATIENT IS ALERT AND ORIENTED. PATINET IS SBA. PATIENT IS ON ROOM AIR. PATIENT CHEST TIGHTNESS AND RATED A TWO. DOES NOT RADIATE. PATIENT COMPLAINS OF RING IN HER EARS AND BLURRY VISION. PATEINT HAS A DECREASED APPITITE AND HAS LOST 5 POUNDS IN RECENT WEEKS. PATIENT CO NOT BEING ABLE TO BREATH WHEN LAYING FLAT. PATIENT LIVE HOME ALONE IN A APARTMENT. PATIENT IS RESTING COMFORTABLY IN BED. WCM. PATIENT IS PROGRESSING TO GOALS.
[2018-11-16 07:55] VITALS: BP 190/66
[2018-11-16 12:10] LABS: URINE CREATININE-RANDOM* <13 mg/dL; URINE SODIUM-RANDOM* 39 mmol/L
--- NOTE | 2018-11-16 14:16 | NUR ---
INITIAL ASSESSMENT: Received consult for discharge planning. HANK reviewed chart and spoke with nursing and attending physician. Pt was admitted from home due to weakness/chest tightness. Pt with hx of HTN/CHF. Pt was recently hospitalized at [facility]. HANK met with pt at bedside. Introduced role of SW. Pt is alert/orientated x 4. Pt reports she lives at home alone in an apt at [facility]. No steps to enter and no steps inside. There is an elevator. Prior to admission, pt was indepedent with ADLs. No use of DME. No hx of HH services or SNF/Rehab placement. Pt states that her neighbors help her and are her support system. Pt does not have a PCP and requests info for primary care groups [facility]. Plan is for pt to return home when medically stable. HANK is following to assist as needed with discharge planning.
[2018-11-16 14:38] VITALS: BP 130/71
--- NOTE | 2018-11-16 16:04 | NUR ---
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 became dizzy-see flowsheet
[2018-11-16 16:45] VITALS: BP 110/56
--- NOTE | 2018-11-16 18:53 | NUR ---
ASSUMED CARE OF PT AT 0700. PT ALERT AND ORIENTED WEAK COMPLAINING OF GENERAL MALAISE. UP W/ STAND BY ASSIST TO BR. IV FLUIDS D/C'D PER PHYSICIAN. ONE TIME DOSE LASIX. HYPERTENSIVE THIS AM - IMPROVED WITH MEDS. DURING EARLY AFTERNOON, PATIENT HAD SYNCOPAL EPISODE WHILE ON TOILET. DID NOT FALL. PLACED BACK INTO BED, WHERE PATIENT CAME TO, ONLY COMPLAINING OF DIZZINESS. VITALS WITHIN NORMAL LIMITS. BLOOD SUGAR NORMAL. PHYSICIAN NOTIFIED - INSTRUCTED TO MONITOR. PT SHOWED IMPROVEMENT OVER NEXT SEVERAL HOURS. COMPLAINING OF LOWER BACK PAIN AFTER LASIX GIVEN. TYLENOL GIVEN FOR SOME RELIEF. PT CALLS OUT APPROPRIATELY. FALL PRECAUTIONS IN PLACE. SLOW PROGRESS TOWARD POC GOALS.
[2018-11-16 20:34] VITALS: BP 108/52
[2018-11-17 05:01] VITALS: BP 129/51
[2018-11-17 05:58] LABS: HEMATOCRIT 42.2 % (37.0-47.0); HEMOGLOBIN 14.6 gm/dL (12.0-15.0); MCHC 34.6 g/dL (28.0-37.0); MCV 95.3 fL (80.0-100.0); RBC 4.43 mil/uL (4.20-5.00); RDW 13.6 % (10.5-14.5); WBC 12.1 thou/uL (4.0-11.0)
[2018-11-17 06:06] LABS: CALCIUM 8.5 mg/dL (8.5-10.1); CREATININE 0.9 mg/dL (0.6-1.0); POTASSIUM 3.6 mmol/L (3.5-5.1)
--- NOTE | 2018-11-17 07:53 | EKG ---
[place] [address] [email or web address] 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 [employer]: RICCARDO : 1940 Requested By: Arturo Gutierrez Order Number: [id number] MD: Vinod Campbell Measurements Intervals [place] Rate: 70 P: 41 RI: 185 QRS: -71 QRSD: 120 T: 81 QT: 452 QTc: 488 Interpretive Statements Sinus rhythm Left anterior fascicular block LVH with secondary repolarization abnormality Anterior infarct, old Compared to ECG 02/12/2018 23:59:00 lateral T wave abnormality is new Electronically Signed On 11-17-2018 7:53:42 CDT by Vinod Campbell [email or web address] ��������������������������������������������� <ELECTRONICALLY SIGNED> ���������������������������������������� By: Vinod Campbell MD, [facility] ��������������������������������������������� 11/17/18 0753 0017 0017 Vinod Campbell MD, [facility] /EPI
--- NOTE | 2018-11-17 08:01 | NUR ---
PT MAKING PROGRESS TOWARDS GOALS. REPORTS BACK PAIN BUT ONLY REQUESTED TYLENOL THIS MORNING. PT ASLEEP AFTER DOSE GIVEN AND UPON REASSESSMENT. CONTINUE TO MONITOR.
[2018-11-17 08:05] VITALS: BP 123/54
--- NOTE | 2018-11-17 08:10 | EKG ---
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 : 1940 Requested By: Xu Brush Order Number: [id number] MD: Vinod Campbell Measurements Intervals [place] Rate: 85 P: 14 CO: 245 QRS: -83 QRSD: 112 T: 87 QT: 399 QTc: 475 Interpretive Statements Sinus rhythm Prolonged CO interval Left anterior fascicular block Poor R wave progression LVH with repolarization abnormality Compared to ECG 02/12/2018 23:59:00 No significant change was found Electronically Signed On 11-17-2018 8:10:23 CDT by Vinod Campbell [email or web address] ��������������������������������������������� <ELECTRONICALLY SIGNED> ���������������������������������������� By: Vinod Campbell MD, [facility] ��������������������������������������������� 11/17/18 0810 1426 1426 Vinod Campbell MD, [facility] /EPI
[2018-11-17 11:47] VITALS: BP 110/56; BP 123/66
[2018-11-17 11:49] VITALS: BP 87/56
--- NOTE | 2018-11-17 14:02 | 2DMMODE ---
[facility] [address] [place] [address] 2 D/M-MODE ECHOCARDIOGRAM Name: TIO NIÑO FAHAD Room #: 363-P ADM IN M.R.#: [id number] ������������� Admission: 11/16/18 ������������� Attend Phys: Zoe Sullivan Discharge: ��� ������������� ��� Date of : 36 Date of Service: 11/17/18 1402 �� Report #: [id number] �������� ��������������������������������������������[id number] THIS REPORT FOR: //name// APPROVED REPORT Study performed: 11/17/2018 12:10:45 EXAM: Comprehensive 2D, Doppler, and color-flow Echocardiogram Patient Location: In-Patient Room #: 363 Status: routine BSA: 1.67 HR: 79 bpm BP: 123/54 mmHg Rhythm: NSR Other Information Study Quality: Good Indications Acute [place] Chest Pain. Hx; HTN, CAD, Stent, elevated troponin, amyloid. 2D Dimensions RVDd: 31.06 mm IVSd: 16.07 (7-11mm) LVOT Diam: 20.60 (18-24mm) LVDd: 38.84 mm PWd: 15.83 (7-11mm) LVDs: 28.03 (25-40mm) Aortic Root: 27.80 mm Volumes Left Atrial Volume (Systole) Single Plane 4CH: 57.44 mL Single Plane 2CH: 90.75 mL LA ESV Index: 47.00 mL/m2 Aortic Valve AoV Peak Natanael.: 1.43 m/s AO Peak Gr.: 8.21 mmHg LVOT Max P.25 mmHg LVOT Max V: 1.03 m/s LIANNA Vmax: 2.40 cm2 Mitral Valve E/A Ratio: 0.9 MV Decel. Time: 186.16 ms [facility] [address] [place] [address] 2 D/M-MODE ECHOCARDIOGRAM Name: TIO NIÑO SEPTEMBER Room #: 363-P [facility] IN ..#: [id number] ������������� Admission: 11/16/18 ������������� Attend Phys: Zoe Sullivan Discharge: ��� ������������� ��� Date of : 36 Date of Service: 11/17/18 1402 �� Report #: [id number] �������� ��������������������������������������������[id number] E Max Natanael.: 0.74 m/s MV A Natanael.: 0.80 m/s MV PHT: 53.99 ms IVRT: 78.43 ms Pulmonary Valve PV Peak Natanael.: 0.89 m/s PV Peak Gr.: 3.16 mmHg Tricuspid Valve RAP Estimate: 5.00 mmHg Left Ventricle The left ventricle is normal size. Moderate concentric left ventricular hypertrophy. The left ventricular systolic function is normal. LVEF is 55-60%. Mild diastolic dysfunction is present (impaired relaxation pattern). Right Ventricle The right ventricle is normal size. The right ventricular systolic function is normal. Atria Left atrium is dilated. The right atrium size is normal. Aortic Valve Aortic valve is moderately calcified but has adequate excursion. No aortic regurgitation is present. There is no aortic valvular stenosis. Mitral Valve The mitral valve is normal in structure. There is mitral annular calcification. Mitral valve leaflets are thickened. Mild mitral regurgitation. No evidence of mitral valve stenosis. Tricuspid Valve The tricuspid valve is normal in structure. Trace tricuspid regurgitation. Pulmonic Valve Pulmonic valve is not well visualized. Great Vessels The aortic root is normal in size. IVC is normal in size and collapses >50% with inspiration. Pericardium [facility] [place] [address] 2 D/M-MODE ECHOCARDIOGRAM Name: TIO NIÑO SEPTEMBER Room #: 363-P ADM IN M.R.#: [id number] ������������� Admission: 11/16/18 ������������� Attend Phys: Zoe Sullivan Discharge: ��� ������������� ��� Date of : 36 Date of Service: 11/17/18 1402 �� Report #: [id number] �������� ��������������������������������������������[id number] There is no pericardial effusion. <Conclusion> The left ventricle is normal size. LVEF is 55-60%. Left atrium is dilated. Aortic valve is moderately calcified but has adequate excursion. The mitral valve is normal in structure. There is mitral annular calcification. Mitral valve leaflets are thickened. Mild mitral regurgitation. The tricuspid valve is normal in structure. Trace tricuspid regurgitation. Pulmonic valve is not well visualized. There is no pericardial effusion. ��������������������������������������������� <ELECTRONICALLY SIGNED> ���������������������������������������� By: Dheeraj Augirre MD ��������������������������������������������� 11/17/18 140 01 01 Dheeraj Aguirre MD /INF
--- NOTE | 2018-11-17 15:02 | NUR ---
HANK reviewed chart and spoke with nursing and attending physician. Cardiology consulted today to evaluate pt. Pt remains on IV fluids. Therapy is working with pt for recommendations for discharge needs: DME/HH. Plan is for pt to return to her [place] apt when medically stable. HANK is following to assist as needed with discharge planning.
[2018-11-17 16:24] VITALS: BP 93/51
[2018-11-17 19:18] VITALS: BP 138/70
--- NOTE | 2018-11-17 19:42 | NUR ---
care of pt assumed this am 2 ~0700. pt noted to be quiet and soft spoken this am. pt verbalized her lack of desire to eat her meals today, stating that "hospital food makes me sick", "i need to have something sweet to eat or i get nauseated". pt given a magic cup at lunch per dietary consult. pt encourage to use her menu to customize her meals. pt co of ringing in her ears, dizziness today. pt noted to be orthostatic when assess this afternoon. pt worked w/ pt today walking her to the room door and to the [facility] w/out any syncope. pt verbalized that she is to have have more than 2lt/day per the renal doctor. pt desired a shower today, but rn felt pt bp to labile, when she is up, to take on an hour process w/ a warm humid environment.
[2018-11-18] VITALS (7 sets, daily range): BP systolic 84–144; BP diastolic 56–80
[2018-11-18 06:13] LABS: ALBUMIN 2.7 g/dL (3.4-5.0); CALCIUM 9.1 mg/dL (8.5-10.1); CREATININE 0.7 mg/dL (0.6-1.0); PHOSPHORUS 3.1 mg/dL (2.5-4.9); POTASSIUM 3.7 mmol/L (3.5-5.1)
--- NOTE | 2018-11-18 08:06 | HC ---
[facility] [address] [place] [address] CONSULTATION Name: TIO NIÑO SEPTEMBER Room #: 363-P ADM IN M.R.#: [id number] Admission: 11/16/18 ������������������ Attend Phys: Zoe Lawrence Discharge: ������������������ Date of : 38 Report #: [id number] THIS REPORT FOR: //name// CC: [facility] physician/PCP Zoe Lawrence REASON FOR CONSULTATION: Hyponatremia. REASON FOR PRESENTATION: Lower extremity swelling, weakness. HISTORY OF PRESENT ILLNESS: The patient presented to the Emergency Room, reporting that she has been having increased lower extremity swelling, weakness over the last few days. She is known to have hypertension, myeloma, history of amyloidosis with vague details about those issues. She was recently discharged from [facility] after being treated for same issues. I reviewed her medical record in [facility] and it does look like that the patient has history of diastolic heart failure and was initiated on diuresis. I do not see that levofloxacin was included on her files Lasix was included on her discharge medications at [facility]. She realized that she started to have some increased bilateral lower extremity swelling. This was also associated with shortness of breath. Of note is the fact that the patient has recent cardiac evaluation at [facility] and she was found to have diastolic heart failure with normal ejection fraction. She is known to have coronary artery disease with LAD stent, diagonal stent back in 2016. On presentation, the patient was found to have hyponatremia. Sodium was 125 on her presentation. No thiazide diuretics. She described her water intake as being excessive. Discharge sodium values at [facility] revealed a value of 133. PAST MEDICAL HISTORY: 1. Myeloma. 2. Hypertension. 3. Coronary artery disease status post stenting. 4. Celiac artery disease. 5. Spontaneous pneumothorax. PAST SURGICAL HISTORY: 1. Post cardiac catheterization. 2. Post foot surgery. 3. Hysterectomy. 4. Gallbladder surgery. FAMILY HISTORY: Her uncle and brother had stroke. DISCHARGE MEDICATIONS: From the [facility] included: 1. Metoprolol. [facility] [address] [place] [address] CONSULTATION Name: TIO INÑO SEPTEMBER Room #: 363-P ADM IN M.R.#: [id number] Admission: 11/16/18 ������������������ Attend Phys: Zoe Lawrence Discharge: ������������������ Date of : 38 Report #: [id number] 2. Aspirin. 3. Pepcid. 4. Levofloxacin. 5. Prednisone. SOCIAL HISTORY: She is . No drug or alcohol abuse. REVIEW OF SYSTEMS: GENERAL: Significant for weakness. CARDIOVASCULAR: No chest pain, but she had some orthopnea and dyspnea on exertion. She did have some increased bilateral lower extremity edema. PULMONARY: No cough or hemoptysis, but has dyspnea on exertion. GASTROINTESTINAL: No nausea or vomiting. GENITOURINARY: No frequency, no urgency. MUSCULOSKELETAL: Occasional arthralgias and back pain. PHYSICAL EXAMINATION: GENERAL: The patient was alert, oriented, in no apparent distress. VITAL SIGNS: Blood pressure was marginal at 140/75. She was afebrile. Pulse rate was 80. HEAD AND NECK: No jugular venous distention. CHEST: Bilateral crackles. CARDIOVASCULAR: No rub detected. ABDOMEN: Soft, nontender with no hepatosplenomegaly. LOWER EXTREMITIES: +2 edema. LABORATORY DATA: Reviewed. Sodium on presentation was 125. All of her laboratory values from [facility] were reviewed. ASSESSMENT, IMPRESSION, PLAN: 1. Hypovolemic hyponatremia. 2. Diastolic heart failure. 3. Coronary artery disease. 4. Known history of amyloidosis, myeloma. 5. Known history of coronary artery disease. 6. Spontaneous pneumothorax. 7. The patient's hyponatremia is due to her heart failure. Discontinue IV fluid. 8. Initiate appropriate diuretic regimen. 9. Fluid restrictions. 10. Salt restrictions. 11. With the patient's history of myeloma and amyloidosis, pseudohyponatremia should be in the differential diagnosis and I will send appropriate laboratory investigations for that. [facility] [address] [place] [address] CONSULTATION Name: TIO NIÑO SEPTEMBER Room #: 363-P ADM IN M.R.#: [id number] Admission: 11/16/18 ������������������ Attend Phys: Zoe Lawrence Discharge: ������������������ Date of : 38 Report #: [id number] 12. Full cardiac evaluation has been done at [facility]. 13. Resume her usual medications related to her heart failure. ��������������������������������������������� <ELECTRONICALLY SIGNED> ���������������������������������������� By: Perla Schofield MD ��������������������������������������������� 11/18/18 0806 1305 1430 Perla Schofield MD /nt
--- NOTE | 2018-11-18 14:43 | NUR ---
SW reviewed chart and spoke with nursing and attending physician. Pt is progressing towards goals for discharge. Attending physician recommended SNF placement. SW met with pt at bedside to discuss post-acute placement. Pt declines, stating that she is wanting to return to her apt at [facility] and will agree to HH if absolutely necessary. SW provided pt with list of SNFs for review. SW updated attending physician. SW is following to assist as needed with discharge planning.
--- NOTE | 2018-11-18 16:08 | HC ---
[facility] [place] [address] [place] [address] CONSULTATION Name: TIO NIÑO SEPTEMBER Room #: 363-P ADM IN M.R.#: [id number] Admission: 11/16/18 ������������������ Attend Phys: Zoe Lawrence Discharge: ������������������ Date of : 38 Report #: [id number] THIS REPORT FOR: //name// CC: [facility] physician/PCP Zoe Lawrence DATE OF SERVICE: 11/18/2018 REASON FOR CONSULTATION: Dizziness and vertigo. HISTORY OF PRESENT ILLNESS: The patient is an 78-year-old female who complains of elevated blood pressure issues. She was at home and had an episode of dizziness where she felt like the room was spinning around her head. It lasted for a few minutes. She called 911 and the ambulance reported. She says she still remained dizzy ____ came to the Emergency Room. By the time she got to the Emergency Room within about 30 minutes, the dizziness had let up. She was told that she had abnormal electrolytes and that was the reason that she was having problems with dizziness. She subsequently had an episode yesterday where she passed out. DICTATION ENDS HERE ��������������������������������������������� <ELECTRONICALLY SIGNED> ���������������������������������������� By: Mauro Ross MD ��������������������������������������������� 11/18/18 1608 1434 1441 Mauro Ross MD /nt
[2018-11-19] VITALS (7 sets, daily range): BP systolic 89–136; BP diastolic 47–74
--- NOTE | 2018-11-19 08:06 | NUR ---
PT MAKING SLOW PROGRESS TOWARDS GOALS. TYLENOL ONCE FOR HEADACHE TO WHICH PT VOICED MILD RELIEF. ALSO C/O LOWER BACK DISCOMFORT BUT REFUSED NEED FOR ANY PAIN MEDICATION. DID ASSIST PT WITH REPOSITIONING. NO FURTHER COMPLAINTS VOICED.
[2018-11-19 09:29] LABS: CALCIUM 9.3 mg/dL (8.5-10.1); CREATININE 0.8 mg/dL (0.6-1.0); MAGNESIUM 1.9 mg/dL (1.8-2.4); POTASSIUM 3.4 mmol/L (3.5-5.1)
--- NOTE | 2018-11-19 12:01 | NUR ---
SW reviewed chart and spoke with nursing and attending physician. Pt is progressing towards goals for discharge. SW met with pt at bedside to discuss post-acute placement. Pt is agreeable with SNF placement. Pt requests referral to [facility]. SW explained process for referral and acceptance. Pt had questions regarding transportation. SW explained that [facility] will arrange transportation to their facility and assist her when she is ready for discharge home. Pt agreeable with referral and aware of possible discharge today or over the weekend pending nephrology clearance. planner intern to fax clinical info for review. SW notified [facility] April boucher. SW is following to assist as needed with discharge planning.
--- NOTE | 2018-11-19 12:08 | NUR ---
DISCHARGE PLANNING. PATIENT PROGRESSING TOWARDS DISCHARGE GOALS. POST ACUTE RECOMMENDED AT DISCHARGE. PATIENT REQUESTS REFERRAL FAXED TO [facility] FOR POST ACUTE CARE NEEDS. REFERRAL FAXED AND CALL PLACED TO JANEE, [facility] ADMISSIONS, TO NOTIFY. SAMUEL, [facility] LIAISON, ALSO NOTIFIED. JANEE TO REVIEW REFERRAL AND NOTIFY CM. AWAITING RESPONSE. UNIT SW AWARE. FOLLOWING.
--- NOTE | 2018-11-19 14:50 | NUR ---
TOOK RESPONSIBILITY FOR PATIENT AT 0700. PATIENT STILL ON FLUID AND SODIUM RESTRICTION ALONG WITH LASIX. STILL MANAGING BLOOD PRESSURE WITH METOPROLOL AND ADDED MIDODRINE TODAY TO HELP ORTHOSTATIC HYPOTENSION. PERFORMED ORTHOSTATIC VITALS THROUGHOUT THE DAY, PATIENT'S BP STILL DROPS WHEN SITTING STANDING AFTER ADMINISTERING MIDODRINE. FALL RISK AND DEHYRADTION RISK. PATIENT HAS HAD LESS HEADACHE PAIN TODAY WITH ONLY ONE DOSE OF PRN TYLENOL.
[2018-11-20 04:18] VITALS: BP 134/67
--- NOTE | 2018-11-20 05:32 | NUR ---
ASSUMED CARE OF PATIENT AT 1900. VSS, AFEBRILE. DENIES PAIN. VERY TEARFUL, WANTING TO SHOWER. EDUCATED TO WHY A BED BATH WOULD BE MORE APPROPRIATE AT THIS TIME. PATIENT EAGER FOR THAT AND ABLE TO SLEEP THROUGH THE NIGHT AFTER BATH. BP REMAINS STABLE. PROGRESSING SLOWLY TOWARDS POC GOALS.
[2018-11-20 07:31] VITALS: BP 113/59
[2018-11-20 10:40] VITALS: BP 118/57
[2018-11-20 10:42] VITALS: BP 116/60; BP 77/49
--- NOTE | 2018-11-20 10:55 | NUR ---
SPOKE WITH DR. WEST, STATED OK FOR PATIENT TO TRANSFER TO REHAB.
[2018-11-20 11:36] LABS: CREATININE 0.9 mg/dL (0.6-1.0); POTASSIUM 4.3 mmol/L (3.5-5.1)
[2018-11-20 15:26] VITALS: BP 137/63
--- NOTE | 2018-11-20 16:36 | NUR ---
SPOKE WITH DR. CARTER, PATIENT POSSIBLE DISCHARGING TOMORROW TO [facility]. FACILITY NOTIFIED WITH POINT OF CONTACT (SAMUEL), FAX NUMBER IS [phone]. CALL SAMUEL WHEN PATIENT IS READY TO DISCHARGE.
[2018-11-20 19:18] VITALS: BP 116/45
--- NOTE | 2018-11-20 20:51 | NUR ---
PATIENT ALERT AND ORIENTED X4, NO COMPLAINTS OF PAIN. SINUS RHYTHM ON ACCOUNT MANAGEMENT ASSISTANT. ON ROOM AIR. TOLERATING REGULAR DIET, EDUCATED ON FLUID RESTRICTION. UP WITH STANDBY ASSISTANCE TO THE BEDSIDE COMMODE. ORTHOSTATIC VITALS TAKEN THIS MORNING, DR. WEST UPDATED. NO SIGNS OF ACUTE DISTRESS NOTED AT THIS TIME. WILL CONTINUE TO MONITOR.
[2018-11-21] VITALS (7 sets, daily range): BP systolic 89–144; BP diastolic 61–76
--- NOTE | 2018-11-21 07:48 | NUR ---
SLEPT MOST OF SHIFT. DENIES PRESENT COMPLAINTS. UP TO COMODE WITH STANDBY ASSIST. NOTIFIED RIGHT OF WAY MAN OF CT RESULTS LAST NOC AND ANTIBIOTICS STARTED. WORKING ON GOALS AND PLAN OF CARE FOR NOC. NOT PROGRESSING TOWARDS DISCHARGE GOALS AT THIS TIME. CONTINUE TO ASSES CLOSELY.
[2018-11-21 09:21] LABS: CALCIUM 8.7 mg/dL (8.5-10.1); CREATININE 0.9 mg/dL (0.6-1.0); MAGNESIUM 1.7 mg/dL (1.8-2.4); POTASSIUM 4.1 mmol/L (3.5-5.1)
[2018-11-21 10:06] LABS: IgA 79 mg/dL (64-422); IgG 561 mg/dL (700-1600); IgM 72 mg/dL (26-217)
[2018-11-21 10:49] LABS: HEMATOCRIT 40.9 % (37.0-47.0); HEMOGLOBIN 13.9 gm/dL (12.0-15.0); MCH 32.8 pg (26.0-34.0); MCHC 33.9 g/dL (28.0-37.0); MCV 96.7 fL (80.0-100.0); RBC 4.23 mil/uL (4.20-5.00); WBC 12.4 thou/uL (4.0-11.0)
--- NOTE | 2018-11-21 16:39 | NUR ---
ASSUMED CARE OF PT AT 0700. PT ALERT AND ORIENTED IN NO ACUTE DISTRESS. PT FRUSTRATED WITH CONFLICTING INFORMATION SHE IS GETTING FROM PHYSICIANS ON HER SALT INTAKE. ORTHOSTATIC BP DOCUMENTED. ABX INFUSING PER ORDER. SINUS ON TELEMETRY. OTHERWISE NO REMARKABLE CHANGES TO REPORT. UP W/ SBA. REQUESTED OINTMENT FOR BACKSIDE. NO SKIN BREAKDOWN NOTED. WILL CONT TO MONITOR.
[2018-11-22] VITALS (8 sets, daily range): BP systolic 87–147; BP diastolic 54–79
[2018-11-22 06:19] LABS: ALBUMIN 2.4 g/dL (3.4-5.0); CALCIUM 8.7 mg/dL (8.5-10.1); CREATININE 0.8 mg/dL (0.6-1.0); PHOSPHORUS 3.6 mg/dL (2.5-4.9); POTASSIUM 4.1 mmol/L (3.5-5.1)
--- NOTE | 2018-11-22 08:03 | NUR ---
SLEPT MOST OF SHIFT. UP TO COMODE WITH STANDBY ASSIST NEEDED. GAIT STEADY. MAINTAIN SAFE ENVIRONMENT. WORKING ON GOALS AND PLAN OF CARE FOR NOC. PROGRESSING SLOWLY TOWARDS DISCHARGE GOALS TO SNIFF. DENIES COMPLAINTS OF PAIN THIS SHIFT. CONTINUE TO ASSES.
--- NOTE | 2018-11-22 10:26 | NUR ---
heavenly sent updates to [facility].
[2018-11-22 12:11] LABS: KAPPA/LAMBDA RATIO 0.03 (0.26-1.65); LAMBDA FREE LIGHT CHAINS 231.2 mg/L (5.7-26.3)
--- NOTE | 2018-11-22 14:45 | NUR ---
SW reviewed chart and spoke with nursing and attending physician. Pt is not ready for discharge to [facility] today. SW updated [facility] liaison, who will continue to follow. SW is following to assist as needed with discharge planning.
--- NOTE | 2018-11-22 20:41 | NUR ---
Assumed care approx. 0700 this AM. Patient seemed to be slightly anxious today with worries about wanting to leave, but also concerned about her shortness of breath. The patient became dizzy with orthostatic checks this morning. Dr. Butler updated on the matter, along with orthostatic BP results. (See vitals for lying, standing, and sitting results). An order was given for a 500 ml bolus. The patient was very worried about fluid overloading, but Dr. Butler said he got confirmation from the cardio and renal docs who also agreed to do the bolus, so the patient was then agreeable. Orthostatics taken after bolus per verbal orders (see vitals for results). Nonproductive cough noted today. Tylenol given for headache late this afternoon. Fall precautions in place. Progressing toward plan of care goals.
--- NOTE | 2018-11-22 23:57 | NUR ---
SPOKE WITH PROVIDER REGARDING, COMPLAINTS OF CHEST PAIN TO RIGHT BREAST THAT IS INTERMITTENT AND IS SHARP. SHE IS ANXIOUS, PT STATED THAT SHE THINKS IT IS INDIGESTION. COMPLAIN OF JUST NOT FEELING GOOD TONIGHT. SHE SAYS THAT THE MEDICATION CHANGES ARE AFFECTING HER. NOTIFIED CARDIOLOGY OF HER REMOTE SYMPTOMS AND OBTAINED AN EKG, COMMUNICATED RESULTS.
[2018-11-23 00:35] VITALS: BP 136/73
[2018-11-23 03:47] VITALS: BP 150/73
--- NOTE | 2018-11-23 04:01 | NUR ---
DENIES CHEST PAIN THIS AM. SHE IS WORRIED ABOUT HER BLOOD PRESSURE, SHE BELIEVES IT TO BE TO HIGH. SHE IS ANXIOUS AND ASKS MANY QUESTIONS ABOUT HER CARE. CAREPLAN REVIEWED. SHE IS ATTEMPTING TO REST TONIGHT.
[2018-11-23 05:34] LABS: ALBUMIN 2.4 g/dL (3.4-5.0); CALCIUM 8.7 mg/dL (8.5-10.1); CREATININE 0.7 mg/dL (0.6-1.0); PHOSPHORUS 3.6 mg/dL (2.5-4.9); POTASSIUM 4.2 mmol/L (3.5-5.1)
[2018-11-23 07:31] VITALS: BP 141/72
[2018-11-23 07:54] VITALS: BP 134/75; BP 139/76
[2018-11-23 07:56] VITALS: BP 113/72
[2018-11-23 08:03] VITALS: BP 141/72
--- NOTE | 2018-11-23 08:54 | EKG ---
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 : 1940 Requested By: Amarjit Rosa Order Number: [id number] MD: Vinod Campbell Measurements Intervals [place] Rate: 98 P: 90 CO: 189 QRS: -68 QRSD: 108 T: 106 QT: 372 QTc: 476 Interpretive Statements Sinus rhythm Atrial premature complex Left anterior fascicular block Poor R wave progression nonspecific T wave abnormality No previous ECGs available for comparison Electronically Signed On 11-23-2018 8:54:16 CDT by Vinod Campbell [email or web address] ��������������������������������������������� <ELECTRONICALLY SIGNED> ���������������������������������������� By: Vinod Campbell MD, [facility] ��������������������������������������������� 11/23/18 0854 1 1 Vinod Campbell MD, [facility] /EPI
[2018-11-23] MEDS ORDERED: CALTRATE-600 W1 EACH PO (13:35)
[2018-11-23] MEDS ORDERED: COLACE100 MG PO (13:35)
[2018-11-23] MEDS ORDERED: MIDODRINE HCL 55 M1 PO (13:35)
[2018-11-23] MEDS ORDERED: SENNA-TIME S T1 EACH PO (13:35)
--- NOTE | 2018-11-23 16:16 | NUR ---
DISCHARGE NOTE: SW reviewed chart and spoke with nursing and attending physician. Pt is medically stable for discharge to [facility]. SW notified [facility] liaison, who confirms they are able to accept pt today. data processing systems project planner coordinated and faxed discharge orders/summary. No additional SW needs identified at this time, but is available to assist should needs arise.
--- NOTE | 2018-11-23 16:17 | EKG ---
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: DAVIN : 1940 Requested By: Amarjit Rosa Order Number: [id number] MD: Vinod Campbell Measurements Intervals [place] Rate: 103 P: 178 VA: 138 QRS: -66 QRSD: 114 T: 115 QT: 403 QTc: 528 Interpretive Statements Sinus tachycardia with first-degree AV block Left anterior fascicular block LVH with secondary repolarization abnormality Poor R wave progression Prolonged QT interval Compared to ECG 11/16/2018 14:26:57 No significant change was found Electronically Signed On 11-23-2018 16:17:37 CDT by Vinod Campbell [email or web address] ��������������������������������������������� <ELECTRONICALLY SIGNED> ���������������������������������������� By: Vinod Campbell MD, [facility] ��������������������������������������������� 11/23/18 1617 2316 2316 Vinod Campbell MD, [facility] /EPI
--- NOTE | 2018-11-23 17:11 | NUR ---
Patient discharged in wheelchair with driver utility worker to senior living facility at approx 1700 this evening. Medicare rights paperwork signed, IV dc'd, telemetry taken off, and all belongings with patient at time of discharge. Chart copy sent with patient.
--- NOTE | 2018-11-23 17:19 | HC ---
[facility] [place] [address] CONSULTATION Name: TIO NIÑO SEPTEMBER Room #: 363-P [facility] IN M.R.#: [id number] Admission: 11/16/18 ������������������ Attend Phys: Zoe Lawrence Discharge: 11/23/18 ������������������ Date of : 38 Report #: [id number] THIS REPORT FOR: //name// CC: ALY physician/PCP Zoe Lawrence DATE OF SERVICE: 11/22/2018 REASON FOR CONSULTATION: I was asked to evaluate concerning right lower lobe pulmonary infiltrate in the setting of congestive heart failure and amyloidosis. HISTORY OF PRESENT ILLNESS: The patient is an 78-year-old with previous history of multiple myeloma and amyloidosis as well as emphysema and previous chest surgery with recurrent effusion on the right. She was recently hospitalized at [facility] with a diagnosis of basilar infiltrate and pneumonia along with edema. She had cardiac workup, found to have diastolic heart failure with normal ejection fraction. She was discharged reportedly on Levaquin and Lasix. After several days at home, she became more confused with hyponatremia developing along with vertigo. She then presented to the Emergency Room for further care, found to have right basilar medial infiltrate along with a partially loculated effusion on the right, small effusion on the left, continued on azithromycin and ceftriaxone. Sputum has been clear. No chest pain. Minimal dyspnea on exertion. No nausea, vomiting or diarrhea. Vertigo has resolved. She has been seen by Oncology as well as Nephrology. Further workup for her myeloma and amyloid is undergoing. PAST MEDICAL HISTORY: Myeloma, amyloidosis, hypertension. Coronary artery disease, status post stenting. Celiac artery disease, spontaneous pneumothorax, cardiac catheterization, chest surgery with chest tube placed. Surgery on her foot: Hysterectomy, cholecystectomy. FAMILY HISTORY: Noncontributory. SOCIAL HISTORY: . No tobacco or alcohol use. ALLERGIES: BEE VENOM, DOXYCYCLINE, STATINS, CLINDAMYCIN, LATEX, LEVOFLOXACIN, CONTRAST DYE, ADHESIVE. MEDICATIONS: As noted on her MAR including azithromycin and ceftriaxone. REVIEW OF SYSTEMS: She still has generalized weakness, although she is beginning to improve, her dizziness has resolved. RESPIRATORY: As noted above with clear sputum, although thick. CARDIOVASCULAR: As above with no palpitations or chest pain. GASTROINTESTINAL: Negative. GENITOURINARY: Negative. [facility] [address] [place] [address] CONSULTATION Name: TIO NIÑO SEPTEMBER Room #: 363-P DIS IN M.R.#: [id number] Admission: 11/16/18 ������������������ Attend Phys: Zoe Lawrence Discharge: 11/23/18 ������������������ Date of : 38 Report #: [id number] SKIN: Negative. NEUROLOGIC: As above. PSYCHIATRIC: Negative. HEMATOLOGIC: As above. JOINT: Negative. Full 10-point review was negative other than what has been described above. PHYSICAL EXAMINATION: VITAL SIGNS: Afebrile and hemodynamically stable. GENERAL: She is alert and cooperative and pleasant, in no acute distress. SKIN: Without rash or decubitus. No palpable adenopathy. HEENT: Eyes without scleral icterus. Mouth without mucositis. NECK: Supple, with no thyromegaly or mass. LUNGS: Decreased breath sounds in the right base posteriorly. No consolidation. HEART: Regular, without murmur, gallop or rub. ABDOMEN: Soft, nontender, no hepatosplenomegaly or mass. GENITORECTAL: Not performed. EXTREMITIES: With no peripheral edema currently. JOINTS: Without synovitis. BACK: Nontender. No CVA tenderness. NEUROLOGIC: Cranial nerves intact. Strength in the upper and lower extremities was normal with normal sensation to touch. PSYCHIATRIC: Mood normal. LABORATORY STUDIES: Hemoglobin 13.9, WBC 12.4, platelet count 278,000. Creatinine 0.8. Procalcitonin 0.06. CT scan of the chest showed medial right lower lobe infiltrate with loculated effusion, small on the right. IMPRESSION: An 78-year-old with multiple myeloma, amyloidosis, presents with congestive heart failure that is now better controlled. She was diagnosed with suspected pneumonia on the right, but in retrospect, this is likely a chronic infiltrate in the right lower lobe medially, associated with persistent partially loculated effusion. This has been known for the last several years. Her white count now is normal. She is having no fevers. Hyponatremia is now better, but still persisting. Continues with orthostatic hypotension. RECOMMENDATIONS: Continuing, the patient was on antibiotic therapy at [facility] and is now day #6 of her treatment here, I feel it is reasonable to discontinue antibiotics and observe as we continue to treat for congestive heart failure and continue workup for myeloma and amyloidosis. ��������������������������������������������� <ELECTRONICALLY SIGNED> ���������������������������������������� By: Ian Montiel MD ��������������������������������������������� 11/23/18 1719 1858 [id number] Ian Montiel MD /nt
[2018-11-24 17:11] LABS: GLOBULIN TOTAL 2.3 g/dL (2.2-3.9); M-SPIKE Not Observed g/dL (Not Observed)
== END 2018-11-23 17:17 | DRG 291 ==
LOC: ER 22:51 → 3W 11-16 04:26 → EROBS 11-16 04:26 → 3W 11-16 05:48
PROVIDERS: Emergency Medicine; Hospitalist; Internal Medicine; Nurse Practitioner Family; ADMIT Hospitalist
DX: I11.0 Hypertensive heart disease with heart failure (principal); J18.9 Pneumonia, unspecified organism; E43 Unspecified severe protein-calorie malnutrition; E87.1 Hypo-osmolality and hyponatremia; J93.83 Other pneumothorax; E85.9 Amyloidosis, unspecified; I50.33 Acute on chronic diastolic (congestive) heart failure; I42.9 Cardiomyopathy, unspecified; R07.89 Other chest pain; I16.0 Hypertensive urgency; I25.10 Atherosclerotic heart disease of native coronary artery without angina pectoris; R79.89 Other specified abnormal findings of blood chemistry; J43.9 Emphysema, unspecified; I95.1 Orthostatic hypotension; E53.8 Deficiency of other specified B group vitamins; I08.1 Rheumatic disorders of both mitral and tricuspid valves; H93.19 Tinnitus, unspecified ear; E87.6 Hypokalemia; Z90.710 Acquired absence of both cervix and uterus; Z95.5 Presence of coronary angioplasty implant and graft; Z85.89 Personal history of malignant neoplasm of other organs and systems; Z79.899 Other long term (current) drug therapy; Z79.82 Long term (current) use of aspirin; Z88.8 Allergy status to other drugs, medicaments and biological substances; Z91.030 Bee allergy status; Z91.041 Radiographic dye allergy status; Z91.048 Other nonmedicinal substance allergy status; Z82.3 Family history of stroke; Z87.01 Personal history of pneumonia (recurrent); Z90.49 Acquired absence of other specified parts of digestive tract
CPT/HCPCS: 10879

== ENCOUNTER 2018-12-11 17:01 | Emergency (ER) | payer OTHER ==
[~2018-12-11] VITALS: Ht 162.6 cm; Wt 54.4 kg
--- NOTE | ~2018-12-11 | EMS ---
[address] [address] EMS Patient Care Report Name: TIO NIÑO FAHAD Room #: DEP SATISH Trujillo#: [id number] Admission: 12/11/18 Attend Phys: Discharge: 12/12/18 Date of : 38 Report #: [id number] THIS REPORT FOR: //name// Report Transmitted: 12/13/2018 08:26 EMS Care Summary [facility] MED-ACT Incident [id number] @ 12/11/2018 16:14 Incident Location [address] [address] Patient TIO NIÑO Female, 78 Years 1940 Patient Address [address] [place] [address] [place] [address] Patient History Chronic Obstructive Pulmonary Disease (COPD),Pneumonia, Patient Allergies Latex allergy,Doxycycline,Prednisone, Patient Medications Loratadine, Ativan, Metoprolol, ASA, Furosemide, Midodrine, Chief Complaint chest pain for several days Disposition Transported No Lights/Ubly Dispatch Reason Chest Pain (Non-Traumatic) Transported To [facility] Narrative uPON ARRIVAL PT WAS SITTING ON A CHAIR, PRESENTED W/O DISTRESS. Pt in rehab facility for treating pneumonia. Pt stated she had the chest discomfort for days. Chest pain increased with deep breaths, and upon palpation to the chest [address] [address] EMS Patient Care Report Name: TIO NIÑO Room #: DEP SATISH Trujillo#: [id number] Admission: 12/11/18 Attend Phys: Discharge: 12/12/18 Date of : 38 Report #: [id number] wall. Pt pain does not pt radiate, pain 7 out of 10, burn sensation and pressure. Pt denied any difficulty of breathing or dizziness. Initial Vitals @16:45P: 106,BP: 162/62,SpO2: 93, @16:35P: 109, @16:27P: 106,R: 18,BP: 155/102,Pain: 6/10,Glucose: 116,SpO2: 99,GA Suspected: false Assessments @16:28MENTAL:No Abnormalities,SKIN:No Abnormalities,HEENT:Head/Face: No Abnormalities,Eyes: No Abnormalities,Neck/Airway: No Abnormalities,LUNG SOUNDS:General: No Abnormalities,Left Upper: No Abnormalities,Right Upper: No Abnormalities,Left Lower: No Abnormalities,Right Lower: No Abnormalities,ABDOMEN:General: No Abnormalities,Left Upper: No Abnormalities,Right Upper: No Abnormalities,Left Lower: No Abnormalities,Right Lower: No Abnormalities,PELVIS//GI:No Abnormalities,EXTREMITIES:Left Arm: No Abnormalities,Right Arm: No Abnormalities,Left Leg: No Abnormalities,Right Leg: No Abnormalities,PULSE:NEURO:No Abnormalities, Impression Chest Pain, Other (Non-Cardiac) Procedures @16:3512-Lead ECG Timeline 16:13,Call Received 16:13,Psap Call 16:14,Dispatched 16:14,En Route 16:22,On Scene 16:26,At Patient 16:27,BP: 155/102 M,PULSE: 106,RR: 18 R,SPO2: 99 Ox,ETCO2: ,B,PAIN: 6,GCS: , 16:35,12-Lead ECG, 16:35,BP: / M,PULSE: 109,RR: R,SPO2: Ox,ETCO2: ,BG: ,PAIN: ,GCS: , 16:37,Depart Scene 16:45,BP: 162/62 M,PULSE: 106,RR: R,SPO2: 93 Ox,ETCO2: ,BG: ,PAIN: ,GCS: , 16:53,At Destination 17:13,Call Closed Disclaimer v1.1 Copyright 2019 [employer] This EMS Care Summary contains data elements from the applicable legal record (which may be displayed differently). It is designed to provide pertinent [address] [place] [address] EMS Patient Care Report Name: TIO NIÑO FAHAD Room #: DEP SATISH Trujillo#: [id number] Admission: 12/11/18 Attend Phys: Discharge: 12/12/18 Date of : 38 Report #: [id number] information for the following purposes: continuity of care, clinical quality, and state data reporting. The complete legal record is available to ED staff and administrators of the receiving hospital in [employer]'s Patient Tracker. All data is provided "as is."
[~2018-12-11 17:01] MED LIST changes: +CALTRATE-600 W1 EACH PO; +CENTRUM SILVER1 EAC4 PO; +COLACE100 MG PO; +MIDODRINE HCL 55 M1 PO; +MUCINEX600 MG PO; +PEPCID20 MG PO; +PEPTO-BISMOL1 TAB PO; +SENNA-TIME S T1 EACH PO
[2018-12-11 17:36] LABS: ANION GAP 7 mmol/L (7-16); BUN 14 mg/dL (7-18); CALCIUM 11.4 mg/dL (8.5-10.1); CHLORIDE 96 mmol/L (98-107); CO2 26 mmol/L (21-32); GLUCOSE 106 mg/dL (74-106); POTASSIUM 3.7 mmol/L (3.5-5.1); SODIUM 129 mmol/L (136-145)
[2018-12-11 17:44] LABS: ABSOLUTE NEUTROPHILS 5.7 thou/uL (1.4-8.2); BASOPHILS 0.9 % (0.0-2.0); EOSINOPHILS 0.7 % (0.0-3.0); HEMATOCRIT 40.9 % (37.0-47.0); HEMOGLOBIN 14.1 gm/dL (12.0-15.0); LYMPHOCYTES 16.3 % (24.0-44.0); MCH 33.1 pg (26.0-34.0); MCHC 34.4 g/dL (28.0-37.0); MCV 96.3 fL (80.0-100.0); MONOCYTES 8.6 % (1.0-8.0); PLATELET COUNT 474 thou/uL (150-400); POLYS 73.5 % (36.0-66.0); RBC 4.25 mil/uL (4.20-5.00); RDW 15.2 % (10.5-14.5); WBC 7.7 thou/uL (4.0-11.0)
[2018-12-11 17:47] LABS: ALBUMIN 3.3 g/dL (3.4-5.0); SGOT 34 U/L (15-37); SGPT 27 U/L (30-65); TOTAL BILIRUBIN 0.5 mg/dL (<0.1-1.0); TOTAL PROTEIN 6.4 g/dL (6.4-8.2); TROPONIN-I <0.06 ng/mL (<0.06)
[2018-12-11 17:57] LABS: ALBUMIN 3.3 g/dL (3.4-5.0); DIRECT BILIRUBIN 0.2 mg/dL (<0.1-0.3); TOTAL BILIRUBIN 0.5 mg/dL (<0.1-1.0)
[2018-12-11 23:57] VITALS: BP 149/72
--- NOTE | 2018-12-12 10:46 | EKG ---
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: : 1940 Requested By: Perlita Mac Order Number: [id number] MD: Vinod Campbell Measurements Intervals [place] Rate: 119 P: 93 OK: 192 QRS: -62 QRSD: 112 T: 152 QT: 317 QTc: 447 Interpretive Statements Sinus tachycardia Paired ventricular premature complexes Leftward axis Poor R wave progression Compared to ECG 11/23/2018 07:12:09 Ventricular premature complex(es) now present Electronically Signed On 12-12-2018 10:46:17 CDT by Vinod Campbell [email or web address] <ELECTRONICALLY SIGNED> By: Vinod Campbell MD, [facility] 12/12/18 1046 1707 170 Vinod Campbell MD, [facility] /EPI
== END 2018-12-12 01:05 | disposition home or self-care (01) ==
LOC: ER 17:01
PROVIDERS: Emergency Medicine
DX: R07.89 Other chest pain (principal); R06.00 Dyspnea, unspecified; I11.0 Hypertensive heart disease with heart failure; I50.9 Heart failure, unspecified; I42.9 Cardiomyopathy, unspecified; J44.9 Chronic obstructive pulmonary disease, unspecified; I25.10 Atherosclerotic heart disease of native coronary artery without angina pectoris; Z88.1 Allergy status to other antibiotic agents; Z91.040 Latex allergy status; Z88.8 Allergy status to other drugs, medicaments and biological substances; Z91.041 Radiographic dye allergy status; Z90.710 Acquired absence of both cervix and uterus; Z90.49 Acquired absence of other specified parts of digestive tract

== ENCOUNTER 2019-05-25 10:15 | Inpatient (IN) | payer OTHER ==
[~2019-05-25] VITALS: Ht 162.6 cm; Wt 64.0 kg
--- NOTE | ~2019-05-25 | EKG ---
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
--- NOTE | ~2019-05-25 | EEG ---
[facility] [place] [place] [address] ELECTROENCEPHALOGRAM Name: TIO NIÑO Room #: 355-P ADM IN M.R.#: [id number] Admission: 05/25/19 Attend Phys: Zoe Torres Discharge: Date of : 38 Report #: [id number] THIS REPORT FOR: //name// CC: FAM physician/PCP Zoe De La Paz DATE OF SERVICE: 05/25/2019 This patient is being evaluated for an episode of syncope. EEG was done by placing the electrodes by standard 10-20 system of electrode placement. Both referential and sequential montages were used during this recording. Background activity in this patient's EEG is about 11 Hz and 30 microvolt. The patient became drowsy and that is associated with bilateral slowing and vertex sharp waves. Photic stimulation is unremarkable. Throughout the record, no active epileptiform activity was noticed. IMPRESSION: This patient's EEG is within normal limit. Thank you very much for this referral. By: [id number] Trevor Gutierrez MD /nt
--- NOTE | ~2019-05-25 | EKG ---
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 : 1940 Requested By: Alvarado Khoury Order Number: [id number] MD: Measurements Intervals [place] Rate: 109 P: 0 IA: 181 QRS: -77 QRSD: 124 T: 125 QT: 363 QTc: 489 Interpretive Statements Sinus tachycardia Multiple ventricular premature complexes Nonspecific IVCD with LAD Probable anteroseptal infarct, recent Compared to ECG 12/11/2018 17:07:06 Intraventricular conduction delay now present Myocardial infarct finding now present Left-axis deviation no longer present Poor R-wave progression no longer present [email or web address] By: [id number] [place] /EPI
[2019-05-25 10:15] VITALS: BP 160/88
[2019-05-25 10:45] LABS: HEMATOCRIT 40.8 % (37.0-47.0); HEMOGLOBIN 13.5 gm/dL (12.0-15.0); MCH 32.5 pg (26.0-34.0); MCHC 32.9 g/dL (28.0-37.0); MCV 98.6 fL (80.0-100.0); RBC 4.14 mil/uL (4.20-5.00); RDW 14.4 % (10.5-14.5); WBC 8.6 thou/uL (4.0-11.0)
[2019-05-25 10:52] LABS: ANION GAP 3 mmol/L (7-16); BUN 20 mg/dL (7-18); CALCIUM 9.4 mg/dL (8.5-10.1); CHLORIDE 96 mmol/L (98-107); CO2 30 mmol/L (21-32); CREATININE 0.9 mg/dL (0.6-1.0); GLUCOSE 88 mg/dL (74-106); SODIUM 129 mmol/L (136-145)
[2019-05-25 11:01] LABS: MAGNESIUM 1.8 mg/dL (1.8-2.4); TROPONIN-I <0.06 ng/mL (<0.06)
[2019-05-25 11:24] LABS: ABSOLUTE NEUTROPHILS 5.9 thou/uL (1.4-8.2); ANISOCYTOSIS SLIGHT
[2019-05-25 11:28] LABS: PLATELET COUNT 301 thou/uL (150-400)
[2019-05-25] MEDS ORDERED: LOPRESSOR50 MG PO (12:04)
[2019-05-25] MEDS ORDERED: MELATONIN3 M1 PO (12:04)
[2019-05-25] MEDS ORDERED: LOPERAMIDE 2 MG2 M1 PO (12:04)
[2019-05-25] MEDS ORDERED: POTASSIUM20 PO (12:05)
[2019-05-25] MEDS ORDERED: GAS RELIEF80 MG PO (12:06)
[2019-05-25 12:08] VITALS: BP 161/86
[2019-05-25 13:31] VITALS: BP 136/72
[2019-05-25 14:07] VITALS: BP 164/87
[2019-05-25 15:06] LABS: CHOLESTEROL 208 mg/dL (<200); HDL CHOLESTEROL 64 mg/dL (>40); LDL CHOLESTEROL 134 mg/dL (<100); TC:HDL 3.3 Ratio (Not establshd); TRIGLYCERIDE 53 mg/dL (<150); VLDL 11 mg/dL (<40)
[2019-05-25 15:32] LABS: TSH 0.841 uIU/mL (0.358-3.740)
[2019-05-25 15:58] VITALS: BP 137/74
--- NOTE | 2019-05-25 18:21 | NUR ---
PATIENT ADMITTED TO ROOM. SHE DID COMPLAIN OF PAIN AND PRN PAIN MEDICATION ADMINISTERED. PAIN CONTROLLED WITH TYLENOL. SHE FELL AT HOME AND INJURED HER COCCYX. SHE CAN ONLY LIE ON HER SIDE. RESPIRATIONS ARE NON LABORED. WILL CONT WITH PLAN OF CARE.
[2019-05-25 19:48] VITALS: BP 130/59
[2019-05-26] VITALS (31 sets, daily range): BP systolic 98–164; BP diastolic 47–103
--- NOTE | 2019-05-26 04:06 | NUR ---
Pt. requested her allergy med, symbicort, antacid and pain med that is non narcotic. UTILITY BAGGER notified and orders received. Lidocaine patch applied on lower back, toradol IV and tylenol also given with some relief. Maintaining O2 sat greater than 90% on 2L/NC. RT gave her pulmicort in place of home symbicort. Hypoallergenic patches used per pt. request. Up with assist to commode using gait belt. Pt. stated she felt nauseous when she got up and felt like she was going to pass out. She also c/o stomach being bloated and upset. Tums given. Had small formed bm and voided. Once back to bed she stated she is not nauseous anymore and does not need prn med. Also refused yellow socks and SCD's. Bed alarm on for safety. Scattered abrasions and bruising from fall at home. Will continue to monitor.
[2019-05-26 11:36] LABS: BE(vivo) -5.9 mmol/L (-2 to +3); HCO3 19.3 mmol/L (22.0-26.0); PCO2 37.3 mmHg (35.0-45.0); PO2 131.7 mmHg (80.0-100.0); pH 7.332 (7.360-7.450); sO2 98.5 % (92.0-98.0)
--- NOTE | 2019-05-26 12:10 | NUR ---
CODE SHALINI CALLED FOR PT FOR AGONAL BREATHING, MIKEL DOWN, PULSE NOT FELT BY STAFF THAT WAS IN THE ROOM AT THE TIME OF THE EVENT. ONLY A COUPLE OF COMPRESSIONS ADMINISTERED BUT PT WAS RESPONSIVE TO COMPRESSIONS WITH GRIMACE AND MOANING, SEE FLOWSHEET AND RAPID RESPONSE CHARTING FOR FURTHER DETAILS. PT TRANSFERED TO ICU [address] CHEY TELLO.
--- NOTE | 2019-05-26 13:26 | NUR ---
Pt TRANSFERRED TO ICU AFTER EPISODE OF AGONAL BREATHING AND STAFF UNABLE TO PALPATE A PULSE. WILL NEED NEW PT ORDERS WHEN APPROPRIATE IN ORDER TO RESUME PT INTERVENTIONS D/T TRANSFER TO HIGHER LEVEL OF CARE.
[2019-05-26 13:30] LABS: INR 1.1; PROTIME 11.5 Seconds (9.3-11.4)
--- NOTE | 2019-05-26 14:28 | 2DMMODE ---
[facility] [address] [employer] [place] [address] 2 D/M-MODE ECHOCARDIOGRAM Name: TIO NIÑO FAHAD Room #: 250-P ADM IN M.R.#: [id number] Admission: 05/25/19 Attend Phys: Zoe Lawrence Discharge: Date of : 38 Report #: [id number] THIS REPORT FOR: cc: ALY - Randi family physician/PCP ALY - Randi family physician/PCP Vinod Campbell MD [facility] ~ THIS REPORT FOR: //name// APPROVED REPORT Study performed: 05/26/2019 12:52:27 EXAM: Comprehensive 2D, Doppler, and color-flow Echocardiogram Patient Location: ICU Room #: 250 Status: routine BSA: 1.56 HR: 84 bpm BP: 127/62 mmHg Rhythm: Irregular Other Information Study Quality: Adequate/not all measurements taken. Technically limited study due to limited mobility. Indications Syncope. Hx: Amyloid, CAD, stent, HTN. 2D Dimensions RVDd: 42.37 mm IVSd: 16.00 (7-11mm) LVOT Diam: 18.74 (18-24mm) LVDd: 35.31 mm PWd: 17.07 (7-11mm) LVDs: 27.11 (25-40mm) Aortic Root: 31.83 mm Volumes Left Atrial Volume (Systole) Single Plane 4CH: 44.92 mL Aortic Valve LVOT Max P.26 mmHg [facility] [address] [place] [address] 2 D/M-MODE ECHOCARDIOGRAM Name: TIO NIÑO SEPTEMBER Room #: 250-P ADM IN M.R.#: [id number] Admission: 05/25/19 Attend Phys: Zoe Sullivan Discharge: Date of : 38 Report #: [id number] LVOT Max V: 0.56 m/s Mitral Valve MV Decel. Time: 124.57 ms MV E Max Natanael.: 0.95 m/s Pulmonary Valve PV Peak Natanael.: 0.42 m/s PV Peak Gr.: 0.71 mmHg Tricuspid Valve TR Peak Natanael.: 3.99 m/s RAP Estimate: 5.00 mmHg TR Peak Gr.: 64.00 mmHg PA Pressure: 69.00 mmHg Left Ventricle The left ventricle is normal size. There is normal LV segmental wall motion. Moderate concentric left ventricular hypertrophy. Left ventricular systolic function is at the lower limits of normal. LVEF is 50-55%. This study is not technically sufficient to allow evaluation of the LV diastolic function. Right Ventricle The right ventricle is normal size. Right ventricle is hypokinetic. Atria Left atrium is mildly dilated. Right atrium is mildly dilated. Aortic Valve Aortic valve is calcified, trileaflet No aortic regurgitation is present. There is no aortic valvular stenosis. Mitral Valve Mild mitral annular calcification. Mild mitral regurgitation. Tricuspid Valve The tricuspid valve is normal in structure. Mild tricuspid regurgitation. Estimated PAP is 65-70mmHg. Pulmonic Valve Pulmonic valve is not well visualized. Mild pulmonic regurgitation. Great Vessels [facility] [address] [place] [address] 2 D/M-MODE ECHOCARDIOGRAM Name: TIO NIÑO SEPTEMBER Room #: 250-P ADM IN M.R.#: [id number] Admission: 05/25/19 Attend Phys: Zoe Sullivan Discharge: Date of : 36 Report #: [id number] The aortic root is normal in size. Ascending aorta is not well visualized. IVC is normal in size and collapses >50% with inspiration. Pericardium There is no pericardial effusion. Left and right pleural effusions noted. <Conclusion> Left ventricular systolic function is at the lower limits of normal. Moderate concentric left ventricular hypertrophy. LVEF is 50-55%. Both atria are mildly dilated. Aortic valve is calcified, trileaflet. No aortic regurgitation or stenosis Mild mitral annular calcification. Mild mitral regurgitation. Mild tricuspid regurgitation. Estimated pulmonary artery pressure of 65-70mmHg. There is no pericardial effusion. <ELECTRONICALLY SIGNED> By: Vinod Campbell MD, [facility] 05/26/19 1427 142 142 Vinod Campbell MD, FACC /INF
--- NOTE | 2019-05-26 16:57 | NUR ---
SPOKE WITH PT REGARDING PPM POST PROCEDURE CARE. PT IS CONCERNED ABOUT BEING ABLE TO CARE FOR HERSELF AFTER THE PROCEDURE D/T ARM IMMOBILIZER AND RESTRICITIONS. PT STATES SHE LIVES ALONE AND HAS NO FAMILY TO HELP OUT. PT STATES SHE DOES NOT USE A WALKER OR A CANE AND IS INDEPENDENT NORMALLY BUT IS AFRAID SHE WOULD NOT BE ABLE TO BATHE OR COOK FOR SELF. WANTS TO SPEAK WITH SW REGARDING 24 HOUR CARE WITH MEDICARE PAYMENT OR REHAB/SNF BUT DOESN'T HAVE ANYONE TO BRING HER CLOTHES FROM HOME. PT STATES SHE DOESN'T THINK THAT HOME HEALTH WOULD BE ENOUGH ASSISTANCE. STATES SHE IS SCARED TO THINK ABOUT SOMETHING HAPPENING IF SHE GOT THE PACEMAKER BUT IS ALSO SCARED TO THINK THAT ANOTHER INCIDENT WOULD HAPPEN IF SHE DID NOT GET THE PACEMAKER. PT STATES SHE HAS A LOT OF THINGS TO THINK ABOUT AND IS CONSIDERING IF SHE WANTS TO IMPOSE ON HER NEIGHBOR TO BRING HER SOME BELONGINGS IF SHE WERE TO GO TO A FACILITY. SHE SAYS SHE REALLY DOESN'T WANT TO IMPOSE ON NEIGHBOR BUT SHE WILL THINK ABOUT IT IF NEED BE. PT IS VERY ANXIOUS AND SCARED. INSTRUCTED PT TO THINK ABOUT IT AND IF SHE HAS ANY MORE QUESTIONS TO LET RN KNOW.
--- NOTE | 2019-05-26 18:38 | NUR ---
PT C/O PROBLEMS VOIDING SINCE ARRIVAL TO HOSPITAL. STATES SHE FEELS LIKE IT TAKES HER A LONG TIME TO START GOING AND THEN SHE FEELS LIKE SHE ONLY DRIBBLES. PT VOIDED 100 MLS OF DARK YELLOW/DANIELLE URINE.
--- NOTE | 2019-05-26 18:41 | NUR ---
PT HAS HAD NO FURTHER INSTANCES OF BRADYCARDIA OR UNRESPONSIVENESS SINCE TRANSFER TO ICU. DOPAMINE WAS NEVER STARTED IT WAS TO KEEP PULSE >60 AND SBP >90 AND SHE HAS MAINTAINED THAT ON HER OWN.
--- NOTE | 2019-05-26 20:34 | NUR ---
Care assumed at 1915. Pt alert, oriented x4 but very fidgety and anxious. Tylenol given x1 for c/o headache with partial relief obtained. Monitor sinus rhythm, sinus tach 90's to low 100's, with BBB and occasional PVC's. Pt also c/o of gastric upset, zofran and pepcid given with some relief obtained.
[2019-05-27] VITALS (15 sets, daily range): BP systolic 69–154; BP diastolic 40–82
[2019-05-27 05:56] LABS: ALBUMIN 3.1 g/dL (3.4-5.0); CALCIUM 8.5 mg/dL (8.5-10.1); MAGNESIUM 1.8 mg/dL (1.8-2.4); PHOSPHORUS 3.2 mg/dL (2.5-4.9); POTASSIUM 4.4 mmol/L (3.5-5.1)
--- NOTE | 2019-05-27 06:16 | NUR ---
No episodes of bradycardia or heart block this shift. Pt has not signed permit for permanent pacemaker yet since she has some questions she wishes to discuss with Dr. Mcghee first, mostly in relation to discharge planning. Pt still feels weak and SOA when dangling at bedside or up to commode. Pt is extremely worried about going home since she lives alone and has no support for assistance with ADL's after pacemaker placement. Case management has been consulted.
--- NOTE | 2019-05-27 10:06 | NUR ---
pt has allergy to contrast dye, states it just makes her itchy and nauseous. paged dr mckenna, he will order some premedications.
--- NOTE | 2019-05-27 10:27 | NUR ---
PT VERY RELUCTANT TO TAKE ANY PAIN MEDICATIONS, PT DOES HAVE LIDOCAINE PATCH ON LOWER BACK, STATES SHE IS COMFORTABLE UNTIL SHE MOVES AND THEN THE PAIN STARTS. REPOSITIONING TOLERATED. PT ROLLS AROUND IN BED ON HER OWN WITH SOME DIFFICULTY. PT GO UP TO BSC WITH RN AND THEN ASKED TO STAND FOR A MINUTE STATING THAT IT HELPED EASE THE PRESSURE.
--- NOTE | 2019-05-27 12:02 | NUR ---
PT REFUSED CTA OF CHEST, STATES SHE IS IN TOO MUCH PAIN TO DO IT.
--- NOTE | 2019-05-27 12:09 | NUR ---
PT OFF UNIT FOR PPM INSERTION AT 1130
--- NOTE | 2019-05-27 14:07 | NUR ---
INITIAL ASSESSMENT: Pt evaluated for d/c planning needs. Reviewed chart and spoke with nurse. Pt is currently having pacemaker placed. Pt lives in independent apartment at [facility]. Pt has concerns about returning home with arm restrictions after pacemaker placement. Pt has been to [facility] in the past, and told nurse she does not want to return there. Pt will need to be evaluated by PT and OT prior to d/c. Will remain available to assist as needed and make necessary referrals.
--- NOTE | 2019-05-27 15:00 | NUR ---
REPORT GIVEN TO MARK SALGUERO
--- NOTE | 2019-05-27 17:10 | NUR ---
PT HAD PACEMAKER PLACEMENT. PACEMAKER INCISION C/D/I WITH DERMABOND ON THE LEFT CHEST. IMMOBILIZER INTACT ON LEFT ARM. VSS. ORDERS NOTED. NSR ON TELE. WILL CONTINUE TO MONITOR.
[2019-05-28 05:06] VITALS: BP 150/81
[2019-05-28 07:15] VITALS: BP 168/67
--- NOTE | 2019-05-28 07:52 | NUR ---
ASSUME CARE 1900. PT/VITALS STABLE. INTERMITTENT COCCYX AND LEFT SHOULDER PAIN ESPECIALLY WITH MOVEMENTS. MODERATE TOLERANCE TO ACTIVITY NOTED. ASSESSMENT CHARTED. PROGRESING WELL WITH POC. PACEMAKER SITE CDI WITH BRUISING NOTED BUT NO HEMATOMA. PLAN IS A POSSIBLE DISCHARGE WITHIN A FEW DAYS AND PAIN MANAGEMENT FOR COCCYX FRACTURE. WILL CONTINUE TO MONITOR AND FOLLOW WITH POC
[2019-05-28 08:41] LABS: ALBUMIN 3.2 g/dL (3.4-5.0); CALCIUM 8.7 mg/dL (8.5-10.1); CREATININE 0.8 mg/dL (0.6-1.0); PHOSPHORUS 3.2 mg/dL (2.5-4.9); POTASSIUM 4.3 mmol/L (3.5-5.1)
[2019-05-28 15:35] VITALS: BP 162/70
--- NOTE | 2019-05-28 19:00 | NUR ---
ASSUMED CARE 0700, ALERT X4, PAIN MANAGED WITH MEDICATIONS, VS STABLE. UP WITH STAND BY ASSIST FOR BATHROOM. NO BM NOTED AT THIS TIME. LEFT ARM IMMOBOLIZER IN PLACE/POST PACEMAKER PLACED 05/27/19. PT TO DC TO [facility] THURSDAY. FALL PRECAUTION IN PLACE. CALLS APPROPRIATLEY.
[2019-05-28 19:44] VITALS: BP 154/62
--- NOTE | 2019-05-29 06:41 | NUR ---
ASSUME CARE 1900. PT/VITALS STABLE. INTERMITTENT LOWER BACK PAIN NOTED WITH RELIEF FROM TYLENOL/TORADOL. SR/ST ON MONITOR. DIARRHEA NOTED THROUGH THE NIGHT. PT ON SENNA/DOCUSATE. UP TO BATHROOM STB ASSIST. TOLERATES ACTIVITY WELL. ASSESSMENT CHARTED. PROGRESSING WELL WITH POC. PACEMAKER SITE BRUISED BUT NO HEMATOMA. SITE IS SLIGHTLY RAISED. PLAN IS POSSIBLE REHAB ON THURSDAY. PT WORKING TOWARDS THIS GOAL. WILL CONITNUE TO MONITOR AND FOLLOW WIHT POC
[2019-05-29 07:30] VITALS: BP 135/64
[2019-05-29 07:40] VITALS: BP 135/71
[2019-05-29 11:15] VITALS: BP 143/64
[2019-05-29 15:50] VITALS: BP 146/80
[2019-05-29 19:24] VITALS: BP 136/71
--- NOTE | 2019-05-29 19:33 | NUR ---
ASSUMED CARE AT 0700, SHIFT ASSESMENT DONE, MEDS GIVEN, VSS. REPORTED PAIN, PRN PAIN MEDS GIVEN. VSS. PT VERY TIRED TODAY, SLEPT UNTIL 1500. THINKS SHE HAS GI BUG. HAD 2 BM FOR THIS SHIFT. APPETITE VERY POOR. REMAINS ON 2LNC. WILL CONTINUE TO ASSESS AND ASSIST WITH ADLs NEEDED.
--- NOTE | 2019-05-30 01:09 | NUR ---
ASSESSMENTS CHARTED, MEDS GIVEN CHARTED. PATIENT RESTING IN BED DURING SHIFT. HAS +2 EDEMA BILATERAL LOWER EXTREMITIES. POST ICD PLACEMENT ON THURSDAY. ON 2 LITERS NASAL CANNULA. UP WITH STANDBY ASSIST TO RESTROOM. PATIENT DID A SELF WASH UP WITH ASSISTANCE FOR HER BACK. SURGICAL INCISION SITE IS WELL APPROXIMATED BRUISED AND EDEMATOUS. PATIENT PUT IMMOBILIZER BACK ON WHILE SLEEPING. C/O PAIN IN COCCYX AREA DUE TO FRACTURE. MEDS GIVEN CHARTED. FALL PRECAUTIONS IN PLACE.
[2019-05-30 03:51] VITALS: BP 145/81
[2019-05-30 07:20] VITALS: BP 151/77
--- NOTE | 2019-05-30 12:25 | NUR ---
FAXED REFERRAL TO [facility] SPOKE WITH CHAD ROWELL SHE RECEIVED REFERRAL AND CAN ACCEPT. ANTICIPATE DC TOMORROW.
--- NOTE | 2019-05-30 15:33 | NUR ---
Spoke with patient regarding dc planning and need for post acute care. patient in agreement and requests referral to [facility]. Referral sent and they are accepting. Updated patient and her friend.
[2019-05-30 16:00] VITALS: BP 142/68
[2019-05-30 17:45] VITALS: BP 153/5
[2019-05-30 17:47] VITALS: BP 170/97
--- NOTE | 2019-05-30 20:01 | NUR ---
ASSUMED CARE AT 0700, SHIFT ASSESSMENT DONE, MEDS GIVEN. PT REPORTED PAIN, TYLENOL GIVEN WITH NO RELIEF. DR DIAS NOTIFED ABOUT PAIN. ORDER RECEVIED FOR ULTRAM, 100MG GIVEN. PT STARTED REPORTING NAUSEA AND NOT FEELING TIRED AND SLEEPY. ASKED IF THIS NURSE CAN GIVE NAUSEA MED BUT SHE SAID DOES NOT WANT ANY MORE MEDICATION. NSR ON TELE, PACEMAKER SITE IS CLEAN, DRY, INTACT, BRUISED. WILL CONTINUE TO ASSES AND ASSIST WITH ADLs NEEDED.
[2019-05-30 20:37] VITALS: BP 162/65
[2019-05-31 05:03] VITALS: BP 145/87
[2019-05-31 08:17] VITALS: BP 141/76
[2019-05-31] MEDS ORDERED: ACETAMINOPHEN325 M1 PO (12:44)
[2019-05-31] MEDS ORDERED: KEFLEX500 M1 PO (12:44)
[2019-05-31] MEDS ORDERED: ENOXAPARIN30 MG/0.1 SUBQ (12:44)
[2019-05-31] MEDS ORDERED: MAXZIDE-25 MG1 EACH PO (12:44)
[2019-05-31 13:01] VITALS: BP 141/76
--- NOTE | 2019-05-31 13:23 | NUR ---
PT DISCHARGING TODAY TO [facility] FAXED DC ORDERS/SUMMARY TO FACILITY SPOKE WITH CHAD ROWELL SHE RECEIVED DC ORDERS AND ARRANGED TRANSPORT BY [facility] FOR 1300 TODAY. FRIEND/FAMILY NOTIFIED BY HANK ENGLAND) OF DC AND TIME OF TRANSPORT. UNIT NOTIFIED AND CHART COPY PER US. RN TO CALL REPORT TO [phone].
--- NOTE | 2019-05-31 13:36 | NUR ---
ASSUMED CARE OF PT AT SHIFT CHANGE. ASSESSMENT CHARTED. MEDS GIVEN PER JUN. VSS. C/O PAIN TREATED WITH TYLENOL, PT DECLINED A STRONGER MED D/T N/V LAST NIGHT. POOR APPETITE. REFUSED WORKING WITH OT. DISCHARGE ORDERS COMPLETE. PT TRANSPORTED TO REHAB FACILITY VIA WHEELCHAIR VAN.
--- NOTE | 2019-05-31 13:41 | NUR ---
patient dc at 1300, chart copied, orders faxed. Notified patients friend MS Barrett of [facility]ia.
--- NOTE | 2019-06-03 11:20 | P ---
[facility] [place] [address] PROCEDURE REPORT Name: TIO NIÑO Room #: 204-P DIS IN M.R.#: [id number] Admission: 05/25/19 Attend Phys: Zoe Lawrence Discharge: 05/31/19 Date of : 36 Report #: [id number] THIS REPORT FOR: cc: ALY - No family physician/PCP ALY - No family physician/PCP Adrián Sawyer MD ~ THIS REPORT FOR: //name// CC: ALY physician/PCP Zoe De La Paz DATE OF SERVICE: 05/27/2019 ICD IMPLANTATION PREOPERATIVE DIAGNOSES: 1. Cardiac amyloidosis. 2. Recurrent syncope. 3. Complete heart block. 4. Ventricular arrhythmias. 5. Nonsustained ventricular tachycardia. PROCEDURE PERFORMED: Dual-chamber ICD implantation. HISTORY OF PRESENT ILLNESS: The patient is an 78-year-old female with multiple recurrent syncopal episodes. She was at home and without warning passed out. She came to the Emergency Room and had a syncopal episode with documented complete heart block. She also has evidence of ventricular ectopy on her environmental monitoring specialist. She had an echocardiogram here showing normal LV size and function, but findings consistent with cardiac amyloidosis. 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 She does have a prior documented cardiac amyloidosis and recently had evaluation during inpatient at in March. She has been last to follow up with for several years in terms of managing her cardiac amyloidosis. Based on her syncope, cardiac amyloidosis and high index suspicious for ventricular arrhythmias, I have recommended that she undergo dual-chamber ICD implantation. ANESTHESIA: The patient underwent MAC anesthesia with no anesthesia related complications. DESCRIPTION OF PROCEDURE: The patient underwent informed consent. We discussed the details of the procedure including the risks, which include but not limited to bleeding, infection, vascular damage, cardiac perforation, pneumothorax. She understood these risks and is willing to proceed. [facility] [address] [place] [address] PROCEDURE REPORT Name: TIO NIÑO SEPTEMBER Room #: 204-P [facility] IN M.R.#: [id number] Admission: 05/25/19 Attend Phys: Zoe Lawrence Discharge: 05/31/19 Date of : 36 Report #: [id number] The patient was brought to EP laboratory in a fasting and sedated state, prepped and draped in a sterile fashion. She received IV vancomycin for antibiotic prophylaxis. A venogram was performed showing patency of left axillary vein. She was pretreated for a known CONTRAST ALLERGY. Lidocaine was injected at the incision site. Incision was made and the pocket was created over the prepectoral fascia. Next, access was obtained twice to left axillary vein using the extrathoracic approach with sheaths positioned in the modified Seldinger technique. Next, a single coil ICD lead was placed in the right ventricular apex and an atrial lead was placed in the right atrial appendage both with adequate pacing and sensing thresholds. Leads were sutured to the prepectoral fascia and the device was connected, tested and found to be functioning normally. The pocket was irrigated with vancomycin. The pocket was closed in 2 layers. Surgical glue was placed under skin layer. The patient awoke neurologically and hemodynamically intact. No complications and no significant bleeding. Implanted device was a [employer] model #[id number], serial #[id number]. The atrial lead was a [employer] model #2088TC, 52 cm, serial #[id number]. The ventricular lead was a [employer], model #7122Q serial #[id number]. The device was programmed to the DDDR 70-130 mode given that the patient likely has a component of autonomic dysfunction. The VT monitor zone was set at 150-180 beats per minute. VT 2 zone was set at 180-220 beats per minute with 3 rounds of burst followed by 3 rounds of ramp followed by max output shocks. The VF zone was set greater than 220 beats per minute with ATP while charging followed by max output shocks. The atrial lead demonstrated P-wave 1.3 millivolts, pacing impedance of 390 ohms, pacing threshold 0.75 volts at 0.5 milliseconds. The RV lead demonstrated R-wave of 11.6 millivolts, pacing impedance 490 ohms and pacing threshold of 1 volt at 0.5 milliseconds. CONCLUSIONS: 1. Successful dual-chamber ICD implantation. 2. Satisfactory atrial and ventricular pacing and sensing thresholds. <ELECTRONICALLY SIGNED> By: Adrián Sawyer MD 06/03/19 1120 [id number] Adrián Sawyer MD /nt
== END 2019-05-31 13:21 | DRG 242 ==
LOC: ER 10:15 → 3W 12:49 → EROBS 12:49 → 3W 13:32 → ICU 05-26 11:45 → 2N 05-27 14:56
PROVIDERS: Emergency Medicine; Internal Medicine Cardiovascular Disease; ADMIT Hospitalist
PROC: B51N1ZZ Fluoroscopy of Left Upper Extremity Veins using Low Osmolar Contrast (ICD-10-PCS; principal; 2019-05-27)
PROC: 0JH606Z Insertion of Pacemaker, Dual Chamber into Chest Subcutaneous Tissue and Fascia, Open Approach (ICD-10-PCS; principal; 2019-05-27)
PROC: 02H63JZ Insertion of Pacemaker Lead into Right Atrium, Percutaneous Approach (ICD-10-PCS; principal; 2019-05-27)
PROC: 02HK3JZ Insertion of Pacemaker Lead into Right Ventricle, Percutaneous Approach (ICD-10-PCS; principal; 2019-05-27)
DX: I44.2 Atrioventricular block, complete (principal); I50.33 Acute on chronic diastolic (congestive) heart failure; S32.2XXA Fracture of coccyx, initial encounter for closed fracture; E87.1 Hypo-osmolality and hyponatremia; I42.9 Cardiomyopathy, unspecified; E85.9 Amyloidosis, unspecified; I25.10 Atherosclerotic heart disease of native coronary artery without angina pectoris; J44.9 Chronic obstructive pulmonary disease, unspecified; I11.0 Hypertensive heart disease with heart failure; E78.5 Hyperlipidemia, unspecified; C80.1 Malignant (primary) neoplasm, unspecified; I47.0 Re-entry ventricular arrhythmia; I47.2 Ventricular tachycardia; F03.90 Unspecified dementia, unspecified severity, without behavioral disturbance, psychotic disturbance, mood disturbance, and anxiety; G47.00 Insomnia, unspecified; K59.00 Constipation, unspecified; I27.20 Pulmonary hypertension, unspecified; F32.9 Major depressive disorder, single episode, unspecified; W18.39XA Other fall on same level, initial encounter; Y93.89 Activity, other specified; Z90.49 Acquired absence of other specified parts of digestive tract; Z95.5 Presence of coronary angioplasty implant and graft; Z90.710 Acquired absence of both cervix and uterus; Y92.89 Other specified places as the place of occurrence of the external cause; Z79.82 Long term (current) use of aspirin; Z79.899 Other long term (current) drug therapy; Z88.1 Allergy status to other antibiotic agents; Z91.041 Radiographic dye allergy status; Z91.040 Latex allergy status; Z91.048 Other nonmedicinal substance allergy status; Y99.8 Other external cause status; Z28.21 Immunization not carried out because of patient refusal

== ENCOUNTER 2019-05-31 16:24 | Inpatient (IN) | payer OTHER ==
[~2019-05-31] VITALS: Ht 152.4 cm; Wt 53.1 kg
--- NOTE | ~2019-05-31 | EKG ---
[facility] [place] [address] ELECTROCARDIOGRAM REPORT Name: TIO NIÑO Room #: [facility]..#: [id number] Admission: 05/31/19 Attend Phys: Discharge: Date of : 36 Report #: [id number] THIS REPORT FOR: cc: ALY - No family physician/PCP ALY - No family physician/PCP Rosalinda Tellez MD ~ THIS REPORT FOR: //name// [facility] ED Test Date: 2019-05-31 Test Time: 16:42:36 Pat Name: TIO NIÑO Department: Room: Gender: F Book Packer: TAO : [id number] Requested By: Alvarado Khoury Order Number: [id number] MD: Measurements Intervals [place] Rate: 109 P: 34 MN: 161 QRS: 260 QRSD: 107 T: 77 QT: 342 QTc: 461 Interpretive Statements Sinus tachycardia Ventricular trigeminy LAD, consider left anterior fascicular block Probable lateral infarct, age indeterminate Anteroseptal infarct, old Compared to ECG 05/26/2019 11:37:22 Ventricular premature complex(es) now present Sinus rhythm no longer present Intraventricular conduction delay no longer present Myocardial infarct finding still present Myocardial infarct finding still present [email or web address] By: 41 41 Epiphany Epiphany, /MENDY
[~2019-05-31 16:24] MED LIST changes: +ENOXAPARIN30 MG/0.1 SUBQ; +GAS RELIEF80 MG PO; +KEFLEX500 M1 PO; +LOPRESSOR50 MG PO; +MAXZIDE-25 MG1 EACH PO; +MELATONIN3 M1 PO; +POTASSIUM20 PO
[2019-05-31 16:25] VITALS: BP 170/91
[2019-05-31 17:04] LABS: ABSOLUTE NEUTROPHILS 8.5 thou/uL (1.4-8.2); BASOPHILS 0.5 % (0.0-2.0); EOSINOPHILS 1.2 % (0.0-3.0); HEMATOCRIT 40.9 % (37.0-47.0); HEMOGLOBIN 13.7 gm/dL (12.0-15.0); LYMPHOCYTES 6.6 % (24.0-44.0); MCH 33.3 pg (26.0-34.0); MCHC 33.5 g/dL (28.0-37.0); MCV 99.5 fL (80.0-100.0); MONOCYTES 6.9 % (1.0-8.0); PLATELET COUNT 272 thou/uL (150-400); POLYS 84.8 % (36.0-66.0); RBC 4.11 mil/uL (4.20-5.00); RDW 14.2 % (10.5-14.5)
[2019-05-31 17:13] LABS: ANION GAP 7 mmol/L (7-16); BUN 29 mg/dL (7-18); CALCIUM 9.8 mg/dL (8.5-10.1); CHLORIDE 100 mmol/L (98-107); CO2 31 mmol/L (21-32); CREATININE 0.9 mg/dL (0.6-1.0); GLUCOSE 102 mg/dL (74-106); POTASSIUM 4.3 mmol/L (3.5-5.1); SODIUM 138 mmol/L (136-145)
[2019-05-31 17:23] LABS: MAGNESIUM 1.9 mg/dL (1.8-2.4); TROPONIN-I <0.06 ng/mL (<0.06)
[2019-05-31 20:03] VITALS: BP 163/74
--- NOTE | 2019-05-31 20:07 | NUR ---
ED NURSE CALLED TO GIVE REPORT TO INPATIENT NURSE, WAS TOLD SHE WILL HAVE TO CALL BACK
[2019-05-31 20:29] VITALS: BP 166/86
[2019-05-31 20:45] VITALS: BP 165/69
--- NOTE | 2019-05-31 23:44 | NUR ---
2054 ASSUMED CARE OF PT AFTER REPORT FROM ER. 2099 BASELINE ASSESSMENT COMPLETED, PT WITH TWO WOUNDS ONE TO L THIRD TO AND ONE TO RLE, BOTH DOCUMENTED IN CHART WITH PHOTOS. PT WITH REPORTS OF CHEST PAIN FROM RIB FRACTURES, BUT REFUSES PAIN MEDICATION OTHER THAN TYLENOL, STATES SHE WILL NOT TAKE NARCOTICS. PT IS ALSO REFUSING SCD'S, STATING I'M ALREADY TAKING THE SHOT FOR BLOOD CLOTS. FALL PRECAUTIONS IN PLACE AND LATEX ALLERGY BAND ON WITH LATEX ALLERGY DOCUMENTED IN CHART. WILL CONTINUE TO MONITOR. LUNGS ARE DIMINISHED, AND COULD BE SECONDARY TO PT UNABLE TO TAKE A DEEP BREATH SECONDARY TO PAIN. 2330 BLOOD PRESSURE HAS IMPROVED FROM ADMISSION. PT RESTING QUIETLY, AND IS TURNING HERSELF AND CHANGING POSITIONS WITH HOURLY ROUNDING PRESSURE HAS IMPROVED
[2019-06-01 00:10] VITALS: BP 140/75
[2019-06-01 04:00] VITALS: BP 156/71
[2019-06-01 17:14] VITALS: BP 157/78
--- NOTE | 2019-06-01 17:58 | NUR ---
PT ASSESSED AT START OF SHIFT. COUGHED UP CLEAR, THIN MUCOUS. SAT UP IN THE CHAIR SEVERAL HOURS. TAKEN LORTAB FOR PAIN WHICH HAS HELPED. PT TO DECIDE WHEN SHE WANTS TO GO FOR REHAB- [employer] DEVELOPER GAVE SEVERAL NAMES OF PLACES. EATING SMALL AMTS OF FOOD.
[2019-06-01 19:40] VITALS: BP 167/83
--- NOTE | 2019-06-02 02:01 | NUR ---
PT WAS OBSERVED SITTING IN THE RECLINER IN HER ROOM WITH HER HEAD RESTING ON HER BEDSIDE TABLE AT START OF SHIFT.PT C/O PAIN ON HER TAIL BONE AND RIBS,MANAGED WITH MED. NEW PACEMAKER ON L CHEST,IMMOBILIZER IN PLACE TP PREVENT PT FROM RAISING HER ARM.PT ON 1-2L/NC.PT UP WITH SBA TO THE TOILET,VOIDING ADEQUATELY.PT RESTING ON HER BED AT THIS TIME.FALL PRECAUTIONS IN PLACE,CALL LIGHT WITHIN REACH.
[2019-06-02 04:35] VITALS: BP 148/74
[2019-06-02 07:45] VITALS: BP 143/53
--- NOTE | 2019-06-02 10:52 | NUR ---
DISCHARGE PLANNING. POST ACUTE RECOMMENDED AT DISCHARGE. PATIENT REFERRAL FAXED TO [facility] PER REQUEST. CALL PLACED TO SOLOMON HANKS TO NOTIFY. PATIENT IS READY FOR DISCHARGE TODAY. ANTONIO HANKS. FOLLOWING.
[2019-06-02 15:12] VITALS: BP 157/92
--- NOTE | 2019-06-02 17:36 | NUR ---
ASSUMED CARE OF THE PT AT 0700. PT PAIN CONTROLLED WITH PAIN MEDS, SEE EMAR. PT C/O SWELLING IN HANDS, NO SWELLING NOTED. PT C/O HAVING AN ALLERGIC REACTION AFTER EATING BREAKFAST, VITAL SIGNS NORMAL AND NO SWELLING NOTED IN THROAT OR FACE, DOCTOR NOTIFIED. PT STATED, "I DONT WANT TO AND COME BACK TO [facility] BECAUSE I DONT HAVE MY LASIX". VITAL NORMAL, IV DRY AND INTACT. L ARM STRAIGHTENED. BED IN LOWEST POSITION, CALL LIGHT WITHIN REACH AND FALL PRECAUTIONS IN PLACE. WILL CONTINUE TO MONITOR THE PT.
[2019-06-02 20:00] VITALS: BP 156/85
[2019-06-03 03:10] VITALS: BP 166/82
--- NOTE | 2019-06-03 05:06 | NUR ---
PT HAD LOOSE STOOLS X3 AT THE START OF SHIFT.PT FRUSTRATED THAT SHE WAS NOT ABLE TO MAKE IT TO THE BR ON TIME AND SOILED HERSELF.PT C/O PAIN ON HER RIBS AND TAIL BONE,MANAGED WITH PAIN MED.IMMOBILIZER STILL IN PLACE ON PT EDUCATION GIVEN TO PT ABOUT NOT RAISING HER L ARM UP.PT RESTING ON HER BED AT THIS TIME.FALL PRECAUTIONS IN PLACE,CALL LIGHT WITHIN REACH.
[2019-06-03 07:48] VITALS: BP 160/70
[2019-06-03 08:41] VITALS: BP 160/70
--- NOTE | 2019-06-03 08:53 | NUR ---
LATE NOTE: PT ADMITTED RELATED TO CHEST PAIN NON CARDIAC. CM REVIEWED CHART AND SPOKE WITH CARE TEAM. PT HAD DISCHRGED 05/31/19 TO [facility] AND READMITTED TO [facility] SAME DAY. CM MET WITH PT AT BEDSIDE. PT INDICATED SHE HAD BEEN AT [facility] AND DIDN'T LIKE THE FACILITY AND THEY "REFUSED TO DISCHARGE HER SO SME DEMANDED TO GO BACK TO HOSPITAL." CM PROVIDED PT WITH A SNF LIST FOR REVIEW TO SEE WHERE ELSE SHE MIGHT BE INTERESTED IN GOING. PT INDICATED SHE WAS TOO OVERWHELEMED TO LOOK AT LIST DAY OF ADMIT. PT INDICATED REFERRAL COULD BE SENT TO [facility]. [facility] VISITED, THEY CAN ACCEPT. THEY INDICATED THEY COULD ACCEPT PT YESTERDAY BUT THEN STATED THAT B/C PT HAD DIFFERENT DX THIS ADMISSION THAT PT NEEDED NEW 3 MIDNIGHT STAY. CM TO FOLLOW INDICATED WITH DC PLANNING.
--- NOTE | 2019-06-03 12:24 | NUR ---
ASSUMED CARE OF THE PT AT 0700. PT US UP WITH ASSIST TO BSC. PT C/O OF PAIN IN THE TAILBONE, PAIN MEDS GIVEN, PER PT, SEE EMAR. PT RECEIVED LASIX AND C/O SWELLING IN HANDS AND LEGS. 2+ PITTING NOTED IN THE ANDRZEJ LOWER EXTREMITIES. R HAND IV REMOVED, NEW IV R FOREARM DRY AND INTACT. PT MAY DC TO SNF, WILL FOLLOWUP WITH CM. FALL PRECAUTIONS IN PLACE, BED IN LOWEST POSITION AND CALL LIGHT IS WITHIN REACH. WILL CONTINUE TO MONITOR THE PT.
== END 2019-06-03 14:20 | DRG 206 ==
LOC: ER 16:24 → 4S 18:56 → EROBS 18:56 → 4S 20:30
PROVIDERS: Emergency Medicine; ADMIT Hospitalist
DX: S22.39XA Fracture of one rib, unspecified side, initial encounter for closed fracture (principal); I44.2 Atrioventricular block, complete; I42.9 Cardiomyopathy, unspecified; E85.9 Amyloidosis, unspecified; I11.0 Hypertensive heart disease with heart failure; I50.9 Heart failure, unspecified; S20.219A Contusion of unspecified front wall of thorax, initial encounter; I25.10 Atherosclerotic heart disease of native coronary artery without angina pectoris; E78.5 Hyperlipidemia, unspecified; J44.9 Chronic obstructive pulmonary disease, unspecified; Z79.82 Long term (current) use of aspirin; Z88.8 Allergy status to other drugs, medicaments and biological substances; Z90.710 Acquired absence of both cervix and uterus; Z90.49 Acquired absence of other specified parts of digestive tract; Z95.5 Presence of coronary angioplasty implant and graft; Z88.1 Allergy status to other antibiotic agents; Z91.041 Radiographic dye allergy status; Z91.040 Latex allergy status; Z95.810 Presence of automatic (implantable) cardiac defibrillator; X58.XXXA Exposure to other specified factors, initial encounter; Y93.89 Activity, other specified; Y92.89 Other specified places as the place of occurrence of the external cause; Y99.8 Other external cause status; Z79.899 Other long term (current) drug therapy
CPT/HCPCS: 10100

== ENCOUNTER → 2019-12-06 | Outpatient (CLI) | payer OTHER | LOC: SJCVCIMAG 10:32 | PROVIDERS: ATTEND Internal Medicine Cardiovascular Disease | DX: R00.0 Tachycardia, unspecified (principal); I25.10 Atherosclerotic heart disease of native coronary artery without angina pectoris; E78.00 Pure hypercholesterolemia, unspecified; E85.4 Organ-limited amyloidosis; I43 Cardiomyopathy in diseases classified elsewhere; I11.0 Hypertensive heart disease with heart failure; I50.30 Unspecified diastolic (congestive) heart failure; J44.9 Chronic obstructive pulmonary disease, unspecified; I25.2 Old myocardial infarction; K21.9 Gastro-esophageal reflux disease without esophagitis; Z87.891 Personal history of nicotine dependence; Z95.810 Presence of automatic (implantable) cardiac defibrillator; Z79.82 Long term (current) use of aspirin; Z79.899 Other long term (current) drug therapy; Z98.61 Coronary angioplasty status; Z82.49 Family history of ischemic heart disease and other diseases of the circulatory system ==